=== PATIENT | male | born 1935 | race Caucasian/White ===

== ENCOUNTER 2016-08-16 19:32 | Inpatient (IN) ==
[2016-08-16] MEDS ORDERED: 0.9 % Sodium Chloride 1,000 ML IVC ONE ×2 (19:54→21:11)
[2016-08-16 20:40] LABS: Basophils % 0.4 %; Eosinophils % 0.2 %; Hematocrit 39.2 % (37.5-50.1); Hemoglobin 12.4 g/dL (12.9-16.9); Immature Granulocytes % 0.7 % (0-4); Lymphocytes # 0.2 K/mcL (0.6-4.6); Mean Corpuscular HGB Conc 31.6 g/dL (31.6-35.5); Mean Corpuscular Hemoglobin 30.7 pg (28.0-33.3); Mean Platelet Volume 11.8 fL (9.4-12.4); Monocytes # 0.8 K/mcL (0.0-1.3); Monocytes % 7.6 %; Neutrophils # 9.3 K/mcL (1.6-8.9); Platelet Count 123 K/mcL (140-400); Red Blood Count 4.04 M/mcL (4.19-5.50); Red Cell Distribution Width 14.8 % (11.5-14.5); Segmented Neutrophils % 89.1 %
[2016-08-16 20:47] LABS: INR 1.6; Prothrombin Time 17.2 Seconds (9.4-12.1)
[2016-08-16 20:50] LABS: Activated Partial Thrombo Time 30.3 Seconds (26.0-36.0)
[2016-08-16 20:56] LABS: Calcium 8.8 mg/dL (8.6-10.8)
[2016-08-16 20:57] LABS: Potassium 5.5 mEq/L (3.5-4.5)
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
[2016-08-16] MEDS ORDERED: Levofloxacin 750 MG/150 ML 750 MG/150 ML BAG IVPB ONE (22:05)
[2016-08-17] MEDS ORDERED: Calcium Gluconate 1,000 MG in D5% in Water 100 ML IVPB ONE (01:13)
[2016-08-17] MEDS ORDERED: *HR* Morphine 2 MG/ML SYRINGE IVP PRN (01:16)
[2016-08-17] MEDS ORDERED: Ondansetron ODT 4 MG TAB.RAPDIS SL PRN (01:16)
[2016-08-17] MEDS ORDERED: *HR* OxyCODONE Immed Rel 5 MG TABLET PO PRN (01:16)
[2016-08-17] MEDS ORDERED: Naloxone 0.4 MG/ML INJ IVP PRN (01:16)
[2016-08-17] MEDS ORDERED: Ipratropium/Albuterol Neb 3 ML IH ONE (01:27)
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
[2016-08-17 03:32] LABS: Basophils % 0.2 %; Eosinophils % 0.1 %; Hematocrit 34.9 % (37.5-50.1); Immature Granulocytes % 0.3 % (0-4); Lymphocytes # 0.5 K/mcL (0.6-4.6); Lymphocytes % 5.3 %; Mean Corpuscular HGB Conc 31.5 g/dL (31.6-35.5); Mean Corpuscular Hemoglobin 30.9 pg (28.0-33.3); Mean Platelet Volume 11.8 fL (9.4-12.4); Monocytes # 0.9 K/mcL (0.0-1.3); Monocytes % 9.3 %; Platelet Count 116 K/mcL (140-400); Red Blood Count 3.56 M/mcL (4.19-5.50); Red Cell Distribution Width 15.1 % (11.5-14.5); Segmented Neutrophils % 84.8 %
[2016-08-17 03:42] LABS: Calcium 8.6 mg/dL (8.6-10.8); Phosphorous 4.4 mg/dL (2.3-4.7); Potassium 5.1 mEq/L (3.5-4.5)
[2016-08-17] MEDS ORDERED: Sodium Bicarbonate 75 MEQ in 0.45 % Sodium Chloride 1,000 ML IVC SCH (07:45)
[2016-08-17] MEDS ORDERED: Furosemide 20 MG/2 ML VIAL IVP SCH (09:00)
[2016-08-17] MEDS ORDERED: GLUCOSAMINE PO SCH (09:00)
[2016-08-17] MEDS ORDERED: amLODIPine 5 MG TABLET PO SCH (09:00)
[2016-08-17] MEDS ORDERED: Valsartan 160 MG TABLET PO SCH (09:00)
[2016-08-17] MEDS ORDERED: Cholecalciferol (D-3) 1,000 UNIT TABLET PO SCH (09:00)
[2016-08-17] MEDS ORDERED: *HR* Rivaroxaban 15 MG TABLET PO SCH (09:00)
--- NOTE | 2016-08-17 09:02 | Cardiology Consult Note ---
Date of Encounter: 08/17/16 Time of Encounter: 08:59 Assessment and Plan Discussion w patient/family: The assessment and plan as outlined above was discussed with the patient and/or family members who expressed understanding and agreement. All questions were answered. Thank you for involving us in the care of your patient. Please call with any questions. near syncope: do not think this is cardiac in nature elevated trop: last cath as per record did not show any CAD, could be related to worsening renal function c/c afib; asymptomatic , rate controlled RBBB: old plan; a/w fluids will review echo no indications for cath at present Thanks History of Present Illness History of present illness: Mr. Mcqueen is a 80 year old male ith H of atrial fibrilation, CAD, HTN, HLD, and CKD who presents after a fall at home. Patient reports that he was at home in his kitchen this afternoon when he became lightheaded and fell. He reports that he was down for 1-1.5 hours before family found him. He was unable to get up on his own due to pain and weakness. He hit his face on a small table but denies any loss of consciousness. Patient reports that for the past 3-4 days he has had a nonproductive cough, congestion and nausea. He was seen by his PCP today, diagnosed with bronchitis and pleurisy, and started on Levaquin. Patient denies any fevers/chills, changes in vision, headaches, shortness of breath, chest pain or pressure, abdominal pain, or changes in bowel or bladder function. In the ED, temperature 100.6. Patient is in atrial fibrillation, rate controlled. Blood pressure 90s-100s/60s. On arrival was 86% on RA, improved with 2L supplemental oxygen. Labs revealed a potassium of 5.5, Creatinine 2.74 (previous 1.91), CK 462 and troponin of 0.52 (previous 0.02). CXR showed enlarged cardiac silhouette and pulmonary vascular congestion. CT c-spine and CT head negative for any acute injuries. CT face showed periorbital and right premolar subcutaneous soft tissue swelling, no fracture. He denies any cp , sob, His EKG reviewed by me shows afib with RBBB which is old echo is pending Past Med Surg Social Fam HX - Past Medical History Medical history: atrial fibrillation, coronary artery disease, hyperlipidemia, hypertension, renal disease, other Psychiatric history: no psych history - Past Surgical History Surgical History: other - Social History Smoking Status: Current every day smoker Smokeless Tobacco Status: No Alcohol use: occasionally Drug use: none - Family History Son Hx Family Cardiac Disorders: Yes Medications and Allergies Aspirin 81 mg PO DAILY 11/01/15 [History] Cholecalciferol (D-3) [Vitamin D] 2,000 unit PO DAILY 11/01/15 [History] Amlodipine [Norvasc] 5 mg PO DAILY #30 tablet 11/02/15 [Rx] Atorvastatin [Lipitor] 40 mg PO HS tablet 11/02/15 [Rx] Metoprolol [Lopressor] 50 mg PO BID #60 tablet 11/02/15 [Rx] Acetaminophen [Tylenol] 1,000 mg PO BID 08/16/16 [History] Gluc Alvarez/Chondro Alvarez A/Vit C/Mn [Glucosamine Chondroitin Tab] 1 each PO DAILY [History] Levofloxacin [Levofloxacin] 500 mg PO DAILY 08/16/16 [History] Rivaroxaban [Xarelto] 15 mg PO DAILY 08/16/16 [History] Valsartan [Valsartan] 160 mg PO DAILY 08/16/16 [History] Allergies No Known Allergies Allergy (Verified 11/01/15 00:22) All Systems Review: A 10-system review of systems was performed and is negative for pertinent findings except as documented above in the HPI. Physical Examination Vital Signs, Last 4 Hours Temp Pulse Resp BP Pulse Ox 08/17/16 06:31 97.9 F 77 16 114/68 100 08/17/16 05:30 98.5 F 82 18 144/78 93 L Skin: Other (moderate amount of bruises due to fall ) Results 08/17/16 03:08 08/17/16 03:08 Lab Results 08/17/16 08/17/16 08/17/16 03:08 03:08 03:08 WBC 9.5 Hgb 11.0 L Hct 34.9 L Plt Count 116 L Sodium 137 Potassium 5.1 H Chloride 111 H Carbon Dioxide 15 L BUN 55 H Creatinine 2.67 H Glucose 114 H Calcium 8.6 Magnesium Troponin I 2.82 H* 08/17/16 03:08 WBC Hgb Hct Plt Count Sodium Potassium Chloride Carbon Dioxide BUN Creatinine Glucose Calcium Magnesium 2.0 Troponin I Consult Discharge Plan - Plan Referrals: Benoit Cosme Jr, MD [Primary Care Provider] -
[2016-08-17] MEDS ORDERED: Albuterol 2.5 MG/3 ML NEBULIZER IH PRN (09:05)
--- NOTE | 2016-08-17 09:05 | Event Note ---
Date of Encounter: 08/17/16 Time of Encounter: 09:00 80 yo M with pmh CKD 3, atrial fibrillation and HTn who presents after falling at home. He did have upper respiratory symptoms for the past week. 1. fall. ct head negative. hold Xarelto. neuro-check q2 for [address] C- spine and CT head negative for any acute injuries. CT face showed periorbital and right premolar subcutaneous soft tissue swelling, no fracture. 2. dehydration. 3. Elevated troponins likely secondary to SAMANTHA and rhabdomyolysis. check LFTs. Prior [facility] in 2008 showed nonobstructive CAD. 4. Acute worsening of CKD 3 with hyperkalemia and metabolic acidosis. IV bicarbonate drip. close monitoring of kidney function. strict I/O. hold valsartan 5. Acute rhabdomyolysis. bicarb drip. IV lasix. close monitoring of cpk. 6. hypoxia. could be secondary to COPD exacerbation. CT chest r/o aspiration PNA. oxygen. nebs q4hr. mucinex 7. htn. low BP. hold amlodipine and valsartan.
[2016-08-17] MEDS: Aspirin 81 MG TAB.CHEW PO SCH (09:40)
[2016-08-17] MEDS: Ipratropium/Albuterol Neb 3 ML IH SCH ×6 (11:18→23:42)
[2016-08-17 12:55] LABS: Bilirubin,Urine Negative (Negative); Blood,Urine Large (Negative); Clarity,Urine Clear (Clear); Color,Urine Yellow (Yellow); Glucose,Urine (UA) Normal (Normal); Ketones,Urine Negative (Negative); Leukocyte Esterase,Urine Negative (Negative); Nitrite,Urine Negative (Negative); Protein,Urine 30 mg/dL (Neg-Trace); Specific Gravity,Urine 1.011 (1.010-1.025); Urobilinogen,Urine Normal (Normal)
[2016-08-17 12:57] LABS: Bacteria,Urine None Seen per hpf (None-Few); Hyaline Casts,Urine None Seen per lpf (None-Few); Squamous Epithelial Cell,Urine Moderate per lpf (None-Few); WBC,Urine 0-3 per hpf (0-3)
[2016-08-17 13:38] LABS: Albumin 3.8 g/dL (3.5-5.0); Bilirubin,Direct 0.4 mg/dL (0.0-0.5); Bilirubin,Indirect 0.3 mg/dL (0.0-1.2); Bilirubin,Total 0.7 mg/dL (0.2-1.2); Potassium 4.7 mEq/L (3.5-4.5); Total Protein 7.8 g/dL (6.0-8.3)
[2016-08-17] MEDS ORDERED: Furosemide 240 MG in D5% in Water 96 ML IVC SCH (15:26)
[2016-08-17] MEDS: Sodium Bicarbonate 75 MEQ in 0.45 % Sodium Chloride 1,000 ML IVC SCH (16:26)
[2016-08-17] MEDS: Doxycycline 100 MG CAPSULE PO SCH (18:27)
[2016-08-17] MEDS: Acetaminophen 325 MG TABLET PO PRN (18:27)
[2016-08-17] MEDS ORDERED: levoFLOXacin 750 MG TABLET PO SCH (21:00)
[2016-08-18] MEDS: Doxycycline 100 MG CAPSULE PO SCH ×3 (01:43→20:07)
[2016-08-18] MEDS: Sodium Bicarbonate 75 MEQ in 0.45 % Sodium Chloride 1,000 ML IVC SCH ×2 (05:18→16:30)
[2016-08-18] MEDS: Ipratropium/Albuterol Neb 3 ML IH SCH ×5 (06:15→21:03)
[2016-08-18 07:22] LABS: Basophils % 0.2 %; Eosinophils % 0.2 %; Hematocrit 37.1 % (37.5-50.1); Hemoglobin 12.1 g/dL (12.9-16.9); Immature Granulocytes % 0.4 % (0-4); Lymphocytes # 0.4 K/mcL (0.6-4.6); Mean Corpuscular HGB Conc 32.6 g/dL (31.6-35.5); Mean Corpuscular Volume 95.1 fL (83.0-100.0); Mean Platelet Volume 12.1 fL (9.4-12.4); Monocytes # 0.8 K/mcL (0.0-1.3); Monocytes % 8.5 %; Neutrophils # 8.2 K/mcL (1.6-8.9); Platelet Count 114 K/mcL (140-400); Red Cell Distribution Width 15.1 % (11.5-14.5); Segmented Neutrophils % 86.7 %
[2016-08-18 07:46] LABS: Calcium 8.7 mg/dL (8.6-10.8); Magnesium 1.5 mg/dL (1.6-2.6); Phosphorous 4.6 mg/dL (2.3-4.7); Potassium 4.1 mEq/L (3.5-4.5)
[2016-08-18] MEDS ORDERED: Magnesium Sulfate 1 GM in D5% in Water 100 ML IVPB ONE (07:58)
[2016-08-18] MEDS ORDERED: Furosemide 240 MG in D5% in Water 96 ML IVC SCH (08:19)
[2016-08-18] MEDS ORDERED: *HR* OxyCODONE Immed Rel 5 MG TABLET PO PRN (08:19)
--- NOTE | 2016-08-18 10:25 | Cardiology Progress Note ---
Date of Encounter: 08/18/16 Time of Encounter: 10:15 Assessment and Plan Discussion w patient/family: The assessment and plan as outlined above was discussed with the patient and/or family members who expressed understanding and agreement. All questions were answered. Thank you for involving us in the care of your patient. Please call with any questions. near syncope: do not think this is cardiac in nature elevated trop: last cath as per record did not show any CAD, could be related to worsening renal function c/c afib; asymptomatic , rate controlled RBBB: old plan; a/w fluids will review echo no indications for cath at present do not think the syncope is cardiac in nature Thanks Subjective Principal diagnosis: syncope, elevated Trop Interval history: Pt denies any cp sob, pnd echo at bedside: briefly : ef is normal will review in more detail Objective Vital Signs, Last 4 Hours Temp Pulse Resp BP Pulse Ox 08/18/16 08:03 97.8 F 93 18 107/56 93 L Results 08/18/16 06:36 08/18/16 06:36 Lab Results 08/17/16 08/17/16 08/18/16 13:15 13:15 06:36 WBC 9.5 Hgb 12.1 L Hct 37.1 L Plt Count 114 L Sodium 137 Potassium 4.7 H Chloride 109 Carbon Dioxide 18 L BUN 53 H Creatinine 2.67 H Glucose 107 H Calcium 9.0 Magnesium Total Bilirubin 0.7 AST 135 H ALT 45 Alkaline Phosphatase 85 Troponin I 3.97 H* 08/18/16 06:36 WBC Hgb Hct Plt Count Sodium 135 L Potassium 4.1 Chloride 102 Carbon Dioxide 19 BUN 57 H Creatinine 2.82 H Glucose 101 H Calcium 8.7 Magnesium 1.5 L Total Bilirubin AST ALT Alkaline Phosphatase Troponin I Consult Discharge Plan - Plan Referrals: Benoit Cosme Jr, MD [Primary Care Provider] - (office will call patient..)
[2016-08-18] MEDS: Acetaminophen 325 MG TABLET PO PRN (10:55)
[2016-08-18] MEDS: Aspirin 81 MG TAB.CHEW PO SCH (10:56)
[2016-08-18 14:11] LABS: Basophils % 0.2 %; Eosinophils % 0.4 %; Hematocrit 34.6 % (37.5-50.1); Hemoglobin 11.4 g/dL (12.9-16.9); Immature Granulocytes % 0.2 % (0-4); Lymphocytes # 0.6 K/mcL (0.6-4.6); Lymphocytes % 7.8 %; Mean Corpuscular HGB Conc 32.9 g/dL (31.6-35.5); Mean Corpuscular Hemoglobin 31.3 pg (28.0-33.3); Mean Corpuscular Volume 95.1 fL (83.0-100.0); Mean Platelet Volume 11.8 fL (9.4-12.4); Monocytes # 0.7 K/mcL (0.0-1.3); Monocytes % 8.3 %; Neutrophils # 6.8 K/mcL (1.6-8.9); Platelet Count 109 K/mcL (140-400); Red Blood Count 3.64 M/mcL (4.19-5.50); Segmented Neutrophils % 83.1 %
[2016-08-18 14:37] LABS: Calcium 8.6 mg/dL (8.6-10.8); Potassium 3.9 mEq/L (3.5-4.5); Uric Acid 10.7 mg/dL (3.5-7.2)
--- NOTE | 2016-08-18 15:23 | ECHO - Doppler Report ---
Echocardiogram Name: George Mcqueen Date of Study: 08/18/2016 Date: 1935 Ht: 73.0 in Medical Record#: [id number] Age: 80 Wt: 221.0 lb Gender: Male BSA: 2.25 Order #: [id number] Location: [facility] Room #: 2A48 Reading Physician: Seth Butler MD, [facility] Relay Tester Helper: Moraima Akins RVT Ordering Physician: Angeles Darling DO Primary Physician: Benoit Cosme MD Indications: Pulmonary edema on CXR Impressions: LVEF 55-60%. Indeterminate diastolic function. The aortic root is mildly dilated - 4.3cm at sinus of Valsalva (approximately 4.2cm 10/2015 echo) No pulmonary hypertension. The IVC is dilated. Moderately dilated left atrium. Left Ventricular Wall Motion: Rest Echo Findings All wall segments showed normal motion. Findings: Study Quality * Technically adequate exam. Right Ventricle * Normal right ventricular structure and function. Interatrial Septum * No evidence of PFO by color Doppler. Pericardium * The pericardium appears normal. ECG Findings * Normal sinus rhythm. Left Ventricle * LVEF 55-60%. * Indeterminate diastolic function. Aorta * The aortic root is mildly dilated. * The aortic root is 4.3cm at sinus of valsalva Mitral Valve * Normal mitral valve structure. * No mitral stenosis. * Trace mitral regurgitation. Aortic Valve * No aortic stenosis. * Aortic valve not well visualized. * Mild aortic regurgitation. * Aortic leaflets thickened Tricuspid Valve * Trace tricuspid regurgitation. * No tricuspid stenosis. * Estimated RVSP is 24 mmHg. * No pulmonary hypertension. * Estimated RA pressure is 5-8 mmHg. Pulmonic Valve * No pulmonic stenosis. * Trace pulmonic regurgitation. Right Atrium * Mildly dilated right atrium. Left Atrium * Moderately dilated left atrium. IVC * The IVC is dilated. * > 50% respiratory change History Hypertension Hypercholesteremia 11/01/15 a Previous Echo was performed. Measurements: BP: 144/ 80 2D Normal Values RVIDd: 3.12 cm <2.7 cm IVSd: 1.23 cm 0.6 - 1.0 cm LVIDd: 5.04 cm 3.7 - 5.6 cm LVPWd: 1.02 cm 0.6 - 1.1 cm LVIDs: 4.03 cm 1.5 - 3.6 cm AO: 3.00 cm < 4.0 cm LA: 4.70 cm 2.0 - 4.0cm %FS: 20.00 cm >25 % LVOT Diam: 2.10 cm LA volume: 79 Mitral Valve Peak E:.80 m/sec Peak E' Lat Marco Antonio:15 cm/s Peak E' Med Marco Antonio:13.4 cm/s E/E' Lat Ratio:5.3 E/E' Med Ratio:6 Aortic Valve AI pressure Half-time: 785.00 msec Tricuspid Valve TV Regurg Peak Grad: 24.00mmHg TV Regurg Peak Marco Antonio: 2.08m/sec Updated by Seth Butler MD, FACC on 08/18/2016 3:14:32 PM electronically signed on 08/18/2016 3:19:20 PM with status of Final Wall Motion Andres: 1=Normal, 2=Hypokinesis, 3=Akinesis, 4=Dyskinesis, 5=Aneurysmal, 6=Hyperkinetic, X=Not Visualized (Blank)=Missing
--- NOTE | 2016-08-18 16:22 | Internal Med Progress Note ---
Date of Encounter: 08/18/16 Time of Encounter: 12:30 - Assessment and plan (1) Fall Current Visit: Yes Status: Acute Assessment and plan: ct head negative. hold Xarelto. neuro-check q2 for [address] C-spine and CT head negative for any acute injuries. CT face showed periorbital and right premolar subcutaneous soft tissue swelling, no fracture. Qualifiers: Encounter type: initial encounter Qualified Code(s): W19.XXXA - Unspecified fall, initial encounter (2) Dehydration Current Visit: Yes Status: Acute Assessment and plan: secondary to infection. IV fluids (3) Rhabdomyolysis Current Visit: Yes Status: Acute Assessment and plan: secondary to muscle injury (ribs fracture). CPK peaked at 9422. IV bicarbonate drip. close monitoring of kidney function. Qualifiers: Rhabdomyolysis type: non-traumatic Qualified Code(s): M62.82 - Rhabdomyolysis (4) Acute renal failure superimposed on stage 3 chronic kidney disease Current Visit: Yes Status: Acute Assessment and plan: secondary to rhabdomyolysis and severe dehydration. IVF. close monitoring of kidney function. avoid nephrotoxins as possible. (5) Acute hypoxemic respiratory failure Current Visit: Yes Status: Acute Assessment and plan: Secondary to COPD exacerbation and low volume inspiration due to ribs fractures. CT of the chest showed acute nondisplaced fractures of t4, 6, 7 and 97th ribs, change nodules, mild cardiomegaly, allergy component leaflet calcification, moderately to markedly dilated pulmonary arteries, bronchitis. oxygen to keep SaO2 >92% Duonebs. Doxycycline. Mucinex Echocardiogram LVEF 55%, aortic root is mildly dilated 4.3 cm, no pulmonary hypertension, IVC dilated, moderate dilated left atrium. (6) Hypertension Current Visit: Yes Status: Acute Assessment and plan: Pressures avidly. Holding home dose of amlodipine and losartan. Qualifiers: Hypertension type: essential hypertension Qualified Code(s): I10 - Essential (primary) hypertension (7) Elevated troponin Current Visit: Yes Status: Acute Assessment and plan: Related troponin likely secondary to acute kidney injury and rhabdomyolysis. Troponin peaked at 2.97. EKG showed no acute ischemic changes. Cardiology consulted. (8) Hyperkalemia Current Visit: Yes Status: Acute Assessment and plan: Secondary to acute renal failure superimposed on CKD 3. Resolved. (9) Metabolic acidosis Current Visit: Yes Status: Acute Assessment and plan: Secondary to acute worsening of cKD 3. Resolved. (10) Atrial fibrillation Current Visit: No Status: Chronic Assessment and plan: Heart rate is adequate. Continue metoprolol. Patient on Xarelto for primary stroke prevention. holding Xarelto due to head trauma. may resume tomorrow. Qualifiers: Atrial fibrillation type: chronic Qualified Code(s): I48.2 - Chronic atrial fibrillation - Subjective Interval history: pt has pain in left ribs. mild shortness of breath on exertion. - Constitutional Vitals: Temp Pulse Resp BP Pulse Ox 97.9 F 80 18 126/82 96 08/18/16 15:47 08/18/16 15:47 08/18/16 15:47 08/18/16 15:47 08/18/16 15:47 General appearance: Present: A&O X 3, pleasant, no acute distress, answers questions appropriately - ENT ENT exam: Present: mucous membranes moist - Neck Neck exam general surgery: Present: supple, trachea midline. Absent: lymphadenopathy - Respiratory Respiratory exam: Present: CTAB. Absent: wheezes - Cardiovascular Cardiovascular exam: Present: RRR - GI/Abdominal GI/Abdominal exam: Present: normal bowel sounds, soft. Absent: distended, tenderness - Extremities Exam Extremities exam: Absent: pedal edema - Neurological Exam Neurological exam: Present: alert, no focal deficits. Absent: facial droop, speech deficit - Skin Additional comments: Left periorbital bruises. Mild shortness of breath on exertion. Internal Medicine: Result - Labs CBC & Chem 7: 08/18/16 13:54 08/18/16 13:54 Labs: Short CBC 08/18/16 08/18/16 Range/Units 06:36 13:54 WBC 9.5 8.2 (4.3-11.1) K/mcL Hgb 12.1 L 11.4 L (12.9-16.9) g/dL Hct 37.1 L 34.6 L (37.5-50.1) % Plt Count 114 L 109 L (140-400) K/mcL Neutrophils # 8.2 6.8 (1.6-8.9) K/mcL BMP 08/18/16 08/18/16 06:36 13:54 Sodium 135 L 135 L Potassium 4.1 3.9 Chloride 102 100 Carbon Dioxide 19 20 BUN 57 H 63 H Creatinine 2.82 H 3.45 H Glucose 101 H 123 H Calcium 8.7 8.6 - ABG Interpretation ABG results: PT/INR, D-dimer PT 17.2 Seconds (9.4-12.1) H 08/16/16 20:16 Consult Discharge Plan - Plan Referrals: Benoit Cosme Jr, MD [Primary Care Provider] - (office will call patient..)
[2016-08-19] MEDS: Sodium Bicarbonate 75 MEQ in 0.45 % Sodium Chloride 1,000 ML IVC SCH ×2 (00:14→15:16)
[2016-08-19] MEDS: Ipratropium/Albuterol Neb 3 ML IH SCH ×6 (04:17→21:04)
[2016-08-19 04:22] LABS: Creatinine,Urine 92 mg/dL
[2016-08-19 06:32] LABS: Basophils % 0.2 %; Eosinophils % 0.5 %; Hematocrit 34.3 % (37.5-50.1); Immature Granulocytes % 0.3 % (0-4); Lymphocytes # 0.6 K/mcL (0.6-4.6); Lymphocytes % 9.9 %; Mean Corpuscular HGB Conc 32.1 g/dL (31.6-35.5); Mean Corpuscular Volume 93.5 fL (83.0-100.0); Mean Platelet Volume 11.4 fL (9.4-12.4); Monocytes # 0.6 K/mcL (0.0-1.3); Monocytes % 11.1 %; Neutrophils # 4.5 K/mcL (1.6-8.9); Platelet Count 110 K/mcL (140-400); Red Blood Count 3.67 M/mcL (4.19-5.50); Red Cell Distribution Width 14.9 % (11.5-14.5)
[2016-08-19 06:53] LABS: BUN/Creatinine Ratio 22 (6-26); Blood Urea Nitrogen 69 mg/dL (8-26); Calcium 8.2 mg/dL (8.6-10.8); Carbon Dioxide 21 mEq/L (19-29); Chloride 100 mEq/L (98-109); Glucose 105 mg/dL (70-99); Magnesium 1.6 mg/dL (1.6-2.6); Osmolality,Calculated 300 (280-300); Phosphorous 5.4 mg/dL (2.3-4.7); Potassium 3.6 mEq/L (3.5-4.5); Sodium 135 mEq/L (136-145); Uric Acid 10.9 mg/dL (3.5-7.2); eGFR For African Americans 23 (> 60); eGFR For Non-African Americans 19 (> 60)
[2016-08-19 06:54] LABS: Creatine Kinase > 4267 Units/L (30-200); Lactate Dehydrogenase 334 Units/L (159-327)
--- NOTE | 2016-08-19 06:54 | Electrocardiograph Report ---
[address] [address] Test Date: 2016-08-16 Pat Name: George Mcqueen Department: 104 Room: 2A48 Gender: M Visual Lead: : 1935 Requested By: Juan Pastrana Order Number: [id number] Reading MD: Seth Butler MD Measurements Intervals [place] Rate: 89 P: [place]: 0 QRS: 56 QRSD: 150 T: 19 QT: 366 QTc: 413 Interpretive Statements ATRIAL FIBRILLATION RIGHT BUNDLE BRANCH BLOCK Electronically Signed On 08-19-2016 6:52:38 EST by Seth Butler MD
[2016-08-19] MEDS: Aspirin 81 MG TAB.CHEW PO SCH (08:22)
[2016-08-19] MEDS: Doxycycline 100 MG CAPSULE PO SCH ×2 (08:23→22:35)
--- NOTE | 2016-08-19 09:37 | Electrocardiograph Report ---
[address] [place], [place] [address] Test Date: 2016-08-17 Pat Name: George Mcqueen Department: 112 Room: 2A48 Gender: M Value Advisor: : 1935 Requested By: Anneliese Rivera Order Number: [id number] Reading MD: Seth Butler MD Measurements Intervals [place] Rate: 80 P: [place]: 0 QRS: 29 QRSD: 153 T: 9 QT: 394 QTc: 431 Interpretive Statements ATRIAL FIBRILLATION RIGHT BUNDLE BRANCH BLOCK Electronically Signed On 08-19-2016 9:36:22 EST by Seth Butler MD
[2016-08-19] MEDS: Acetaminophen 325 MG TABLET PO PRN (11:36)
[2016-08-19 14:30] LABS: Calcium 8.1 mg/dL (8.6-10.8); Potassium 3.7 mEq/L (3.5-4.5)
--- NOTE | 2016-08-19 15:31 | Internal Med Progress Note ---
Date of Encounter: 08/19/16 Time of Encounter: 11:30 - Assessment and plan (1) Fall Current Visit: Yes Status: Acute Assessment and plan: ct head negative. CT C-spine and CT head negative for any acute injuries. CT face showed periorbital and right premolar subcutaneous soft tissue swelling, no fracture. Qualifiers: Encounter type: initial encounter Qualified Code(s): W19.XXXA - Unspecified fall, initial encounter (2) Dehydration Current Visit: Yes Status: Acute Assessment and plan: resolved. secondary to infection. IV fluids (3) Rhabdomyolysis Current Visit: Yes Status: Acute Assessment and plan: secondary to muscle injury (ribs fracture). CPK peaked at 9422. 08/19: CPK and BUN/Cr levels are trending down. continue IV bicarbonate drip. close monitoring of kidney function. Qualifiers: Rhabdomyolysis type: non-traumatic Qualified Code(s): M62.82 - Rhabdomyolysis (4) Acute renal failure superimposed on stage 3 chronic kidney disease Current Visit: Yes Status: Acute Assessment and plan: secondary to rhabdomyolysis and severe dehydration. slowly improving. IVF. close monitoring of kidney function. avoid nephrotoxins as possible. (5) Acute hypoxemic respiratory failure Current Visit: Yes Status: Acute Assessment and plan: Secondary to COPD exacerbation and low volume inspiration due to ribs fractures. CT of the chest showed acute nondisplaced fractures of t4, 6, 7 and 97th ribs, change nodules, mild cardiomegaly, aortic component leaflet calcification, moderately to markedly dilated pulmonary arteries, bronchitis. oxygen to keep SaO2 >92% Duonebs. Doxycycline. Mucinex Echocardiogram LVEF 55%, aortic root is mildly dilated 4.3 cm, no pulmonary hypertension, IVC dilated, moderate dilated left atrium. (6) Hypertension Current Visit: Yes Status: Acute Assessment and plan: Pressures avidly. Holding home dose of amlodipine and losartan. Qualifiers: Hypertension type: essential hypertension Qualified Code(s): I10 - Essential (primary) hypertension (7) Elevated troponin Current Visit: Yes Status: Acute Assessment and plan: Related troponin likely secondary to acute kidney injury and rhabdomyolysis. Troponin peaked at 2.97. EKG showed no acute ischemic changes. Cardiology consulted. (8) Hyperkalemia Current Visit: Yes Status: Acute Assessment and plan: Secondary to acute renal failure superimposed on CKD 3. Resolved. (9) Metabolic acidosis Current Visit: Yes Status: Acute Assessment and plan: Secondary to acute worsening of cKD 3. Resolved. (10) Atrial fibrillation Current Visit: No Status: Chronic Assessment and plan: Heart rate is adequate. Continue metoprolol. Patient on Xarelto for primary stroke prevention. holding Xarelto due to head trauma. may resume tomorrow. Qualifiers: Atrial fibrillation type: chronic Qualified Code(s): I48.2 - Chronic atrial fibrillation - Subjective Interval history: pt complains of mild pain when taking a deep breath. - Constitutional Vitals: Temp Pulse Resp BP Pulse Ox 97.8 F 80 16 100/61 94 L 08/19/16 10:34 08/19/16 10:34 08/19/16 11:04 08/19/16 10:34 08/19/16 11:04 General appearance: Present: cooperative, A&O X 3, pleasant, no acute distress, answers questions appropriately - Eye Eye exam: Present: PERRL, sclera anicteric - Neck Neck exam general surgery: Present: supple, trachea midline. Absent: lymphadenopathy - Respiratory Respiratory exam: Present: wheezes (mild at lower lung wills) - Cardiovascular Cardiovascular exam: Present: RRR - GI/Abdominal GI/Abdominal exam: Present: normal bowel sounds, soft. Absent: distended, tenderness - Extremities Exam Extremities exam: Absent: pedal edema - Skin Skin exam: Absent: intact (left periorbital area with bruises and small hematoma.) Internal Medicine: Result - Labs CBC & Chem 7: 08/19/16 05:58 08/19/16 13:48 Labs: Short CBC 08/19/16 Range/Units 05:58 WBC 5.7 (4.3-11.1) K/mcL Hgb 11.0 L (12.9-16.9) g/dL Hct 34.3 L (37.5-50.1) % Plt Count 110 L (140-400) K/mcL Neutrophils # 4.5 (1.6-8.9) K/mcL BMP 08/19/16 08/19/16 05:58 13:48 Sodium 135 L 134 L Potassium 3.6 3.7 Chloride 100 98 Carbon Dioxide 21 23 BUN 69 H 75 H Creatinine 3.18 H 3.02 H Glucose 105 H 123 H Calcium 8.2 L 8.1 L - ABG Interpretation ABG results: PT/INR, D-dimer PT 17.2 Seconds (9.4-12.1) H 08/16/16 20:16 Consult Discharge Plan - Plan Referrals: Benoit Cosme Jr, MD [Primary Care Provider] - (office will call patient to schedule for an appointment..)
[2016-08-19] MEDS: *HR* Rivaroxaban 15 MG TABLET PO SCH (16:49)
[2016-08-20] MEDS: Ipratropium/Albuterol Neb 3 ML IH SCH ×7 (00:15→23:23)
[2016-08-20 07:11] LABS: Hemoglobin 10.4 g/dL (12.9-16.9)
[2016-08-20 07:13] LABS: Basophils % 0.2 %; Eosinophils # 0.1 K/mcL (0.0-0.6); Eosinophils % 2.7 %; Hematocrit 32.9 % (37.5-50.1); Immature Granulocytes % 0.5 % (0-4); Immature Platelets 6.5 % (1.1-6.1); Lymphocytes # 0.7 K/mcL (0.6-4.6); Lymphocytes % 14.7 %; Mean Corpuscular HGB Conc 31.6 g/dL (31.6-35.5); Mean Corpuscular Hemoglobin 29.9 pg (28.0-33.3); Mean Corpuscular Volume 94.5 fL (83.0-100.0); Mean Platelet Volume 11.5 fL (9.4-12.4); Monocytes # 0.6 K/mcL (0.0-1.3); Monocytes % 14.1 %; Platelet Count 104 K/mcL (140-400); Red Blood Count 3.48 M/mcL (4.19-5.50); Red Cell Distribution Width 14.9 % (11.5-14.5); Segmented Neutrophils % 67.8 %
[2016-08-20 07:18] LABS: Calcium 8.3 mg/dL (8.6-10.8); Magnesium 1.9 mg/dL (1.6-2.6); Phosphorous 4.8 mg/dL (2.3-4.7); Potassium 3.7 mEq/L (3.5-4.5)
[2016-08-20] MEDS: Aspirin Enteric Coated 81 MG Tablet PO SCH (08:54)
[2016-08-20] MEDS: Doxycycline 100 MG CAPSULE PO SCH ×2 (08:54→20:53)
--- NOTE | 2016-08-20 09:28 | Internal Med Progress Note ---
Date of Encounter: 08/20/16 Time of Encounter: 09:25 - Assessment and plan (1) Acute kidney failure Current Visit: Yes Status: Acute Assessment and plan: Acute and chronic renal failure, CKD4 secondary to rhabdomyolysis possibly from multiple injuries/fall and dehydration continue holding Lipitor Continue bicarbonate drip, cannot increase fluid rate more than 75 mL's per hours the patient is already congested Consider repeating chest x-ray was Start Lasix IV 20 mg daily Qualifiers: Acute renal failure type: unspecified Qualified Code(s): N17.9 - Acute kidney failure, unspecified (2) Cellulitis Current Visit: Yes Status: Acute Assessment and plan: Left lower extremity cellulitis Continue doxycycline day 4 Qualifiers: Site of cellulitis: extremity Site of cellulitis of extremity: lower extremity Laterality: left Qualified Code(s): L03.116 - Cellulitis of left lower limb (3) Acute hypoxemic respiratory failure Current Visit: Yes Status: Acute Assessment and plan: Secondary to COPD exacerbation and low volume inspiration due to ribs fractures. CT of the chest showed acute nondisplaced fractures of t4, 6, 7 and 97th ribs, change nodules, mild cardiomegaly, aortic component leaflet calcification, moderately to markedly dilated pulmonary arteries, bronchitis. oxygen to keep SaO2 >92% Duonebs. Doxycycline Start prednisone Mucinex Echocardiogram LVEF 55%, aortic root is mildly dilated 4.3 cm, no pulmonary hypertension, IVC dilated, moderate dilated left atrium. (4) COPD exacerbation Current Visit: Yes Status: Acute (5) Closed head injury Current Visit: Yes Status: Acute Assessment and plan: Secondary to fall CT scan of the head and C-spine did not show any fractures. CT face showed periorbital and right premolar subcutaneous soft tissue swelling , no fracture. Qualifiers: Encounter type: initial encounter Qualified Code(s): S09.90XA - Unspecified injury of head, initial encounter (6) NSTEMI (non-ST elevated myocardial infarction) Current Visit: Yes Status: Acute Assessment and plan: Likely secondary to demand ischemia Was evaluated by cardiology ( signed off) Medical management recommended, cecal episode not cardiac in nature elevated trop: last cath as per record did not show any CAD, could be related to worsening renal function Continue aspirin (7) Rhabdomyolysis Current Visit: Yes Status: Acute Assessment and plan: secondary to muscle injury (ribs fracture). CPK peaked at 9422. 2/27: CPK and BUN/Cr levels are trending down. continue IV bicarbonate drip. close monitoring of kidney function. Qualifiers: Rhabdomyolysis type: non-traumatic Qualified Code(s): M62.82 - Rhabdomyolysis (8) Atrial fibrillation Current Visit: No Status: Chronic Assessment and plan: Heart rate is adequate. Continue metoprolol. Continue Xarelto for primary stroke prevention. held Xarelto due to head trauma at the beginning of his hospitalization Qualifiers: Atrial fibrillation type: chronic Qualified Code(s): I48.2 - Chronic atrial fibrillation - Time Spent With Patient Greater than 35 minutes - Subjective Interval history: Patient is feeling short of breath, complains of left chest pain from fractures , denies any fevers, no dysuria, no diarrhea. - Constitutional Vitals: Temp Pulse Resp BP Pulse Ox 98.6 F 81 16 122/73 98 08/20/16 07:33 08/20/16 07:33 08/20/16 07:48 08/20/16 07:33 08/20/16 07:48 General appearance: Present: cooperative, A&O X 3, pleasant, no acute distress, answers questions appropriately - Head Head exam: Present: atraumatic, normocephalic - Eye Eye exam: Present: PERRL, conjuntiva pink, sclera anicteric Pupils: Present: PERRL - Neck Neck exam general surgery: Present: supple, trachea midline. Absent: lymphadenopathy - Respiratory Respiratory exam: Present: CTAB, rales (Diffuse crackles in both lung wills). Absent: accessory muscle use, rhonchi, wheezes - Cardiovascular Cardiovascular exam: Present: RRR, +S1, +S2. Absent: diastolic murmur, gallop, rubs, systolic murmur - GI/Abdominal GI/Abdominal exam: Present: normal bowel sounds, soft, no peritoneal signs. Absent: distended, tenderness - Extremities Exam Extremities exam: Present: warm, radial pulses palpable and symetrical. Absent : calf tenderness, cyanotic, pedal edema - Neurological Exam Neurological exam: Present: CN II-XII intact, oriented X3, no focal deficits. Absent: pronater drift, facial droop, speech deficit - Skin Skin exam: Present: dry. Absent: intact Additional comments: Multiple excoriations in the lower extremities mostly on the left, erythema has decreased Internal Medicine: Result - Labs CBC & Chem 7: 08/20/16 06:16 08/20/16 06:16 Labs: Short CBC 08/20/16 Range/Units 06:16 WBC 4.4 (4.3-11.1) K/mcL Hgb 10.4 L (12.9-16.9) g/dL Hct 32.9 L (37.5-50.1) % Plt Count 104 L (140-400) K/mcL Neutrophils # 3.0 (1.6-8.9) K/mcL BMP 08/19/16 08/20/16 13:48 06:16 Sodium 134 L 138 Potassium 3.7 3.7 Chloride 98 102 Carbon Dioxide 23 24 BUN 75 H 67 H Creatinine 3.02 H 2.37 H Glucose 123 H 97 Calcium 8.1 L 8.3 L - ABG Interpretation ABG results: PT/INR, D-dimer PT 17.2 Seconds (9.4-12.1) H 08/16/16 20:16 Consult Discharge Plan - Plan Referrals: Benoit Cosme Jr, MD [Primary Care Provider] - (office will call patient to schedule for an appointment..)
[2016-08-20] MEDS ORDERED: Furosemide 40 MG/4 ML VIAL IV SCH (09:30)
[2016-08-20] MEDS: predniSONE 20 MG TABLET PO SCH (10:13)
[2016-08-20] MEDS: *HR* Rivaroxaban 15 MG TABLET PO SCH (16:45)
[2016-08-20] MEDS: Sodium Bicarbonate 75 MEQ in 0.45 % Sodium Chloride 1,000 ML IVC SCH (20:55)
[2016-08-21] MEDS: Ipratropium/Albuterol Neb 3 ML IH SCH ×6 (04:54→23:26)
[2016-08-21 07:33] LABS: Calcium 8.7 mg/dL (8.6-10.8); Potassium 3.7 mEq/L (3.5-4.5)
--- NOTE | 2016-08-21 08:40 | Internal Med Progress Note ---
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 possibly from multiple injuries/fall and dehydration improving continue holding Lipitor Continue bicarbonate drip, increase fluid rate up to 100 mL's per hour, the patient is less congested Consider repeating chest x-ray if worse Increase Lasix IV up to 20 mg twice a day Qualifiers: Acute renal failure type: unspecified Qualified Code(s): N17.9 - Acute kidney failure, unspecified (2) Cellulitis Current Visit: Yes Status: Acute Assessment and plan: Left lower extremity cellulitis Continue doxycycline day 5 Qualifiers: Site of cellulitis: extremity Site of cellulitis of extremity: lower extremity Laterality: left Qualified Code(s): L03.116 - Cellulitis of left lower limb (3) Acute hypoxemic respiratory failure Current Visit: Yes Status: Acute Assessment and plan: Secondary to COPD exacerbation and low volume inspiration due to ribs fractures. CT of the chest showed acute nondisplaced fractures of t4, 6, 7 and 97th ribs, change nodules, mild cardiomegaly, aortic component leaflet calcification, moderately to markedly dilated pulmonary arteries, bronchitis. oxygen to keep SaO2 >92% Duonebs. Doxycycline COntinue prednisone (started on Aug 20 2016) Mucinex Echocardiogram LVEF 55%, aortic root is mildly dilated 4.3 cm, no pulmonary hypertension, IVC dilated, moderate dilated left atrium. (4) COPD exacerbation Current Visit: Yes Status: Acute (5) Closed head injury Current Visit: Yes Status: Acute Assessment and plan: Secondary to fall CT scan of the head and C-spine did not show any fractures. CT face showed periorbital and right premolar subcutaneous soft tissue swelling , no fracture. Qualifiers: Encounter type: initial encounter Qualified Code(s): S09.90XA - Unspecified injury of head, initial encounter (6) NSTEMI (non-ST elevated myocardial infarction) Current Visit: Yes Status: Acute Assessment and plan: Likely secondary to demand ischemia Was evaluated by cardiology ( signed off) Medical management recommended, cecal episode not cardiac in nature elevated trop: last cath as per record did not show any CAD, could be related to worsening renal function Continue aspirin (7) Rhabdomyolysis Current Visit: Yes Status: Acute Assessment and plan: secondary to muscle injury (ribs fracture). CPK peaked at 9422. 08/19: CPK and BUN/Cr levels are trending down. continue IV bicarbonate drip. close monitoring of kidney function. Qualifiers: Rhabdomyolysis type: non-traumatic Qualified Code(s): M62.82 - Rhabdomyolysis (8) Atrial fibrillation Current Visit: No Status: Chronic Assessment and plan: Heart rate is adequate. Continue metoprolol. Continue Xarelto for primary stroke prevention. held Xarelto due to head trauma at the beginning of his hospitalization Qualifiers: Atrial fibrillation type: chronic Qualified Code(s): I48.2 - Chronic atrial fibrillation - Time Spent With Patient Greater than 35 minutes - Subjective Interval history: Patient is feeling less short of breath, complains of left chest pain from fractures, denies any fevers, no dysuria, no diarrhea. No muscle pain - Constitutional Vitals: Temp Pulse Resp BP Pulse Ox 97.8 F 81 20 129/77 92 L 08/21/16 06:31 08/21/16 06:31 08/21/16 08:33 08/21/16 06:08/21/16 08:33 General appearance: Present: cooperative, A&O X 3, pleasant, no acute distress, answers questions appropriately - Head Head exam: Present: atraumatic, normocephalic - Eye Eye exam: Present: PERRL, conjuntiva pink, sclera anicteric Pupils: Present: PERRL - Neck Neck exam general surgery: Present: supple, trachea midline. Absent: lymphadenopathy - Respiratory Respiratory exam: Present: CTAB, rales (Diffuse crackles but less intense than yesterday). Absent: accessory muscle use, rhonchi, wheezes - Cardiovascular Cardiovascular exam: Present: RRR, +S1, +S2. Absent: diastolic murmur, gallop, rubs, systolic murmur - GI/Abdominal GI/Abdominal exam: Present: normal bowel sounds, soft, no peritoneal signs. Absent: distended, tenderness - Extremities Exam Extremities exam: Present: warm, radial pulses palpable and symetrical. Absent : calf tenderness, cyanotic, pedal edema Additional comments: Multiple excoriations in both lower extremities, no erythema - Neurological Exam Neurological exam: Present: CN II-XII intact, oriented X3, no focal deficits. Absent: pronater drift, facial droop, speech deficit - Skin Skin exam: Present: dry, intact Internal Medicine: Result - Labs CBC & Chem 7: 08/20/16 06:16 08/21/16 06:13 Labs: BMP 08/21/16 06:13 Sodium 140 Potassium 3.7 Chloride 100 Carbon Dioxide 27 BUN 64 H Creatinine 2.01 H Glucose 106 H Calcium 8.7 - ABG Interpretation ABG results: PT/INR, D-dimer PT 17.2 Seconds (9.4-12.1) H 08/16/16 20:16 Consult Discharge Plan - Plan Referrals: Benoit Cosme Jr, MD [Primary Care Provider] - (office will call patient to schedule for an appointment..)
[2016-08-21] MEDS: Doxycycline 100 MG CAPSULE PO SCH ×2 (08:43→21:57)
[2016-08-21] MEDS: Aspirin Enteric Coated 81 MG Tablet PO SCH (08:43)
[2016-08-21] MEDS: predniSONE 20 MG TABLET PO SCH (08:43)
[2016-08-21] MEDS ORDERED: Furosemide 40 MG/4 ML VIAL ONE (08:46)
[2016-08-21] MEDS: Sodium Bicarbonate 75 MEQ in 0.45 % Sodium Chloride 1,000 ML IVC SCH ×2 (10:10→21:56)
[2016-08-21] MEDS: Furosemide 40 MG/4 ML VIAL IV SCH ×2 (10:11→21:56)
[2016-08-21] MEDS: *HR* Rivaroxaban 15 MG TABLET PO SCH (16:03)
[2016-08-22] MEDS: Ipratropium/Albuterol Neb 3 ML IH SCH ×6 (04:02→23:13)
[2016-08-22 07:12] LABS: Potassium 4.1 mEq/L (3.5-4.5)
--- NOTE | 2016-08-22 08:21 | Internal Med Progress Note ---
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 possibly from multiple injuries/fall and dehydration improving continue holding Lipitor Continue bicarbonate drip, increased fluid rate up to 100 mL's per hour, the patient is less congested Consider repeating chest x-ray if worse continue Lasix IV up to 20 mg twice a day Qualifiers: Acute renal failure type: unspecified Qualified Code(s): N17.9 - Acute kidney failure, unspecified (2) Cellulitis Current Visit: Yes Status: Acute Assessment and plan: Left lower extremity cellulitis Continue doxycycline day 6 Qualifiers: Site of cellulitis: extremity Site of cellulitis of extremity: lower extremity Laterality: left Qualified Code(s): L03.116 - Cellulitis of left lower limb (3) Acute hypoxemic respiratory failure Current Visit: Yes Status: Acute Assessment and plan: Secondary to COPD exacerbation and low volume inspiration due to ribs fractures. CT of the chest showed acute nondisplaced fractures of t4, 6, 7 and 97th ribs, change nodules, mild cardiomegaly, aortic component leaflet calcification, moderately to markedly dilated pulmonary arteries, bronchitis. oxygen to keep SaO2 >92% Duonebs. Doxycycline COntinue prednisone (started on Aug 20 2016) Mucinex Echocardiogram LVEF 55%, aortic root is mildly dilated 4.3 cm, no pulmonary hypertension, IVC dilated, moderate dilated left atrium. (4) COPD exacerbation Current Visit: Yes Status: Acute (5) Closed head injury Current Visit: Yes Status: Acute Assessment and plan: Secondary to fall CT scan of the head and C-spine did not show any fractures. CT face showed periorbital and right premolar subcutaneous soft tissue swelling , no fracture. Qualifiers: Encounter type: initial encounter Qualified Code(s): S09.90XA - Unspecified injury of head, initial encounter (6) NSTEMI (non-ST elevated myocardial infarction) Current Visit: Yes Status: Acute Assessment and plan: Likely secondary to demand ischemia Was evaluated by cardiology ( signed off) Medical management recommended, cecal episode not cardiac in nature elevated trop: last cath as per record did not show any CAD, could be related to worsening renal function Continue aspirin (7) Rhabdomyolysis Current Visit: Yes Status: Acute Assessment and plan: secondary to muscle injury (ribs fracture). CPK peaked at 9422. 08/19: CPK and BUN/Cr levels are trending down. continue IV bicarbonate drip. close monitoring of kidney function. Qualifiers: Rhabdomyolysis type: non-traumatic Qualified Code(s): M62.82 - Rhabdomyolysis (8) Atrial fibrillation Current Visit: No Status: Chronic Assessment and plan: Heart rate is adequate. Continue metoprolol. Continue Xarelto for primary stroke prevention. 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 Patient is feeling less short of breath, complains of left chest pain from fractures, denies any fevers, no dysuria, no diarrhea. No muscle pain - Constitutional Vitals: Temp Pulse Resp BP Pulse Ox 97.6 F 80 16 130/84 90 L 08/22/16 06:57 08/22/16 06:57 08/22/16 06:57 08/22/16 06:57 08/22/16 06:57 General appearance: Present: cooperative, A&O X 3, pleasant, no acute distress, answers questions appropriately - Head Head exam: Present: atraumatic, normocephalic - Eye Eye exam: Present: PERRL, conjuntiva pink, sclera anicteric Pupils: Present: PERRL - Neck Neck exam general surgery: Present: supple, trachea midline. Absent: lymphadenopathy - Respiratory Respiratory exam: Present: CTAB, rales (bilateral crackles). Absent: accessory muscle use, rhonchi, wheezes - Cardiovascular Cardiovascular exam: Present: RRR, +S1, +S2. Absent: diastolic murmur, gallop, rubs, systolic murmur - GI/Abdominal GI/Abdominal exam: Present: normal bowel sounds, soft, no peritoneal signs. Absent: distended, tenderness - Extremities Exam Extremities exam: Present: warm, radial pulses palpable and symetrical. Absent : calf tenderness, cyanotic, pedal edema - Neurological Exam Neurological exam: Present: CN II-XII intact, oriented X3, no focal deficits. Absent: pronater drift, facial droop, speech deficit - Skin Skin exam: Present: dry. Absent: intact (Multiple facial excoriations, and multiple lower extremity excoriations most signs of infection, erythema has subsided) Internal Medicine: Result - Labs CBC & Chem 7: 08/20/16 06:16 08/22/16 05:25 Labs: BMP 08/22/16 05:25 Sodium 141 Potassium 4.1 Chloride 98 Carbon Dioxide 29 BUN 62 H Creatinine 2.08 H Glucose 85 Calcium 9.0 - ABG Interpretation ABG results: PT/INR, D-dimer PT 17.2 Seconds (9.4-12.1) H 08/16/16 20:16 Consult Discharge Plan - Plan Referrals: Benoit Cosme Jr, MD [Primary Care Provider] - (office will call patient to schedule for an appointment..)
[2016-08-22] MEDS: Furosemide 40 MG/4 ML VIAL IV SCH ×2 (09:20→21:37)
[2016-08-22] MEDS: Aspirin Enteric Coated 81 MG Tablet PO SCH (09:20)
[2016-08-22] MEDS: predniSONE 20 MG TABLET PO SCH (09:20)
[2016-08-22] MEDS: Doxycycline 100 MG CAPSULE PO SCH (09:20)
[2016-08-22] MEDS: Acetaminophen 325 MG TABLET PO PRN ×2 (09:22→21:41)
[2016-08-22] MEDS: Sodium Bicarbonate 75 MEQ in 0.45 % Sodium Chloride 1,000 ML IVC SCH (13:10)
[2016-08-22] MEDS: *HR* Rivaroxaban 15 MG TABLET PO SCH (17:06)
[2016-08-23] MEDS: Sodium Bicarbonate 75 MEQ in 0.45 % Sodium Chloride 1,000 ML IVC SCH (02:02)
[2016-08-23] MEDS: Ipratropium/Albuterol Neb 3 ML IH SCH ×3 (03:21→11:40)
[2016-08-23 06:27] LABS: Calcium 8.9 mg/dL (8.6-10.8); Potassium 4.1 mEq/L (3.5-4.5)
[2016-08-23] MEDS ORDERED: predniSONE 20 MG TABLET PO SCH (07:56)
--- NOTE | 2016-08-23 07:59 | Discharge Summary ---
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 possibly from multiple injuries/fall and dehydration Qualifiers: Acute renal failure type: unspecified Qualified Code(s): N17.9 - Acute kidney failure, unspecified (2) Cellulitis Priority: Secondary Status: Acute Comments: Left lower extremity cellulitis received 7 days of doxycycline Qualifiers: Site of cellulitis: extremity Site of cellulitis of extremity: lower extremity Laterality: left Qualified Code(s): L03.116 - Cellulitis of left lower limb (3) Acute hypoxemic respiratory failure Priority: Secondary Status: Acute Comments: Secondary to COPD exacerbation and low volume inspiration due to ribs fractures. CT of the chest showed acute nondisplaced fractures of t4, 6, 7 and 97th ribs, change nodules, mild cardiomegaly, aortic component leaflet calcification, moderately to markedly dilated pulmonary arteries, bronchitis. (4) COPD exacerbation Priority: Secondary Status: Acute (5) Closed head injury Priority: Secondary Status: Acute Comments: Secondary to fall CT scan of the head and C-spine did not show any fractures. CT face showed periorbital and right premolar subcutaneous soft tissue swelling , no fracture. Qualifiers: Encounter type: initial encounter Qualified Code(s): S09.90XA - Unspecified injury of head, initial encounter (6) NSTEMI (non-ST elevated myocardial infarction) Priority: Secondary Status: Acute Comments: Likely secondary to demand ischemia Was evaluated by cardiology ( signed off) Medical management recommended, syncopal episode not cardiac in nature elevated trop: last cath as per record did not show any CAD, could be related to worsening renal function (7) Rhabdomyolysis Priority: Primary Status: Acute Qualifiers: Rhabdomyolysis type: non-traumatic Qualified Code(s): M62.82 - Rhabdomyolysis (8) Atrial fibrillation Priority: Secondary Status: Chronic Comments: Continue metoprolol. Continue Xarelto for primary stroke prevention. held Xarelto due to head trauma at the beginning of his hospitalization Qualifiers: Atrial fibrillation type: chronic Qualified Code(s): I48.2 - Chronic atrial fibrillation - Discharge Medications Prescriptions: Furosemide [Lasix] 20 mg PO DAILY #30 tablet PredniSONE 20 mg PO DAILY 6 Days Home Medications: Aspirin 81 mg PO DAILY 11/01/15 [History] Cholecalciferol (D-3) [Vitamin D] 2,000 unit PO DAILY 11/01/15 [History] Amlodipine [Norvasc] 5 mg PO DAILY #30 tablet 11/02/15 [Rx] Metoprolol [Lopressor] 50 mg PO BID #60 tablet 11/02/15 [Rx] Acetaminophen [Tylenol] 1,000 mg PO BID 08/16/16 [History] Gluc Alvarez/Chondro Alvarez A/Vit C/Mn [Glucosamine Chondroitin Tab] 1 each PO DAILY [History] Levofloxacin 500 mg PO DAILY 08/16/16 [History] Rivaroxaban [Xarelto] 15 mg PO DAILY 08/16/16 [History] Valsartan 160 mg PO DAILY 08/16/16 [History] Furosemide [Lasix] 20 mg PO DAILY #30 tablet 08/23/16 [Rx] PredniSONE 20 mg PO DAILY 6 Days 08/23/16 [Rx] Allergies/Adverse Reactions: Allergies No Known Allergies Allergy (Verified 11/01/15 00:22) Date of admission: 08/17/16 08:08 Primary care physician: Benoit Cosme Jr, MD - Patient Status Disposition: Home, Self-Care Condition: Good Overall status at discharge: patient is progressing back to baseline - Discharge Instructions Follow Up With: Benoit Cosme Jr, MD [Primary Care Provider] - (office will call patient to schedule for an appointment..) Additional Instructions: Follow with primary care physician within the next 7 days. Taper down prednisone. Continue Lasix 20 mg oral daily. Stop Lipitor until following with primary care physician. - Diet and Activity Activity: increase activity as tolerated Diet: low fat, low cholesterol Hospital course: Mr. Mcqueen is a 80 year old male with PMH of atrial fibrillation, CAD, HTN, HLD , and CKD4 who presented after a fall at home. Patient reported that he was at home in his kitchen when he became lightheaded and fell. He reported that he was down for 1-1.5 hours before his family found him. He was unable to get up on his own due to pain and weakness. He hit his face on a small table but denied any loss of consciousness. Reported that for the past 3-4 days he had a nonproductive cough, congestion and nausea. He was seen by his PCP , was diagnosed with bronchitis and pleurisy, and was started on Levaquin. The patient tested negative for influenza A and B. In the ED, his temperature was 100.6, was in atrial fibrillation, rate controlled. Labs revealed a potassium of 5.5, Creatinine 2.74 (previous 1.91), CK 462 ( peaked at >9000) and troponin of 0.52 (previous 0.02). CXR showed enlarged cardiac silhouette and pulmonary vascular congestion. CT c-spine and CT head negative for any acute injuries. CT face showed periorbital and right premolar subcutaneous soft tissue swelling, no fracture. Upon admission, the patient was continued on doxycycline for lower extremity cellulitis could have caused all his dehydration and fall. He has received 7 days of doxycycline and his cellulitis has completely subsided. Unfortunately, his CPK peaked at more than 9,000 for which he was started on IV fluids, he got congested and Lasix had to be started. Due to his acute bronchitis, the patient also developed a mild COPD exacerbation and had to be started on prednisone. The patient was continued on a bicarbonate drip, 2 days prior to his discharge he refused during the night to continue the drip and was off for many hours. His creatinine came down to 2.01 and increased slightly at 2.73, his baseline is closer to 2. The patient was evaluated by the cardiology service, no cardiac catheterization was recommended, last cath as per record did not show any CAD His creatinine kinase has decreased down to 1940. The patient was given the option to stay an additional day but his insisting on being discharged. He was given Lasix 20 mg twice a day, his dose of Lasix will be decreased only to oral 20 mg daily and his prednisone will be reduced to 20 mg daily for 3 days and 10 mg for 3 days and stop. He was told to come back to the emergency room if his condition would worsen. Lipitor was held during his hospitalization The patient will stay until later today to receive some fluids, she was given again the option to stay an additional day but he refused. Risks were explained , including renal failure worsening and Time spent discussing smoking cessation with patient: 3 to 10 minutes - Time Spent with Patient Total time spent providing and/or coordinating discharge services: Greater than 30 minutes (40 min) - Constitutional Vitals: Temp Pulse Resp BP Pulse Ox 97.7 F 89 16 157/95 92 L 03/03/17 07:04 08/23/16 07:04 08/23/16 07:04 08/23/16 07:04 08/23/16 07:04 General appearance: Present: cooperative, A&O X 3, pleasant, no acute distress, answers questions appropriately - Head Head exam: Present: atraumatic, normocephalic - Eye Eye exam: Present: PERRL, conjuntiva pink, sclera anicteric Pupils: Present: PERRL - Neck Neck exam general surgery: Present: supple, trachea midline. Absent: lymphadenopathy - Respiratory Respiratory exam: Present: decreased breath sounds, CTAB, rales (Fine bibasilar crackles have improved considerably). Absent: accessory muscle use, rhonchi, wheezes - Cardiovascular Cardiovascular exam: Present: RRR, +S1, +S2. Absent: diastolic murmur, gallop, rubs, systolic murmur - GI/Abdominal GI/Abdominal exam: Present: normal bowel sounds, soft, no peritoneal signs. Absent: distended, tenderness - Extremities Exam Extremities exam: Present: warm, radial pulses palpable and symetrical. Absent : calf tenderness, cyanotic, pedal edema - Neurological Exam Neurological exam: Present: CN II-XII intact, oriented X3, no focal deficits. Absent: pronater drift, facial droop, speech deficit - Skin Skin exam: Present: dry. Absent: intact (Multiple facial excoriations, and multiple lower extremity excoriations, erythema has subsided)
[2016-08-23] MEDS ORDERED: Furosemide 20 MG TABLET PO SCH (09:00)
[2016-08-23] MEDS: Aspirin Enteric Coated 81 MG Tablet PO SCH (10:17)
[2016-08-23] MEDS: Acetaminophen 325 MG TABLET PO PRN (10:17)
[2016-08-23 11:02] VITALS: BP 154/91
== END 2016-08-23 13:30 | disposition home or self-care (01) | DRG 280 ==
LOC: EMEROO 19:32 → 2ANU 19:32 → SUATTDRO 08-17 08:08 → 2ANU 08-18 07:49
PROVIDERS: ADMIT Pediatrics; ATTEND Internal Medicine

== ENCOUNTER 2017-03-17 14:42 | Inpatient (IN) ==
[2017-03-17 15:49] LABS: Basophils # 0.1 K/mcL (0.0-0.2); Basophils % 0.5 %; Eosinophils # 0.8 K/mcL (0.0-0.6); Eosinophils % 7.7 %; Hematocrit 28.3 % (37.5-50.1); Hemoglobin 8.4 g/dL (12.9-16.9); Immature Granulocytes % 0.3 % (0-4); Lymphocytes # 1.2 K/mcL (0.6-4.6); Lymphocytes % 11.6 %; Mean Corpuscular HGB Conc 29.7 g/dL (31.6-35.5); Mean Corpuscular Hemoglobin 28.4 pg (28.0-33.3); Mean Corpuscular Volume 95.6 fL (83.0-100.0); Mean Platelet Volume 11.5 fL (9.4-12.4); Monocytes # 0.6 K/mcL (0.0-1.3); Monocytes % 5.6 %; Neutrophils # 7.4 K/mcL (1.6-8.9); Platelet Count 162 K/mcL (140-400); Red Blood Count 2.96 M/mcL (4.19-5.50); Red Cell Distribution Width 15.7 % (11.5-14.5); Segmented Neutrophils % 74.3 %
[2017-03-17 15:59] LABS: Calcium 9.2 mg/dL (8.6-10.8); Potassium 4.7 mEq/L (3.5-4.5)
[2017-03-17 16:43] LABS: Thyroid Stimulating Hormone 1.999 mcIU/mL (0.350-4.840)
[2017-03-17] MEDS ORDERED: Nitroglycerin 1 INCH/GM PACKET TP ONE (16:49)
[2017-03-17] MEDS ORDERED: Ipratropium/Albuterol Neb 3 ML IH ONE (16:49)
--- NOTE | 2017-03-17 17:02 | Emergency Department Note ---
Disposition Clinical Impression: Acute exacerbation of CHF (congestive heart failure) Qualifiers: Congestive heart failure type: systolic Qualified Code(s): I50.23 - Acute on chronic systolic (congestive) heart failure [id number] kidney injury Qualifiers: Acute renal failure type: unspecified Chronic kidney disease stage: stage 3 ( moderate) Qualified Code(s): N17.9 - Acute kidney failure, unspecified Traumatic open wound of lower leg Qualifiers: Encounter type: sequela Laterality: right Qualified Code(s): S81.801S - Unspecified open wound, right lower leg, sequela Disposition: Admitted As Inpatient Condition: Undetermined Time of Disposition: 17:32 SOB HPI - General Chief Complaint: ED Shortness of Breath/Dyspnea Stated Complaint: CHF Time Seen by Provider: 03/17/17 16:32 Source: patient Mode of arrival: wheelchair Limitations: no limitations Nursing Notes Reviewed: Yes Vital Signs Reviewed: Yes - History of Present Illness 81-year-old male with history of chronic ulcer and right lower extremity as well as CHF arrives [facility] emergency department complaining of increased shortness of breath that is exertional, and I lateral lower extremity swelling. The patient denies any chest pain associated with this. The patient states he went into wound clinic earlier today for evaluation and rewrapping of his wound and they noted that the patient was very short of breath after ambulating as well as experiencing bilateral lower extremity swelling is starting to become painful. The patient was sent into the emergency department for workup and evaluation. The patient states this is been ongoing for quite some time but has acutely worsened over the past week. The patient continues to deny any active chest pain at this time. He is resting comfortably without any difficulty breathing but states that as soon as he relates he becomes very short of breath. 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 Context: occurred during exertion Severity: mild, moderate Consistency/Duration: now resolved Improves with: rest Worsens with: exertion Known history of: congestive heart failure Treatment prior to arrival: none Cough present: No Sputum production: No - Related Data Home oxygen amount: none Home Medications Medication Instructions Recorded Confirmed Aspirin 81 mg PO DAILY 11/01/15 03/17/17 Cholecalciferol (D-3) [Vitamin D] 2,000 unit PO DAILY 11/01/15 03/17/17 Acetaminophen [Tylenol] 1,000 mg PO BID 08/16/16 03/17/17 Gluc Alvarez/Chondro Alvarez A/Vit C/Mn 1 each PO DAILY 08/16/16 03/17/17 [Glucosamine Chondroitin Tab] Rivaroxaban [Xarelto] 15 mg PO DAILY 08/16/16 03/17/17 Albuterol Sulfate [Proair Hfa] 2 puff IH Q4H PRN 03/17/17 03/17/17 Atorvastatin [Lipitor] 40 mg PO HS 03/17/17 03/17/17 Furosemide [Lasix] 40 mg PO DAILY 03/17/17 03/17/17 amLODIPine [Norvasc] 5 mg PO BID 03/17/17 03/17/17 Previous Rx's Medication Instructions Recorded Metoprolol [Lopressor] 50 mg PO BID #60 tablet 11/02/15 Allergies Allergy/AdvReac Type Severity Reaction Status Date / Time No Known Allergies Allergy Verified 11/01/15 00:22 All systems ED: reviewed and negative except as stated. Constitutional: Denies: fever, chills, weakness, weight change ENT ED: Denies: ear pain, throat pain, dental pain, hearing loss, epistaxis, congestion, dysphagia Cardiovascular: Reports: dyspnea on exertion, edema. Denies: chest pain, palpitations, syncope Respiratory: Denies: cough, dyspnea, wheezes, hemoptysis, stridor Gastrointestinal: Denies: abdominal pain, nausea, vomiting, diarrhea, constipation, hematemesis, melena, hematochezia Musculoskeletal: Denies: back pain, neck pain, arthralgia, myalgia Integumentary: Denies: rash, abrasion, lesions Past Medical History - Past Medical History Attestation: Yes The following information was validated with the patient. Source: patient Medical history: Reports: atrial fibrillation, coronary artery disease, hyperlipidemia, hypertension, renal disease, other Surgical history: Reports: orthopedic, other, other Psychiatric history: Reports: no psych history - Social History Smoking Status: Current every day smoker Smokeless Tobacco Status: No Alcohol use: Reports: occasionally Drug use: Reports: none Physical Exam - General Limitations: no limitations General appearance: alert, in no apparent distress - Head Head exam: atraumatic, normocephalic, normal inspection - ENT ENT exam: normal exam, normal oropharynx, mucous membranes moist - Neck Neck exam: Present: normal inspection, full ROM, trachea midline - Chest Chest inspection: Present: normal inspection, symmetric chest wall rise - Expanded Respiratory Exam Location: wheezes: Left, Right, Upper, Lower, rales: Left, Right, Lower - Cardiovascular Cardiovascular exam: Present: regular rate, normal rhythm, normal heart sounds - Abdominal Exam Abdominal exam: Present: soft, Non-Tender - Extremities Exam Extremities exam: Present: full ROM, tenderness (Bilateral thighs and lower extremities associated with edema), pedal edema (2+ pitting edema bilateral lower extremities) Course Vital Signs Temperature 97.8 F 03/17/17 14:49 Pulse Rate 60 03/17/17 14:49 Respiratory Rate 18 03/17/17 14:49 Blood Pressure 134/73 03/17/17 14:49 O2 Sat by Pulse Oximetry 95 03/17/17 14:49 Temperature 97.4 F L 03/18/17 16:00 Pulse Rate 61 03/18/17 16:00 Respiratory Rate 18 03/18/17 16:33 Blood Pressure 127/65 03/18/17 16:00 O2 Sat by Pulse Oximetry 95 03/18/17 16:33 Oxygen Delivery Oxygen Delivery Room Air Shortness of Breath/Dyspnea - MDM Narrative Medical decision making narrative: Patient has findings consistent with CHF exacerbation. The patient has rails on bilateral lower lobe auscultation and stable CHF findings on chest x-ray. The patient currently takes Lasix at home but appears to have an AK I that appears on chronic kidney disease. The patient's kidney injury appears worse than his baseline. We do not feel comfortable sending the patient home at this time with just an increase in his Lasix given the patient's acute on chronic kidney injury. The patient was given transdermal nitroglycerin which helped relieved some of his dyspnea. The patient is resting comfortably at this time. We had an extensive discussion with the patient about further care and concern about the patient's CHF. We will admit the patient at this time. Accepted by Dr. Martinez. - Lab Data Lab results reviewed: Yes I reviewed the patient's lab results. Result diagrams: 03/18/17 04:48 03/18/17 04:48 Lab Results 03/17/17 03/17/17 03/17/17 Range/Units 15:41 15:41 15:41 WBC 10.0 (4.3-11.1) K/mcL RBC 2.96 L (4.19-5.50) M/mcL Hgb 8.4 L (12.9-16.9) g/dL Hct 28.3 L (37.5-50.1) % MCV 95.6 (83.0-100.0) fL MCH 28.4 (28.0-33.3) pg MCHC 29.7 L (31.6-35.5) g/dL RDW 15.7 H (11.5-14.5) % Plt Count 162 (140-400) K/mcL MPV 11.5 (9.4-12.4) fL Immature Gran % 0.3 (0-4) % Seg Neutrophils % 74.3 % Lymphocytes % 11.6 % Monocytes % 5.6 % Eosinophils % 7.7 % Basophils % 0.5 % Neutrophils # 7.4 (1.6-8.9) K/mcL Lymphocytes # 1.2 (0.6-4.6) K/mcL Monocytes # 0.6 (0.0-1.3) K/mcL Eosinophils # 0.8 H (0.0-0.6) K/mcL Basophils # 0.1 (0.0-0.2) K/mcL Sodium 138 (136-145) mEq/L Potassium 4.7 H (3.5-4.5) mEq/L Chloride 109 (98-109) mEq/L Carbon Dioxide 16 L (19-29) mEq/L BUN 85 H (8-26) mg/dL Creatinine 3.89 H (0.72-1.25) mg/dL Est GFR ( Amer) 18 L (> 60) Est GFR (Non-Af Amer) 15 L (> 60) BUN/Creatinine Ratio 22 (6-26) Glucose 118 H (70-99) mg/dL Calculated Osmolality 313 H (280-300) Lactic Acid 1.2 (0.5-2.2) mmol/L Calcium 9.2 (8.6-10.8) mg/dL Troponin I (0-0.03) ng/mL B-Natriuretic Peptide (0-100) pg/mL TSH 1.999 (0.350-4.840) mcIU/mL 03/17/17 03/17/17 Range/Units 15:41 15:41 WBC (4.3-11.1) K/mcL RBC (4.19-5.50) M/mcL Hgb (12.9-16.9) g/dL Hct (37.5-50.1) % MCV (83.0-100.0) fL MCH (28.0-33.3) pg MCHC (31.6-35.5) g/dL RDW (11.5-14.5) % Plt Count (140-400) K/mcL MPV (9.4-12.4) fL Immature Gran % (0-4) % Seg Neutrophils % % Lymphocytes % % Monocytes % % Eosinophils % % Basophils % % Neutrophils # (1.6-8.9) K/mcL Lymphocytes # (0.6-4.6) K/mcL Monocytes # (0.0-1.3) K/mcL Eosinophils # (0.0-0.6) K/mcL Basophils # (0.0-0.2) K/mcL Sodium (136-145) mEq/L Potassium (3.5-4.5) mEq/L Chloride (98-109) mEq/L Carbon Dioxide (19-29) mEq/L BUN (8-26) mg/dL Creatinine (0.72-1.25) mg/dL Est GFR ( Amer) (> 60) Est GFR (Non-Af Amer) (> 60) BUN/Creatinine Ratio (6-26) Glucose (70-99) mg/dL Calculated Osmolality (280-300) Lactic Acid (0.5-2.2) mmol/L Calcium (8.6-10.8) mg/dL Troponin I 0.01 (0-0.03) ng/mL B-Natriuretic Peptide 375 H (0-100) pg/mL TSH (0.350-4.840) mcIU/mL - Radiology Data Radiology results reviewed: Yes I reviewed the patient's radiology results. - EKG Data EKG attestation: Yes I reviewed and interpreted this EKG. EKG results narrative: Heart rate 63 bpm. QTc 4:30 milliseconds. Normal axis. Atrial fibrillation area and right bundle-branch block. No ST elevation but mild ST depression noted in leads V4 and V5. Similar appearance overall with mild nonspecific changes noted from EKG from 08/17/2016. Attestation Statement - Attestation Attestation: I, Jeremiah Menendez, examined this patient and my medical decision-making was reviewed with the [employer]/PA/Advanced Practice Nurse/Resident Physician. I agree with the documented findings, disposition and treatment plan as described except to the extent set forth below. 81-year-old male presents with concerns of increased shortness of breath and bilateral lower show any swelling. Patient has a history of congestive heart failure and is dyspneic with minimal exertion. On physical exam bilateral lower extremities are edematous. Laboratory evaluation the patient has acute renal insufficiency and he is anemic.. Patient will be admitted to the hospital for further care and evaluation.
[2017-03-17] MEDS ORDERED: Naloxone 0.4 MG/ML INJ IVP PRN (20:16)
--- NOTE | 2017-03-17 20:25 | Internal Med History&Physical ---
<Yasmani Oconnor J - Last Filed: 03/17/17 21:15> Date of Encounter: 03/17/17 Time of Encounter: 20:22 Assessment and Plan (1) Acute exacerbation of CHF (congestive heart failure) Current visit: Yes Status: Acute H/O diastolic dysfunction, echo in 2017 shows EF 55-60%. Interstitial pulmonary edema, dyspnea on exertion, increased BLE swelling, continue diuresis. Complete cardiac w/u to r/o coronary event. Will not consult cardio at this time. Patient remains hemodynamically stable and is resting comfortably on RA. trend troponins echocardiogram Lasix 40mg IVP daily Qualifiers: Congestive heart failure type: systolic Qualified Code(s): I50.23 - Acute on chronic systolic (congestive) heart failure (2) Pulmonary edema Current visit: Yes Status: Acute see above Qualifiers: Chronicity: acute Qualified Code(s): J81.0 - Acute pulmonary edema (3) [id number] kidney injury Current visit: Yes Status: Acute SAMANTHA in the setting of chronic kidney disease stage III. Follows LILIAN Toure for renal failure. Consulting Nephrology for management of worsening renal function (Dr. Dozier consulted, days team to call), especially in the setting of CHF and the need for further diuresis with lasix. Continue to monitor renal function, CMP in am. Qualifiers: Acute renal failure type: unspecified Chronic kidney disease stage: stage 3 (moderate) Qualified Code(s): N17.9 - Acute kidney failure, unspecified; N18.3 - Chronic kidney disease, stage 3 (moderate) (4) Anemia Current visit: Yes Status: Acute likely d/t CKD III, I suspect that this is contributing to his dyspnea. Will continue xarelto for now d/t history of a-fib, no gross bleeding noted upon exam , denies any hematemesis or hematochezia. CBC in am, Iron profile. 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 (7) DVT prophylaxis Current visit: Yes Status: Acute on xarelto d/t a-fib. Continue Internal Medicine - H&P: HPI Chief complaint: dyspnea on exertion, r/o acute on chronic exac of CHF, SAMANTHA, Admitted From: Home Plans for Post Hospital Care: Home History of present illness: Mr. Mcqueen is a 81 year old male with a PMH of A-fib, CAD, HLD, HTN, and CKD III presents today with a 3 day h/o increasing dyspnea on exertion and BLE swelling. Was at wound clinic today for a check up of chronic Rt leg wound and the physician was concerned for his symptoms and sent him to the ED for admission. Denies any weight gain, or chest pain. Workup in ED reveals negative EKG without st changes, BNP 375,and negative trop. CXR show chronic interstitial pulmonary edema. Echo 07/2016 show EF 55-65%. He is additionally noted to have chronic anemia, however his H&H is decreased from baseline. He is being admitted for further workup and monitoring of worsening renal function, anemia and an acute on chronic exacerbation of CHF. Past Med Surg Social Fam HX - Past Medical History Medical history: atrial fibrillation, coronary artery disease, hyperlipidemia, hypertension, renal disease, other Psychiatric history: no psych history - Past Surgical History Surgical History: orthopedic, other, other - Social History Smoking Status: Current every day smoker Packs per day: <1 Smokeless Tobacco Status: No Alcohol use: occasionally Drug use: none - Family History Father Family Member Ethnicity: Non- Living Status: Hx Family Cardiac Disorders: Yes Hx Family Respiratory Disorders: No Hx Family Cancer: No Hx Family GI Disorders: No Hx Family Endocrine Disorder: No Hx Family Neuromuscular Disorders: No Hx Family Neurologic Disorders: No Hx Family HEENT Disorders: No Hx Family Autoimmune Disorders: No Son Hx Family Cardiac Disorders: Yes Internal Medicine - H&P: Meds Aspirin 81 mg PO DAILY 11/01/15 [History] Cholecalciferol (D-3) [Vitamin D] 2,000 unit PO DAILY 11/01/15 [History] Metoprolol [Lopressor] 50 mg PO BID #60 tablet 11/02/15 [Rx] Acetaminophen [Tylenol] 1,000 mg PO BID 08/16/16 [History] Gluc Alvarez/Chondro Alvarez A/Vit C/Mn [Glucosamine Chondroitin Tab] 1 each PO DAILY [History] Rivaroxaban [Xarelto] 15 mg PO DAILY 08/16/16 [History] Albuterol Sulfate [Proair Hfa] 2 puff IH Q4H PRN 03/17/17 [History] Atorvastatin [Lipitor] 40 mg PO HS 03/17/17 [History] Furosemide [Lasix] 40 mg PO DAILY 03/17/17 [History] amLODIPine [Norvasc] 5 mg PO BID 03/17/17 [History] 3 Allergy/AdvReac Type Severity Reaction Status Date / Time No Known Allergies Allergy Verified 11/01/15 00:22 All Systems PM: A 10-system review of systems was performed and is negative for pertinent findings except as documented above in the HPI. - Constitutional Constitutional: fatigue, weakness, no chills, no fever(s), no night sweats, no weight gain - EENT Eyes: no change in vision, no discharge, no pain, no photophobia Ears: no ear discharge, no ear pain, no tinnitus Nose, mouth and throat: no dysphagia, no nasal discharge, no neck pain, no sore throat - Cardiovascular Cardiovascular ROS IM: dyspnea on exertion, edema, no chest pain, no claudication, no diaphoresis, no dyspnea, no irregular heart rhythm, no lightheadedness, no palpitations, no syncope - Respiratory Respiratory: as per HPI, dyspnea on exertion, no cough, no dyspnea, no wheezing , no chest congestion, no excessive phlegm production - Gastrointestinal Gastrointestinal: no abdominal pain, no diarrhea, no hematemesis, no hematochezia, no melena, no nausea, no vomiting - Musculoskeletal Musculoskeletal ROS IM: no numbness, no tingling - Integumentary Integumentary IM: no rash, no unusual bruising - Neurological Neurological ROS: no confusion, no convulsions, no focal weakness, no numbness, no tingling, no tremor(s) - Hematologic/Lymphatic Hematologic/Lymphatic: no easy bruising - Constitutional Vitals: Temp Pulse Resp BP Pulse Ox 98.3 F 82 18 138/68 97 03/17/17 18:45 03/17/17 18:45 03/17/17 18:45 03/17/17 18:45 03/17/17 18:45 General appearance: Present: cooperative, A&O X 3, no acute distress, answers questions appropriately - Head Head exam: Present: atraumatic, normocephalic - Eye Eye exam: Present: EOMI, PERRL, conjuntiva pink, sclera anicteric Pupils: Present: PERRL - Neck Neck exam general surgery: Present: supple, trachea midline. Absent: lymphadenopathy - Respiratory Respiratory exam: Present: CTAB. Absent: accessory muscle use, rales, rhonchi, wheezes - Cardiovascular Cardiovascular exam: Present: RRR, +S1, +S2. Absent: diastolic murmur, gallop, rubs, systolic murmur - GI/Abdominal GI/Abdominal exam: Present: normal bowel sounds, soft, no peritoneal signs. Absent: distended, tenderness - Extremities Exam Extremities exam: Present: warm, radial pulses palpable and symmetrical. Absent : calf tenderness, cyanotic, pedal edema - Expanded Lower Extremities Exam Lower Leg exam: Present: swelling (RLE ) Ankle exam: Present: swelling - Neurological Exam Neurological exam: Present: CN II-XII intact, oriented X3, no focal deficits. Absent: pronater drift, facial droop, speech deficit - Skin Skin exam: Present: dry, intact Internal Med - H&P Results - Labs CBC & Chem 7: 03/17/17 15:41 03/17/17 15:41 - EKG Data When compared to previous EKG: there is no significant change - Diagnostic Studies Chest x-ray Additional comments: Interstitial pulmonary edema <Marry Ordoñez - Last Filed: 03/18/17 00:57> Date of Encounter: 03/18/17 Time of Encounter: 00:50 Internal Medicine - H&P: HPI History of present illness: Mr. Mcqueen is a 81 year old male All Systems PM: A 10-system review of systems was performed and is negative for pertinent findings except as documented above in the HPI. - Constitutional Vitals: Temp Pulse Resp BP Pulse Ox 97.6 F 67 18 127/63 92 03/18/17 00:05 03/18/17 00:05 03/18/17 00:05 03/18/17 00:05 03/18/17 00:05 Internal Med - H&P Results - Labs CBC & Chem 7: 03/17/17 15:41 03/17/17 15:41 Labs: Cardiac Enzymes 03/17/17 Range/Units 21:43 Troponin I 0.01 (0-0.03) ng/mL - Attending Attestation Patient independently seen and examined at bedside. Admitted for acute respiratory distress secondary to CHF decompensation Started on IV diuresis. O2 supplementation as needed. Fluid restriction diet. Monitor I/Os, daily weights consider cardiology evaluation if symptoms persist despite diuresis therapy O2 supplementation as needed SAMANTHA on CKD, nephro consultation requested. Will continue IV diuresis given acute CHF decompensation Continue home medications Case discussed with LILIAN Oconnor, I agree with his documented findings, assessment, and plan except as listed above.
[2017-03-17] MEDS: Acetaminophen 325 MG TABLET PO PRN (21:50)
[2017-03-18] MEDS ORDERED: Furosemide 40 MG/4 ML VIAL IVP ONE (00:43)
[2017-03-18] MEDS: Menthol 9.1 MG LOZENGE PO PRN ×3 (02:01→23:43)
[2017-03-18 05:40] LABS: Basophils % 0.4 %; Eosinophils # 0.8 K/mcL (0.0-0.6); Hemoglobin 7.8 g/dL (12.9-16.9); Immature Granulocytes % 0.4 % (0-4); Lymphocytes # 1.2 K/mcL (0.6-4.6); Lymphocytes % 12.1 %; Mean Corpuscular Hemoglobin 27.9 pg (28.0-33.3); Mean Corpuscular Volume 92.9 fL (83.0-100.0); Mean Platelet Volume 11.6 fL (9.4-12.4); Monocytes # 0.8 K/mcL (0.0-1.3); Monocytes % 8.4 %; Neutrophils # 6.9 K/mcL (1.6-8.9); Platelet Count 160 K/mcL (140-400); Red Cell Distribution Width 15.7 % (11.5-14.5); Segmented Neutrophils % 70.7 %
[2017-03-18 05:54] LABS: % Iron Saturation 5 % (20-55); Iron 19 mcg/dL (65-175); Transferrin 280 mg/dL (174-364)
[2017-03-18 05:57] LABS: Albumin 3.5 g/dL (3.5-5.0); Albumin/Globulin Ratio 0.9 (1.1-2.2); Bilirubin,Total 0.7 mg/dL (0.2-1.2); Calcium 9.3 mg/dL (8.6-10.8); Globulin 4.1 g/dL (2.4-3.5); Potassium 4.4 mEq/L (3.5-4.5); Total Protein 7.6 g/dL (6.0-8.3)
--- NOTE | 2017-03-18 08:35 | Nephrology Consult Note ---
Date of Encounter: 03/18/17 Time of Encounter: 08:20 Assessment and Plan (1) SAMANTHA (acute kidney injury) Current Visit: No Status: Ruled-out SAMANTHA superimposed on CKD 4 in setting acute on chronic CHF, with interstitial pulmonary edema and diuresis. Baseline creat 2.0-2.7. I&O, avoid nephrotoxins. Will continue to monitor. History of Present Illness - Reason for Consult Acute Kidney Injury - History of Present Illness Mr. Mcqueen is a 81 year old male, known to practice with CKD 4 in setting of hypertension, baseline creat 2.0-2.7. Last seen in office January 13, creat 2.57 at that time. Other PMH- CHF, atrial fibrillation, coronary artery disease, hyperlipidemia, hypertension. Mr. Mcqueen states he was at wound clinic yesterday and was noted to be more short of breath with ambulation and has had increased LE swelling. He was sent to ER from wound clinic. CXR shows chronic interstitial pulmonary edema. Given Lasix 40mg IV. At time of consult, sitting up in chair eating breakfast. Denies SOB, states breathing greatly improved. Past Med Surg Social Fam HX - Past Medical History Medical history: atrial fibrillation, coronary artery disease, hyperlipidemia, hypertension, renal disease, other Psychiatric history: no psych history - Past Surgical History Surgical History: orthopedic, other, other - Social History Smoking Status: Current every day smoker Packs per day: <1 Smokeless Tobacco Status: No Alcohol use: occasionally Drug use: none - Family History Father Family Member Ethnicity: Non- Living Status: Hx Family Cardiac Disorders: Yes Hx Family Respiratory Disorders: No Hx Family Cancer: No Hx Family GI Disorders: No Hx Family Endocrine Disorder: No Hx Family Neuromuscular Disorders: No Hx Family Neurologic Disorders: No Hx Family HEENT Disorders: No Hx Family Autoimmune Disorders: No Son Hx Family Cardiac Disorders: Yes Medications and Allergies Aspirin 81 mg PO DAILY 11/01/15 [History] Cholecalciferol (D-3) [Vitamin D] 2,000 unit PO DAILY 11/01/15 [History] Metoprolol [Lopressor] 50 mg PO BID #60 tablet 11/02/15 [Rx] Acetaminophen [Tylenol] 1,000 mg PO BID 08/16/16 [History] Gluc Alvarez/Chondro Alvarez A/Vit C/Mn [Glucosamine Chondroitin Tab] 1 each PO DAILY [History] Rivaroxaban [Xarelto] 15 mg PO DAILY 08/16/16 [History] Albuterol Sulfate [Proair Hfa] 2 puff IH Q4H PRN 03/17/17 [History] Atorvastatin [Lipitor] 40 mg PO HS 03/17/17 [History] Furosemide [Lasix] 40 mg PO DAILY 03/17/17 [History] amLODIPine [Norvasc] 5 mg PO BID 03/17/17 [History] 3 Allergy/AdvReac Type Severity Reaction Status Date / Time No Known Allergies Allergy Verified 11/01/15 00:22 Review of Systems All Systems: reviewed and no additional remarkable complaints except as stated Exam - Vital Signs Vital signs: Initial Vital Signs Temp Pulse Resp BP Pulse Ox 97.8 F 60 18 134/73 95 03/17/17 14:49 03/17/17 14:49 03/17/17 14:49 03/17/17 14:49 03/17/17 14:49 Vital Signs - Last 8 Hours Temp Pulse Resp BP Pulse Ox 03/18/17 08:22 98.4 F 68 20 135/67 98 03/18/17 03:11 98.5 F 72 17 132/77 94 Intake and Output 03/17/17 03/18/17 03/18/17 23:59 07:59 15:59 Intake Total 0 / 0 Output Total 400 / 400 1175 / 1175 Balance -400 / -400 -1175 / -1175 Intake: Oral 0 / 0 Output: Urine 400 / 400 1175 / 1175 Other: # Voids 1 Weight 231.2 kg - General Appearance General appearance: well-developed, well-nourished, appears started age EENT: mucous membranes moist Neck: no JVD Respiratory: rales, rhonchi Cardiology: edema, regular rate, regular rhythm Additional Comments: Mild-1+ pitting, dressing to right LE-moderate amount serous drainage. Gastrointestinal: normoactive bowel sounds, no tenderness Integumentary: warm and dry Psychiatric: mood/affect appropriate, cooperative Results - Lab Results 03/18/17 04:48 03/18/17 04:48 Most recent lab results Calcium 9.3 mg/dL (8.6-10.8) 03/18/17 04:48 Consult Discharge Plan - Plan Referrals: Benoit Cosme Jr, MD [Primary Care Provider] -
[2017-03-18] MEDS: Aspirin 81 MG TAB.CHEW PO SCH (09:00)
[2017-03-18] MEDS: amLODIPine 5 MG TABLET PO SCH (09:00)
[2017-03-18] MEDS ORDERED: amLODIPine 5 MG TABLET PO SCH (09:00)
[2017-03-18] MEDS ORDERED: GLUCOSAMINE PO SCH (09:00)
[2017-03-18] MEDS: Furosemide 40 MG/4 ML VIAL IVP SCH (09:00)
[2017-03-18] MEDS: Cholecalciferol (D-3) 1,000 UNIT TABLET PO SCH (09:00)
[2017-03-18] MEDS: *HR* Rivaroxaban 15 MG TABLET PO SCH (09:00)
[2017-03-18] MEDS: Acetaminophen 325 MG TABLET PO PRN ×2 (09:06→22:24)
--- NOTE | 2017-03-18 11:44 | Internal Med Progress Note ---
Date of Encounter: 03/18/17 Time of Encounter: 11:42 - Assessment and plan (1) COPD with acute exacerbation Current Visit: Yes Status: Acute (2) Acute exacerbation of CHF (congestive heart failure) Current Visit: Yes Status: Acute Qualifiers: Congestive heart failure type: systolic Qualified Code(s): I50.23 - Acute on chronic systolic (congestive) heart failure (3) Atrial fibrillation Current Visit: Yes Status: Chronic Qualifiers: Atrial fibrillation type: chronic Qualified Code(s): I48.2 - Chronic atrial fibrillation (4) Acute renal failure superimposed on stage 3 chronic kidney disease Current Visit: Yes Status: Acute Qualifiers: Acute renal failure type: unspecified Qualified Code(s): N17.9 - Acute kidney failure, unspecified; N18.3 - Chronic kidney disease, stage 3 (moderate) (5) Hypertension Current Visit: Yes Status: Acute Qualifiers: Hypertension type: essential hypertension Qualified Code(s): I10 - Essential (primary) hypertension - Subjective Interval history: HX: Mr. Mcqueen is a 81 year old male with a PMH of A-fib, CAD, HLD, HTN, and CKD III presents today with a 3 day h/o increasing dyspnea on exertion and BLE swelling. Was at wound clinic today for a check up of chronic Rt leg wound and the physician was concerned for his symptoms and sent him to the ED for admission. Denies any weight gain, or chest pain. Workup in ED reveals negative EKG without st changes, BNP 375,and negative trop. CXR show chronic interstitial pulmonary edema. Echo 07/2016 show EF 55-65%. He is additionally noted to have chronic anemia, however his H&H is decreased from baseline. He is being admitted for further workup and monitoring of worsening renal function, anemia and an acute on chronic exacerbation of CHF. Patient seen today and discuss her PCR. Labs reviewed. CBC magnesium phosphate potassium ordered. Continue diuresing while watching renal function. Nephrology on the case. Patient chest examination showed diffuse rhonchi with rales and wheezing. At due her meds and IV Solu-Medrol - Constitutional Vitals: Temp Pulse Resp BP Pulse Ox 97.3 F L 60 18 119/68 96 03/18/17 11:37 03/18/17 11:37 03/18/17 11:37 03/18/17 11:37 03/18/17 11:37 General appearance: Present: cooperative, A&O X 3, no acute distress, answers questions appropriately - Head Head exam: Present: atraumatic, normocephalic - Eye Eye exam: Present: PERRL, conjuntiva pink, sclera anicteric Pupils: Present: PERRL - Neck Neck exam general surgery: Present: supple, trachea midline. Absent: lymphadenopathy - Respiratory Respiratory exam: Present: rhonchi, wheezes. Absent: accessory muscle use, rales - Cardiovascular Cardiovascular exam: Present: RRR, +S1, +S2. Absent: diastolic murmur, gallop, rubs, systolic murmur - GI/Abdominal GI/Abdominal exam: Present: normal bowel sounds, soft, no peritoneal signs. Absent: distended, tenderness - Extremities Exam Extremities exam: Present: warm, radial pulses palpable and symmetrical. Absent : calf tenderness, cyanotic, pedal edema - Neurological Exam Neurological exam: Present: CN II-XII intact, oriented X3, no focal deficits. Absent: pronater drift, facial droop, speech deficit - Skin Skin exam: Present: dry, intact Internal Medicine: Result - Labs CBC & Chem 7: 03/18/17 04:48 03/18/17 04:48 Labs: Short CBC 03/18/17 Range/Units 04:48 WBC 9.7 (4.3-11.1) K/mcL Hgb 7.8 L (12.9-16.9) g/dL Hct 26.0 L (37.5-50.1) % Plt Count 160 (140-400) K/mcL Neutrophils # 6.9 (1.6-8.9) K/mcL BMP 03/18/17 04:48 Sodium 140 Potassium 4.4 Chloride 109 Carbon Dioxide 18 L BUN 86 H Creatinine 3.76 H Glucose 102 H Calcium 9.3 Cardiac Enzymes 03/17/17 03/18/17 Range/Units 21:43 04:48 Troponin I 0.01 0.04 H* (0-0.03) ng/mL Liver Function 03/18/17 Range/Units 04:48 Total Bilirubin 0.7 (0.2-1.2) mg/dL AST 11 (5-34) Units/L ALT 10 (0-55) Units/L Alkaline Phosphatase 92 (38-126) Units/L Albumin 3.5 (3.5-5.0) g/dL Consult Discharge Plan - Plan Referrals: Benoit Cosme Jr, MD [Primary Care Provider] -
[2017-03-18] MEDS: Ipratropium/Albuterol Neb 3 ML IH SCH ×2 (16:33→23:23)
[2017-03-18] MEDS: methylPREDNISolone 125 MG/2 ML VIAL IVP SCH ×2 (16:40→23:40)
--- NOTE | 2017-03-18 19:11 | Electrocardiograph Report ---
[address] [address] Test Date: 2017-03-17 Pat Name: George Mcqueen Department: 104 Room: 2A Gender: M Deicer Tester: : 1935 Requested By: Jeremiah Menendez Order Number: [id number] Reading MD: Emily Chavez Measurements Intervals [place] Rate: 63 P: MT: 0 QRS: 16 QRSD: 142 T: -6 QT: 431 QTc: 438 Interpretive Statements ATRIAL FIBRILLATION RIGHT BUNDLE BRANCH BLOCK Electronically Signed On 03-18-2017 19:09:52 EDT by Emily Chavez
[2017-03-19] MEDS: Ipratropium/Albuterol Neb 3 ML IH SCH ×3 (03:58→15:49)
[2017-03-19 06:18] LABS: Basophils % 0.1 %; Hematocrit 27.3 % (37.5-50.1); Hemoglobin 8.2 g/dL (12.9-16.9); Immature Granulocytes % 0.4 % (0-4); Lymphocytes # 0.5 K/mcL (0.6-4.6); Lymphocytes % 6.2 %; Mean Corpuscular Volume 93.2 fL (83.0-100.0); Mean Platelet Volume 11.4 fL (9.4-12.4); Monocytes % 0.4 %; Neutrophils # 6.9 K/mcL (1.6-8.9); Platelet Count 169 K/mcL (140-400); Red Blood Count 2.93 M/mcL (4.19-5.50); Red Cell Distribution Width 15.8 % (11.5-14.5); Segmented Neutrophils % 92.9 %
[2017-03-19 06:29] LABS: Albumin 3.7 g/dL (3.5-5.0); Albumin/Globulin Ratio 0.9 (1.1-2.2); Bilirubin,Total 0.6 mg/dL (0.2-1.2); Calcium 9.5 mg/dL (8.6-10.8); Globulin 4.3 g/dL (2.4-3.5); Magnesium 2.2 mg/dL (1.6-2.6); Potassium 4.2 mEq/L (3.5-4.5)
[2017-03-19] MEDS: Cholecalciferol (D-3) 1,000 UNIT TABLET PO SCH (09:30)
[2017-03-19] MEDS: Aspirin 81 MG TAB.CHEW PO SCH (09:30)
[2017-03-19] MEDS: methylPREDNISolone 125 MG/2 ML VIAL IVP SCH (09:31)
[2017-03-19] MEDS: *HR* Rivaroxaban 15 MG TABLET PO SCH (09:31)
[2017-03-19] MEDS: amLODIPine 5 MG TABLET PO SCH (09:31)
[2017-03-19] MEDS: Acetaminophen 325 MG TABLET PO PRN ×2 (09:34→17:30)
[2017-03-19] MEDS: Furosemide 40 MG/4 ML VIAL IVP SCH (09:36)
[2017-03-19] MEDS ORDERED: Ferumoxytol 510 MG in 0.9 % Sodium Chloride 100 ML IVPB ONE (13:11)
--- NOTE | 2017-03-19 13:11 | Nephrology Progress Note ---
Date of Encounter: 03/19/17 Time of Encounter: 12:50 - Assessment and Plan (1) SAMANTHA (acute kidney injury) Current Visit: No Status: Ruled-out SAMANTHA superimposed on CKD 4 in setting acute on chronic CHF, with interstitial pulmonary edema and diuresis. Baseline creat 2.0-2.7. I&O, avoid nephrotoxins. Will continue to monitor. Creatinine improving 3.28. Urine output 3875. Tsat 5, Hgb 8.2. Will order Fereheme x 2 doses. If discharged home these can be done outpatient and we will follow him in office. Subjective Interval history: Sitting up in chair, states feeling and breathing much better. States he may be discharged home today. Objective - Vital Signs Vital signs: Vital Signs Temp Pulse Resp BP Pulse Ox 03/19/17 11:15 97.7 F 85 18 141/60 99 03/19/17 10:19 20 99 Intake and Output 03/18/17 03/19/17 03/19/17 23:59 07:59 15:59 Intake Total 480 / 480 Output Total 800 / 800 Balance -320 / -320 Intake: Oral 480 / 480 Output: Urine 800 / 800 Other: Meal Lunch Percent of Meal Consumed 100% - General Appearance General appearance: Present: well-developed, well-nourished, appears started age EENT: Present: mucous membranes moist Neck: Present: no JVD Respiratory: Present: wheezing, course breath sounds Cardiology: Present: edema, regular rate, regular rhythm Gastrointestinal: Present: normoactive bowel sounds, no tenderness Integumentary: Present: warm and dry Neurologic: Present: alert and oriented x3 - Lab 03/19/17 05:58 03/19/17 05:58 Most recent lab results Calcium 9.5 mg/dL (8.6-10.8) 03/19/17 05:58 Magnesium 2.2 mg/dL (1.6-2.6) 03/19/17 05:58 Consult Discharge Plan - Plan Referrals: Benoit Cosme Jr, MD [Primary Care Provider] -
--- NOTE | 2017-03-19 14:34 | Discharge Summary ---
Date of Encounter: 03/19/17 Time of Encounter: 14:32 - Discharge Diagnosis (1) COPD with acute exacerbation Priority: Primary Status: Acute (2) Acute exacerbation of CHF (congestive heart failure) Priority: Primary Status: Acute Qualifiers: Congestive heart failure type: systolic Qualified Code(s): I50.23 - Acute on chronic systolic (congestive) heart failure (3) Atrial fibrillation Priority: Secondary Status: Chronic Qualifiers: Atrial fibrillation type: chronic Qualified Code(s): I48.2 - Chronic atrial fibrillation (4) Acute renal failure superimposed on stage 3 chronic kidney disease Priority: Secondary Status: Acute Qualifiers: Acute renal failure type: unspecified Qualified Code(s): N17.9 - Acute kidney failure, unspecified; N18.3 - Chronic kidney disease, stage 3 (moderate) (5) Hypertension Priority: Secondary Status: Acute Qualifiers: Hypertension type: essential hypertension Qualified Code(s): I10 - Essential (primary) hypertension - Discharge Medications Prescriptions: Ipratropium/Albuterol Neb [Duoneb] 3 ml IH Q6HR #120 inhsol Doxycycline Hyclate 100 mg PO BID #20 capsule predniSONE [PredniSONE] 10 mg PO DAILY #70 tablet Home Medications: Aspirin 81 mg PO DAILY 11/01/15 [History] Cholecalciferol (D-3) [Vitamin D] 2,000 unit PO DAILY 11/01/15 [History] Metoprolol [Lopressor] 50 mg PO BID #60 tablet 11/02/15 [Rx] Acetaminophen [Tylenol] 1,000 mg PO BID 08/16/16 [History] Gluc Alvarez/Chondro Alvarez A/Vit C/Mn [Glucosamine Chondroitin Tab] 1 each PO DAILY [History] Rivaroxaban [Xarelto] 15 mg PO DAILY 08/16/16 [History] Albuterol Sulfate [Proair Hfa] 2 puff IH Q4H PRN 03/17/17 [History] Atorvastatin [Lipitor] 40 mg PO HS 03/17/17 [History] Furosemide [Lasix] 40 mg PO DAILY 03/17/17 [History] amLODIPine [Norvasc] 5 mg PO BID 03/17/17 [History] Doxycycline Hyclate 100 mg PO BID #20 capsule 03/19/17 [Rx] Ipratropium/Albuterol Neb [Duoneb] 3 ml IH Q6HR #120 inhsol 03/19/17 [Rx] predniSONE [PredniSONE] 10 mg PO DAILY #70 tablet 03/19/17 [Rx] Allergies/Adverse Reactions: 3 Allergy/AdvReac Type Severity Reaction Status Date / Time No Known Allergies Allergy Verified 11/01/15 00:22 Date of admission: 03/19/17 07:59 Primary care physician: Benoit Cosme Jr, MD Discharging clinician: Christina Tenorio Anticipated date of discharge: 03/19/17 - Patient Status Disposition: Home, Self-Care Condition: Fair Overall status at discharge: patient is progressing back to baseline - Discharge Instructions Follow Up With: Benoit Cosme Jr, MD [Primary Care Provider] - 03/31/17 11:00 am - Diet and Activity Activity: resume usual activities as tolerated Diet: advance to your usual diet, low fat, low cholesterol, low salt diet Hospital course: Mr. Mcqueen is a 81 year old male with a PMH of A-fib, CAD, HLD, HTN, and CKD III presents today with a 3 day h/o increasing dyspnea on exertion and BLE swelling. Was at wound clinic today for a check up of chronic Rt leg wound and the physician was concerned for his symptoms and sent him to the ED for admission. Denies any weight gain, or chest pain. Workup in ED reveals negative EKG without st changes, BNP 375,and negative trop. CXR show chronic interstitial pulmonary edema. Echo 07/2016 show EF 55-65%. He is additionally noted to have chronic anemia. He is being admitted for further workup and monitoring of worsening renal function, anemia and an acute on chronic exacerbation of CHF. It was noted that patient was still in CHF and therefore IV Lasix was given that has diuresed him well and I think today's in euvolemic state. He might have acute diastolic congestive heart failure as his EF is within normal range with no wall motion abnormality or valvular abnormality. We added nebulizers IV steroids and his breathing has improved significantly. Will continue same as outpatient. Patient will see his family doctor as outpatient. Today's chest examination showed it is clear. Patient has recommended outpatient physical therapy as he had PT and OT eval during this hospitalization. - Time Spent with Patient Total time spent providing and/or coordinating discharge services: Greater than 30 minutes - Constitutional Vitals: Temp Pulse Resp BP Pulse Ox 97.7 F 85 18 141/60 99 03/19/17 11:15 03/19/17 11:15 03/19/17 11:15 03/19/17 11:15 03/19/17 11:15 General appearance: Present: cooperative, A&O X 3, no acute distress, answers questions appropriately - Head Head exam: Present: atraumatic, normocephalic - Eye Eye exam: Present: PERRL, conjuntiva pink, sclera anicteric Pupils: Present: PERRL - Neck Neck exam general surgery: Present: supple, trachea midline. Absent: lymphadenopathy - Respiratory Respiratory exam: Present: CTAB. Absent: accessory muscle use, rales, rhonchi, wheezes - Cardiovascular Cardiovascular exam: Present: RRR, +S1, +S2. Absent: diastolic murmur, gallop, rubs, systolic murmur - GI/Abdominal GI/Abdominal exam: Present: normal bowel sounds, soft, no peritoneal signs. Absent: distended, tenderness - Extremities Exam Extremities exam: Present: pedal edema, warm, radial pulses palpable and symmetrical. Absent: calf tenderness, cyanotic - Neurological Exam Neurological exam: Present: CN II-XII intact, oriented X3, no focal deficits. Absent: pronater drift, facial droop, speech deficit - Skin Skin exam: Present: dry, intact
[2017-03-19] MEDS ORDERED: [UNRECOGNIZED DRUG - OTHER] IM ONE (15:17)
[2017-03-19 15:26] VITALS: BP 118/66
[2017-03-19] MEDS ORDERED: predniSONE 20 MG TABLET PO SCH (17:00)
== END 2017-03-19 19:25 | disposition home or self-care (01) | DRG 682 ==
LOC: EMEROO 14:42 → 2ANU 14:42
PROVIDERS: ADMIT Family Medicine; ATTEND Internal Medicine

== ENCOUNTER 2017-04-04 12:33 | Inpatient (IN) ==
[2017-04-04] MEDS ORDERED: Vancomycin 1,500 MG in D5% in Water 250 ML IVPB ONE (14:12)
[2017-04-04] MEDS ORDERED: Piperacillin/Tazobactam 3.375 GM in D5% in Water (Mini-Bag+) 100 ML IVPB ONE (14:12)
[2017-04-04] MEDS ORDERED: Ipratropium/Albuterol Neb 3 ML IH ONE (14:18)
--- NOTE | 2017-04-04 14:19 | Emergency Department Note ---
Disposition Clinical Impression: Cellulitis of both lower extremities, Bilateral lower extremity edema, Bilateral lower extremity pain Leukocytosis Qualifiers: Leukocytosis type: unspecified Qualified Code(s): D72.829 - Elevated white blood cell count, unspecified Chronic renal insufficiency Qualifiers: Chronic kidney disease stage: unspecified stage Qualified Code(s): N18.9 - Chronic kidney disease, unspecified Disposition: Admitted As Inpatient Condition: Fair Time of Disposition: 15:54 Extremity Problem HPI - General Chief complaint: ED Extremity Problem,Nontraumatic Stated complaint: Rt leg pain, swelling, possible infection Time Seen by Provider: 04/04/17 13:36 Source: patient Limitations: no limitations Nursing Notes Reviewed: Yes Vital Signs Reviewed: Yes - History of Present Illness HPI Narrative: Patient is a 81-year-old male bilateral lower extremity pain and swelling and a history of venous reflux in both lower extremities x 1 day. Patient also has a history of A. 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 Patient states she is currently on antibiotics for possible infection of his legs and sees wound care. Patient noticed a worsening swelling and increase pain and was directed to come to the ED today. Pain Scale: 2 - Related Data Home Medications Medication Instructions Recorded Confirmed Aspirin 81 mg PO DAILY 11/01/15 04/04/17 Cholecalciferol (D-3) [Vitamin D] 2,000 unit PO DAILY 11/01/15 04/04/17 Acetaminophen [Tylenol] 1,000 mg PO BID 08/16/16 04/04/17 Gluc Alvarez/Chondro Alvarez A/Vit C/Mn 1 each PO DAILY 08/16/16 04/04/17 [Glucosamine Chondroitin Tab] Rivaroxaban [Xarelto] 15 mg PO DAILY 08/16/16 04/04/17 Albuterol Sulfate [Proair Hfa] 2 puff IH Q4H PRN 03/17/17 04/04/17 Atorvastatin [Lipitor] 40 mg PO HS 03/17/17 04/04/17 amLODIPine [Norvasc] 5 mg PO BID 03/17/17 04/04/17 Furosemide [Lasix] 20 mg PO DAILY 04/04/17 04/04/17 Previous Rx's Medication Instructions Recorded Metoprolol [Lopressor] 50 mg PO BID #60 tablet 11/02/15 Ipratropium/Albuterol Neb [Duoneb] 3 ml IH Q6HR #120 inhsol 03/19/17 Allergies Allergy/AdvReac Type Severity Reaction Status Date / Time No Known Allergies Allergy Verified 11/01/15 00:22 All systems ED: reviewed and negative except as stated. Review of Systems: As Per HPI Constitutional: Reports: fever Eyes: Denies: vision change ENT ED: Denies: congestion Cardiovascular: Denies: chest pain, palpitations Respiratory: Reports: cough, dyspnea, wheezes Gastrointestinal: Denies: abdominal pain, nausea, vomiting, diarrhea Genitourinary: Denies: urgency, dysuria, frequency Musculoskeletal: Reports: joint swelling. Denies: back pain, neck pain Integumentary: Denies: rash Neurological: Denies: headache, weakness Psychiatric: Denies: anxiety, depression Endocrine: Denies: fatigue Past Medical History - Past Medical History Attestation: Yes The following information was validated with the patient. Source: patient Medical history: Reports: atrial fibrillation, coronary artery disease, hyperlipidemia, hypertension, renal disease Surgical history: Reports: orthopedic, other, other Psychiatric history: Reports: no psych history - Social History Smoking Status: Current every day smoker Smokeless Tobacco Status: No Alcohol use: Reports: occasionally Drug use: Reports: none Physical Exam Patient's a 81-year-old male who is alert and oriented 3 and in no acute distress. Patient has his lower extremities exposed which are swollen and erythematous with the right worse than the left. Feet are tender to palpation. Patient has good bilateral distal pulses and dorsal pedal and posterior tibial regions. - General Limitations: no limitations General appearance: alert, in no apparent distress - Head Head exam: atraumatic, normocephalic, normal inspection - Eye Eye exam: Present: normal appearance, PERRL, EOMI - ENT ENT exam: normal exam, normal oropharynx, mucous membranes moist - Neck Neck exam: Present: normal inspection, full ROM, trachea midline - Chest Chest inspection: Present: normal inspection, symmetric chest wall rise - Respiratory Respiratory exam: Present: wheezes (Bilateral) - Cardiovascular Cardiovascular exam: Present: regular rate - Abdominal Exam Abdominal exam: Present: soft, Non-Tender. Absent: tenderness, distention, guarding, rebound, rigidity - Extremities Exam Extremities exam: Present: tenderness, pedal edema (2+ pitting), joint swelling (Bilateral ankle). Absent: calf tenderness Course - Reevaluation(s) Reevaluation #2: Venous Doppler bilateral lower extremities ordered Time: 15:55 Vital Signs Temperature 97.8 F 04/04/17 12:50 Pulse Rate 85 04/04/17 12:50 Respiratory Rate 18 04/04/17 12:50 Blood Pressure 117/61 04/04/17 12:50 O2 Sat by Pulse Oximetry 100 04/04/17 12:50 Temperature 98.3 F 04/06/17 10:47 Pulse Rate 75 04/06/17 10:47 Respiratory Rate 16 04/06/17 10:47 Blood Pressure 115/62 04/06/17 10:47 O2 Sat by Pulse Oximetry 95 04/06/17 10:47 Oxygen Delivery Oxygen Delivery Room Air Extremity Problem, Nontraumati - MDM Narrative Medical decision making narrative: Patient is a 81-year-old male with history of leg infections secondary to venous reflux bilateral lower extremities. Patient's worsening pain and redness to both lower extremities concerning for infection, osteomyelitis, cellulitis. Lab workups to include CBC, BMP, chest x-ray because of A. fib, EKG, cultures, x -rays of lower extremities, lactic acid ordered. X-rays show no subcutaneous gas production, no osseous expansion consistent with osteomyelitis. Bilateral lower extremity Dopplers were negative for DVTs. Patient's BUN and creatinine levels are chronically elevated but are lower than previously recorded. Patient be started on vancomycin patient had a milligrams IV piggyback and Zosyn 3.375 mg IV. Plans to admit patient for bilateral lower extremity cellulitis with associated elevated WBC of 17.3. Patient understands and agrees to treatment plan for admission. Hospitalist George Madsen [facility] has accepted patient for admission. - Medical Records Short CBC 04/04/17 04/04/17 Range/Units 23:35 14:51 WBC 17.3 H (4.3-11.1) K/mcL Hgb 7.2 L 7.9 L (12.9-16.9) g/dL Hct 23.5 L 26.0 L (37.5-50.1) % Plt Count 112 L (140-400) K/mcL Neutrophils # 15.2 H (1.6-8.9) K/mcL BMP 04/04/17 Range/Units 14:51 Sodium 139 (136-145) mEq/L Potassium 4.0 (3.5-4.5) mEq/L Chloride 107 (98-109) mEq/L Carbon Dioxide 23 (19-29) mEq/L BUN 65 H (8-26) mg/dL Creatinine 2.32 H (0.72-1.25) mg/dL Glucose 104 H (70-99) mg/dL Calcium 8.6 (8.6-10.8) mg/dL Cardiac Enzymes 04/04/17 Range/Units 14:51 Troponin I 0.02 (0-0.03) ng/mL Liver Function 04/04/17 Range/Units 14:51 Total Bilirubin 0.9 (0.2-1.2) mg/dL Direct Bilirubin 0.6 H (0.0-0.5) mg/dL AST 11 (5-34) Units/L ALT 39 (0-55) Units/L Alkaline Phosphatase 70 (38-126) Units/L Albumin 3.0 L (3.5-5.0) g/dL Urine 04/04/17 Range/Units 18:30 Urine Color Yellow (Yellow) Urine Clarity Clear (Clear) Urine pH 6.0 (5.0-8.0) pH Units Ur Specific [place] 1.015 (1.010-1.025) Urine Protein Trace (Neg-Trace) mg/dL Urine Glucose (UA) Normal (Normal) mg/dL - Lab Data Lab results reviewed: Yes I reviewed the patient's lab results. Lab results narrative: Short CBC 04/04/17 04/04/17 Range/Units 23:35 14:51 WBC 17.3 H (4.3-11.1) K/mcL Hgb 7.2 L 7.9 L (12.9-16.9) g/dL Hct 23.5 L 26.0 L (37.5-50.1) % Plt Count 112 L (140-400) K/mcL Neutrophils # 15.2 H (1.6-8.9) K/mcL BMP 04/04/17 Range/Units 14:51 Sodium 139 (136-145) mEq/L Potassium 4.0 (3.5-4.5) mEq/L Chloride 107 (98-109) mEq/L Carbon Dioxide 23 (19-29) mEq/L BUN 65 H (8-26) mg/dL Creatinine 2.32 H (0.72-1.25) mg/dL Glucose 104 H (70-99) mg/dL Calcium 8.6 (8.6-10.8) mg/dL Cardiac Enzymes 04/04/17 Range/Units 14:51 Troponin I 0.02 (0-0.03) ng/mL Liver Function 04/04/17 Range/Units 14:51 Total Bilirubin 0.9 (0.2-1.2) mg/dL Direct Bilirubin 0.6 H (0.0-0.5) mg/dL AST 11 (5-34) Units/L ALT 39 (0-55) Units/L Alkaline Phosphatase 70 (38-126) Units/L Albumin 3.0 L (3.5-5.0) g/dL Urine 04/04/17 Range/Units 18:30 Urine Color Yellow (Yellow) Urine Clarity Clear (Clear) Urine pH 6.0 (5.0-8.0) pH Units Ur Specific [place] 1.015 (1.010-1.025) Urine Protein Trace (Neg-Trace) mg/dL Urine Glucose (UA) Normal (Normal) mg/dL Result diagrams: 04/06/17 06:40 04/06/17 06:40 Lab Results 04/04/17 04/04/17 04/04/17 Range/Units 14:51 14:51 14:51 WBC 17.3 H (4.3-11.1) K/mcL RBC 2.72 L (4.19-5.50) M/mcL Hgb 7.9 L (12.9-16.9) g/dL Hct 26.0 L (37.5-50.1) % MCV 95.6 (83.0-100.0) fL MCH 29.0 (28.0-33.3) pg MCHC 30.4 L (31.6-35.5) g/dL RDW 18.6 H (11.5-14.5) % Plt Count 112 L (140-400) K/mcL MPV 11.2 (9.4-12.4) fL Immature Gran % 0.8 (0-4) % Seg Neutrophils % 87.5 % Lymphocytes % 3.4 % Monocytes % 7.9 % Eosinophils % 0.3 % Basophils % 0.1 % Neutrophils # 15.2 H (1.6-8.9) K/mcL Lymphocytes # 0.6 (0.6-4.6) K/mcL Monocytes # 1.4 H (0.0-1.3) K/mcL Eosinophils # 0.1 (0.0-0.6) K/mcL Basophils # 0.0 (0.0-0.2) K/mcL APTT 31.4 (26.0-36.0) Seconds Sodium 139 (136-145) mEq/L Potassium 4.0 (3.5-4.5) mEq/L Chloride 107 (98-109) mEq/L Carbon Dioxide 23 (19-29) mEq/L BUN 65 H (8-26) mg/dL Creatinine 2.32 H (0.72-1.25) mg/dL Est GFR ( Amer) 33 L (> 60) Est GFR (Non-Af Amer) 27 L (> 60) BUN/Creatinine Ratio 28 H (6-26) Glucose 104 H (70-99) mg/dL Calculated Osmolality 307 H (280-300) Lactic Acid (0.5-2.2) mmol/L Calcium 8.6 (8.6-10.8) mg/dL Phosphorus 3.7 (2.3-4.7) mg/dL Magnesium 2.2 (1.6-2.6) mg/dL Total Bilirubin 0.9 (0.2-1.2) mg/dL Direct Bilirubin 0.6 H (0.0-0.5) mg/dL Indirect Bilirubin 0.3 (0.0-1.2) mg/dL AST 11 (5-34) Units/L ALT 39 (0-55) Units/L Alkaline Phosphatase 70 (38-126) Units/L Troponin I (0-0.03) ng/mL Serum Total Protein 6.2 (6.0-8.3) g/dL Albumin 3.0 L (3.5-5.0) g/dL Globulin 3.2 (2.4-3.5) g/dL Albumin/Globulin Ratio 0.9 L (1.1-2.2) Urine Color (Yellow) Urine Clarity (Clear) Urine pH (5.0-8.0) pH Units Ur Specific [place] (1.010-1.025) Urine Protein (Neg-Trace) mg/dL Urine Glucose (UA) (Normal) mg/dL Urine Ketones (Negative) mg/dL Urine Blood (Negative) Urine Nitrite (Negative) Urine Bilirubin (Negative) Urine Urobilinogen (Normal) mg/dL Ur Leukocyte Esterase (Negative) Urine Microscopic RBC (0-3) per hpf Urine Microscopic WBC (0-3) per hpf Ur Squamous Epith Cells (None-Few) per lpf Urine Bacteria (None-Few) per hpf Hyaline Casts (None-Few) per lpf Ur Culture Indicated? (NO) Blood Type Antibody Screen Crossmatch 04/04/17 04/04/17 04/04/17 Range/Units 14:51 14:51 18:30 WBC (4.3-11.1) K/mcL RBC (4.19-5.50) M/mcL Hgb (12.9-16.9) g/dL Hct (37.5-50.1) % MCV (83.0-100.0) fL MCH (28.0-33.3) pg MCHC (31.6-35.5) g/dL RDW (11.5-14.5) % Plt Count (140-400) K/mcL MPV (9.4-12.4) fL Immature Gran % (0-4) % Seg Neutrophils % % Lymphocytes % % Monocytes % % Eosinophils % % Basophils % % Neutrophils # (1.6-8.9) K/mcL Lymphocytes # (0.6-4.6) K/mcL Monocytes # (0.0-1.3) K/mcL Eosinophils # (0.0-0.6) K/mcL Basophils # (0.0-0.2) K/mcL APTT (26.0-36.0) Seconds Sodium (136-145) mEq/L Potassium (3.5-4.5) mEq/L Chloride (98-109) mEq/L Carbon Dioxide (19-29) mEq/L BUN (8-26) mg/dL Creatinine (0.72-1.25) mg/dL Est GFR ( Amer) (> 60) Est GFR (Non-Af Amer) (> 60) BUN/Creatinine Ratio (6-26) Glucose (70-99) mg/dL Calculated Osmolality (280-300) Lactic Acid 0.8 (0.5-2.2) mmol/L Calcium (8.6-10.8) mg/dL Phosphorus (2.3-4.7) mg/dL Magnesium (1.6-2.6) mg/dL Total Bilirubin (0.2-1.2) mg/dL Direct Bilirubin (0.0-0.5) mg/dL Indirect Bilirubin (0.0-1.2) mg/dL AST (5-34) Units/L ALT (0-55) Units/L Alkaline Phosphatase (38-126) Units/L Troponin I 0.02 (0-0.03) ng/mL Serum Total Protein (6.0-8.3) g/dL Albumin (3.5-5.0) g/dL Globulin (2.4-3.5) g/dL Albumin/Globulin Ratio (1.1-2.2) Urine Color Yellow (Yellow) Urine Clarity Clear (Clear) Urine pH 6.0 (5.0-8.0) pH Units Ur Specific [place] 1.015 (1.010-1.025) Urine Protein Trace (Neg-Trace) mg/dL Urine Glucose (UA) Normal (Normal) mg/dL Urine Ketones Negative (Negative) mg/dL Urine Blood Negative (Negative) Urine Nitrite Negative (Negative) Urine Bilirubin Negative (Negative) Urine Urobilinogen Normal (Normal) mg/dL Ur Leukocyte Esterase Negative (Negative) Urine Microscopic RBC 3-5 H (0-3) per hpf Urine Microscopic WBC 0-3 (0-3) per hpf Ur Squamous Epith Cells Few (None-Few) per lpf Urine Bacteria None Seen (None-Few) per hpf Hyaline Casts None Seen (None-Few) per lpf Ur Culture Indicated? NO (NO) Blood Type Antibody Screen Crossmatch 04/04/17 Range/Units 19:24 WBC (4.3-11.1) K/mcL RBC (4.19-5.50) M/mcL Hgb (12.9-16.9) g/dL Hct (37.5-50.1) % MCV (83.0-100.0) fL MCH (28.0-33.3) pg MCHC (31.6-35.5) g/dL RDW (11.5-14.5) % Plt Count (140-400) K/mcL MPV (9.4-12.4) fL Immature Gran % (0-4) % Seg Neutrophils % % Lymphocytes % % Monocytes % % Eosinophils % % Basophils % % Neutrophils # (1.6-8.9) K/mcL Lymphocytes # (0.6-4.6) K/mcL Monocytes # (0.0-1.3) K/mcL Eosinophils # (0.0-0.6) K/mcL Basophils # (0.0-0.2) K/mcL APTT (26.0-36.0) Seconds Sodium (136-145) mEq/L Potassium (3.5-4.5) mEq/L Chloride (98-109) mEq/L Carbon Dioxide (19-29) mEq/L BUN (8-26) mg/dL Creatinine (0.72-1.25) mg/dL Est GFR ( Amer) (> 60) Est GFR (Non-Af Amer) (> 60) BUN/Creatinine Ratio (6-26) Glucose (70-99) mg/dL Calculated Osmolality (280-300) Lactic Acid (0.5-2.2) mmol/L Calcium (8.6-10.8) mg/dL Phosphorus (2.3-4.7) mg/dL Magnesium (1.6-2.6) mg/dL Total Bilirubin (0.2-1.2) mg/dL Direct Bilirubin (0.0-0.5) mg/dL Indirect Bilirubin (0.0-1.2) mg/dL AST (5-34) Units/L ALT (0-55) Units/L Alkaline Phosphatase (38-126) Units/L Troponin I (0-0.03) ng/mL Serum Total Protein (6.0-8.3) g/dL Albumin (3.5-5.0) g/dL Globulin (2.4-3.5) g/dL Albumin/Globulin Ratio (1.1-2.2) Urine Color (Yellow) Urine Clarity (Clear) Urine pH (5.0-8.0) pH Units Ur Specific [place] (1.010-1.025) Urine Protein (Neg-Trace) mg/dL Urine Glucose (UA) (Normal) mg/dL Urine Ketones (Negative) mg/dL Urine Blood (Negative) Urine Nitrite (Negative) Urine Bilirubin (Negative) Urine Urobilinogen (Normal) mg/dL Ur Leukocyte Esterase (Negative) Urine Microscopic RBC (0-3) per hpf Urine Microscopic WBC (0-3) per hpf Ur Squamous Epith Cells (None-Few) per lpf Urine Bacteria (None-Few) per hpf Hyaline Casts (None-Few) per lpf Ur Culture Indicated? (NO) Blood Type O POSITIVE Antibody Screen NEGATIVE Crossmatch See Detail - Radiology Data Radiology results reviewed: Yes I reviewed the patient's radiology results. Tibia/Fibula X-Ray 04/04/17 14:07 IMPRESSION: Nonspecific soft tissue swelling in the left leg and left foot. No acute osseous abnormality in the left leg or left foot. D/ / 04/04/2017 15:36:18 Clayton Roblero MD / ad Interpreting Provider: Clayton Roblero MD Foot X-Ray 04/04/17 14:14 IMPRESSION: Nonspecific soft tissue swelling in the left leg and left foot. No acute osseous abnormality in the left leg or left foot. D/ / 04/04/2017 15:36:18 Clayton Roblero MD / ad Interpreting Provider: Clayton Roblero MD - EKG Data EKG attestation: Yes I reviewed and interpreted this EKG. EKG results narrative: EKG taken 04/04/2017 at 1420 hrs. shows A. fib at a rate of 72 bpm with no acute ST elevations in any leads, patient says right bundle-branch block with ST depression in V2 and V3 V4 V5 and V6 which is seen on previous EKG taken . Both EKGs look fairly equal in comparison. Attestation Statement - Attestation Attestation: I examined this patient and my medical decision-making was reviewed with the Resident Physician. I agree with the documented findings, disposition and treatment plan as described except to the extent set forth below. Patient presents to the ED with a chief complaint of leg swelling and redness. Onset several days ago and worsening. Patient has a history of arterial insufficiency in his legs. This is not a surgical candidate secondary to his medical problems. He has had increased swelling. Increasingly red and warm. Family brings in for evaluation. On exam he has pitting edema to bilateral lower extremities. Erythema of the lower shins and feet. Warm to touch. Plan. His white blood cell count elevated at 17,000. IV antibiotics and admit. Patient's blood pressure heart rate are good. He does have a creatinine greater than 2, however this is chronic for him. 35 minutes of critical care exclusive of separately billed procedures.
[2017-04-04 15:01] LABS: Basophils % 0.1 %; Eosinophils # 0.1 K/mcL (0.0-0.6); Eosinophils % 0.3 %; Immature Granulocytes % 0.8 % (0-4); Lymphocytes # 0.6 K/mcL (0.6-4.6); Lymphocytes % 3.4 %; Mean Corpuscular HGB Conc 30.4 g/dL (31.6-35.5); Mean Corpuscular Volume 95.6 fL (83.0-100.0); Mean Platelet Volume 11.2 fL (9.4-12.4); Monocytes # 1.4 K/mcL (0.0-1.3); Monocytes % 7.9 %; Neutrophils # 15.2 K/mcL (1.6-8.9); Platelet Count 112 K/mcL (140-400); Red Blood Count 2.72 M/mcL (4.19-5.50); Red Cell Distribution Width 18.6 % (11.5-14.5); Segmented Neutrophils % 87.5 %
[2017-04-04 15:22] LABS: Albumin/Globulin Ratio 0.9 (1.1-2.2); Bilirubin,Direct 0.6 mg/dL (0.0-0.5); Bilirubin,Indirect 0.3 mg/dL (0.0-1.2); Bilirubin,Total 0.9 mg/dL (0.2-1.2); Calcium 8.6 mg/dL (8.6-10.8); Globulin 3.2 g/dL (2.4-3.5); Magnesium 2.2 mg/dL (1.6-2.6); Phosphorous 3.7 mg/dL (2.3-4.7); Total Protein 6.2 g/dL (6.0-8.3)
[2017-04-04 15:24] LABS: Hemoglobin 7.9 g/dL (12.9-16.9)
[2017-04-04] MEDS ORDERED: 0.9 % Sodium Chloride 1,000 ML IVC ONE (15:40)
[2017-04-04 18:39] LABS: Bilirubin,Urine Negative (Negative); Blood,Urine Negative (Negative); Clarity,Urine Clear (Clear); Color,Urine Yellow (Yellow); Glucose,Urine (UA) Normal (Normal); Ketones,Urine Negative (Negative); Leukocyte Esterase,Urine Negative (Negative); Nitrite,Urine Negative (Negative); Protein,Urine Trace mg/dL (Neg-Trace); Specific Gravity,Urine 1.015 (1.010-1.025); Urobilinogen,Urine Normal (Normal)
[2017-04-04 18:41] LABS: Bacteria,Urine None Seen per hpf (None-Few); Hyaline Casts,Urine None Seen per lpf (None-Few); Squamous Epithelial Cell,Urine Few per lpf (None-Few); WBC,Urine 0-3 per hpf (0-3)
[2017-04-04] MEDS ORDERED: *HR* HYDROcodone/Acet 5/325 mg TABLET PO PRN (22:17)
[2017-04-04] MEDS ORDERED: *HR* Morphine 2 MG/ML SYRINGE IVP PRN (22:17)
[2017-04-04] MEDS ORDERED: Ondansetron 4 MG/2 ML VIAL IVP PRN (22:17)
[2017-04-04] MEDS ORDERED: Naloxone 0.4 MG/ML INJ IVP PRN (22:22)
[2017-04-04] MEDS ORDERED: Vancomycin 1,500 MG in D5% in Water 250 ML IVPB SCH (23:00)
--- NOTE | 2017-04-04 23:45 | Internal Med History&Physical ---
<George Madsen - Last Filed: 04/05/17 00:22> Date of Encounter: 04/04/17 Time of Encounter: 20:00 Assessment and Plan (1) Cellulitis Current visit: Yes Status: Acute Patient presents with bilateral pedal edema with erythema of lower extremities. Patient reports he has history of venous reflux and lower extremities and is currently followed by the wound care center. Patient states edema and erythema have worsened over the past 2 days bringing him to the ED. On examination, bilateral cellulitis apparent in lower extremities. Patient currently has WBC of 17.3. IVPB vancomycin with pharmacy dosing ordered for infection coverage. Wound care consult and daily wound care ordered. Blood cultures 2 ordered. Patient does not currently meet SIRS criteria but will be monitored closely for signs of increasing infection, cardiac, and/or respiratory distress. Mr. Mcqueen is at high risk for morbidity based on current infection and cellulitis, history, and risk factors and will be placed as inpatient status. Qualifiers: Site of cellulitis: extremity Site of cellulitis of extremity: lower extremity Laterality: left Qualified Code(s): L03.116 - Cellulitis of left lower limb (2) Acute on chronic kidney failure Current visit: Yes Status: Acute Patient presents with GFR of 27 and creatinine of 2.32, with GFR down from 32 on 08/21/16 and creatinine up from 2.01 on 08/21/16. Will use IV fluids judiciously if warranted. Renal diet with daily fluid restriction of 1.0L. Monitor renal function in f/u labs. Monitor I&O and daily weight. Qualifiers: Acute renal failure type: unspecified Chronic kidney disease stage: stage 4 (severe) Qualified Code(s): N17.9 - Acute kidney failure, unspecified; N18.4 - Chronic kidney disease, stage 4 (severe); N18.4 - Chronic kidney disease , stage 4 (severe); N18.4 - Chronic kidney disease, stage 4 (severe); N18.4 - Chronic kidney disease, stage 4 (severe) (3) CAD (coronary artery disease) Current visit: Yes Status: Chronic Hx of chronic CAD. Lipid panel and A1c ordered in a.m. labs. Will continue patient's Lipitor, Norvasc, metoprolol, aspirin therapy. Xarelto to be continued as well for DVT prophylaxis. Patient placed on continuous cardiac telemetry. Qualifiers: Coronary Disease-Associated Artery/Lesion type: [place] artery [place] vs. transplanted heart: [place] heart Associated angina: angina presence unspecified Qualified Code(s): I25.10 - Atherosclerotic heart disease of [place] coronary artery without angina pectoris (4) HLD (hyperlipidemia) Current visit: Yes Status: Chronic Hx of chronic HLD. Lipid panel ordered in a.m. labs. Continue Lipitor. Qualifiers: Hyperlipidemia type: pure hypercholesterolemia Qualified Code(s): E78.00 - Pure hypercholesterolemia, unspecified; E78.0 - Pure hypercholesterolemia (5) HTN (hypertension) Current visit: Yes Status: Chronic Hx of chronic HTN. Monitor patient and VS and continue Norvasc and Lopressor. Qualifiers: Hypertension type: essential hypertension Qualified Code(s): I10 - Essential (primary) hypertension (6) Anemia Current visit: Yes Status: Chronic Hx of chronic anemia. Hgb 7.2 and Hct 23.5 today, down from 10.6 and 34.4 on . Patient denies unusual bleeding. Type and screen ordered. Will transfuse if necessary. Will trend H/H Q6. Fecal hemoccult ordered. Will order GI consult based on fecal heme and f/u H/H labs. Qualifiers: Anemia type: due to chronic kidney disease Chronic kidney disease stage: stage 4 (severe) Qualified Code(s): N18.4 - Chronic kidney disease, stage 4 ( severe); D63.1 - Anemia in chronic kidney disease; D63.1 - Anemia in chronic kidney disease (7) GERD (gastroesophageal reflux disease) Current visit: Yes Status: Chronic Hx of chronic GERD. IVP Protonix 40 mg BID. IVP Zofran Q6 PRN for nausea. Qualifiers: Esophagitis presence: esophagitis presence not specified Qualified Code(s) : K21.9 - Gastro-esophageal reflux disease without esophagitis (8) Atrial fibrillation Current visit: Yes Status: Chronic Hx of chronic Afib. Patient placed on continuous cardiac telemetry. Qualifiers: Atrial fibrillation type: chronic Qualified Code(s): I48.2 - Chronic atrial fibrillation (9) DVT prophylaxis Current visit: Yes Status: Acute Continue patient's Xarelto for DVT prophylaxis. Internal Medicine - H&P: HPI Chief complaint: Bilateral LE Edema and Pain Admitted From: Emergency Dept Plans for Post Hospital Care: Home History of present illness: Mr. Mcqueen is a 81 year old male with medical history of atrial fibrillation, CAD, HLD, HTN, and stage IV renal disease presents from the ED with chief complaint of increasing edema and erythema of the bilateral lower extremities for the past 2 days. Patient reports he has venous reflux bilaterally in lower extremities and is followed by wound care center. Patient reports pain in the feet and lower legs, worse in the right leg than the left. Feet are painful to palpation and are warm with bilateral pulses. Patient denies any other recent illness, chest pain, palpitations, fever, chills, nausea, vomiting, headache, changes in vision, abdominal pain, unusual bleeding, numbness and tingling, neurological deficits, weakness, lightheadedness, dizziness, presyncope, or syncope. Past Med Surg Social Fam HX - Past Medical History Source: patient, old records reviewed Medical history: atrial fibrillation, coronary artery disease, hyperlipidemia, hypertension, renal disease Psychiatric history: no psych history - Past Surgical History Surgical History: carotid endarterectomy (Right), orthopedic, other (Left knee) , other - Social History Smoking Status: Current every day smoker Packs per day: 1/2 PPD Smokeless Tobacco Status: No Alcohol use: occasionally Drug use: none Current living situation: Home Activity Level: Independent ambulation, Uses cane/walker Recent Out of Country Travel Within the Last 8 Weeks: No Exposure or Possible Exposure to Illness During Travel: No - Family History Father Race: Family Member Ethnicity: Non- Living Status: Age at : 91 Cause of : Old age Hx Family Musculoskeletal Disorders: Yes (RA) Mother Race: Family Member Ethnicity: Non- Living Status: Age at : 70 Cause of : Heart failure Hx Family Cardiac Disorders: Yes (Heart Murmur) Hx Family Musculoskeletal Disorders: Yes (RA) Son Race: Family Member Ethnicity: Non- Living Status: Still Living Hx Family Cardiac Disorders: Yes Brother History Unknown: Yes Race: Family Member Ethnicity: Non- Living Status: Still Living Sister Race: Family Member Ethnicity: Non- Living Status: Age at : 82 Cause of : Heart failure Hx Family Cardiac Disorders: Yes (HF) Hx Family Musculoskeletal Disorders: Yes (Arthritis) Internal Medicine - H&P: Meds Aspirin 81 mg PO DAILY 11/01/15 [History] Cholecalciferol (D-3) [Vitamin D] 2,000 unit PO DAILY 11/01/15 [History] Metoprolol [Lopressor] 50 mg PO BID #60 tablet 11/02/15 [Rx] Acetaminophen [Tylenol] 1,000 mg PO BID 08/16/16 [History] Gluc Alvarez/Chondro Alvarez A/Vit C/Mn [Glucosamine Chondroitin Tab] 1 each PO DAILY [History] Rivaroxaban [Xarelto] 15 mg PO DAILY 08/16/16 [History] Albuterol Sulfate [Proair Hfa] 2 puff IH Q4H PRN 03/17/17 [History] Atorvastatin [Lipitor] 40 mg PO HS 03/17/17 [History] amLODIPine [Norvasc] 5 mg PO BID 03/17/17 [History] Ipratropium/Albuterol Neb [Duoneb] 3 ml IH Q6HR #120 inhsol 03/19/17 [Rx] Furosemide [Lasix] 20 mg PO DAILY 04/04/17 [History] 3 Allergy/AdvReac Type Severity Reaction Status Date / Time No Known Allergies Allergy Verified 11/01/15 00:22 All Systems PM: A 10-system review of systems was performed and is negative for pertinent findings except as documented above in the HPI. - Constitutional Constitutional: no chills, no fever(s), no night sweats - EENT Eyes: no change in vision, no discharge, no pain, no photophobia Ears: no ear discharge, no ear pain, no tinnitus Nose, mouth and throat: no dysphagia, no nasal discharge, no neck pain, no sore throat - Breasts Breasts: as per HPI - Cardiovascular Cardiovascular ROS IM: as per HPI, irregular heart rhythm (Atrial fibrillation) , no chest pain, no diaphoresis, no dyspnea, no lightheadedness, no palpitations , no syncope - Respiratory Respiratory: no cough, no dyspnea, no wheezing, no excessive phlegm production - Gastrointestinal Gastrointestinal: no abdominal pain, no diarrhea, no hematemesis, no hematochezia, no melena, no nausea, no vomiting - Genitourinary Genitourinary ROS male: as per HPI - Musculoskeletal Musculoskeletal ROS IM: no numbness, no tingling - Integumentary Integumentary IM: as per HPI, other (Bilateral erythema and edema d/t venous reflux and cellulitis), no rash, no unusual bruising - Neurological Neurological ROS: no confusion, no convulsions, no focal weakness, no numbness, no tingling, no tremor(s) - Psychiatric Psychiatric: as per HPI - Endocrine Endocrine IM: as per HPI - Hematologic/Lymphatic Hematologic/Lymphatic: no easy bruising - Allergic/Immunologic Allergic/Immunologic: as per HPI - Constitutional Vitals: Temp Pulse Resp BP Pulse Ox 98.8 F 97 16 138/63 99 04/04/17 23:06 04/04/17 23:06 04/04/17 23:06 04/04/17 23:06 04/04/17 23:06 General appearance: Present: cooperative, A&O X 3, pleasant, no acute distress, obese, answers questions appropriately - Head Head exam: Present: atraumatic, normocephalic - Eye Eye exam: Present: PERRL, conjuntiva pink, sclera anicteric Pupils: Present: PERRL - ENT ENT exam: Present: normal exam, normal external ear exam - Neck Neck exam general surgery: Present: normal inspection, supple, trachea midline. Absent: lymphadenopathy - Respiratory Respiratory exam: Present: CTAB, wheezes. Absent: accessory muscle use, rales, rhonchi - Cardiovascular Cardiovascular exam: Present: irregular rhythm (Atrial fibrillation) - GI/Abdominal GI/Abdominal exam: Present: normal bowel sounds, soft, no peritoneal signs. Absent: distended, tenderness - Rectal Rectal exam: Present: deferred - Additional comments: exam deferred. - Extremities Exam Extremities exam: Present: pedal edema (Bilateral erythema and edema of LEs), warm - Back Exam Back exam: Present: normal inspection - Neurological Exam Neurological exam: Present: CN II-XII intact, oriented X3, no focal deficits. Absent: pronater drift, facial droop, speech deficit - Psychiatric Psychiatric exam: Present: normal affect, normal mood - Skin Skin exam: Present: erythema (Erythema and edema of the bilateral LEs) Internal Med - H&P Results - Labs CBC & Chem 7: 04/04/17 23:35 04/04/17 14:51 Labs: Urine 04/04/17 Range/Units 18:30 Urine Color Yellow (Yellow) Urine Clarity Clear (Clear) Urine pH 6.0 (5.0-8.0) pH Units Ur Specific [address] 1.015 (1.010-1.025) Urine Protein Trace (Neg-Trace) mg/dL Urine Glucose (UA) Normal (Normal) mg/dL - EKG Data Prior EKG available for review: yes When compared to previous EKG: there is no significant change EKG comments: 04/04/17 23:54 EKG dated 03/17/17 shows atrial fibrillation with right bundle branch block. EKG dated 04/04/17 shows atrial fibrillation with right bundle branch block. - Diagnostic Studies Other Images Additional comments: Impressions Foot X-Ray 04/04/17 14:07 IMPRESSION: No radiographic evidence for acute osseous abnormality of the right foot or right tibia and fibula with degenerative and other findings, as above. D/ / Aroldo Donald / Aroldo Donald Interpreting Provider: Aroldo Donald Tibia/Fibula X-Ray 04/04/17 14:07 IMPRESSION: Nonspecific soft tissue swelling in the left leg and left foot. No acute osseous abnormality in the left leg or left foot. D/ / 04/04/2017 15:36:18 Clayton Roblero MD / ad Interpreting Provider: Clayton Roblero MD Tibia/Fibula X-Ray 04/04/17 14:07 IMPRESSION: No radiographic evidence for acute osseous abnormality of the right foot or right tibia and fibula with degenerative and other findings, as above. D/ / Aroldo Donald / Aroldo Donald Interpreting Provider: Aroldo Donald Foot X-Ray 04/04/17 14:14 IMPRESSION: Nonspecific soft tissue swelling in the left leg and left foot. No acute osseous abnormality in the left leg or left foot. D/ / 04/04/2017 15:36:18 Clayton Roblero MD / ad Interpreting Provider: Clayton Roblero MD <Christina Tenorio - Last Filed: 04/05/17 02:24> Date of Encounter: 04/04/17 Internal Medicine - H&P: HPI History of present illness: Mr. Mcqueen is a 81 year old male All Systems PM: A 10-system review of systems was performed and is negative for pertinent findings except as documented above in the HPI. - Constitutional Vitals: Temp Pulse Resp BP Pulse Ox 98.8 F 97 16 138/63 99 04/04/17 23:06 04/04/17 23:06 04/04/17 23:06 04/04/17 23:06 04/04/17 23:06 Internal Med - H&P Results - Labs CBC & Chem 7: 04/04/17 23:35 04/04/17 14:51 Labs: Short CBC 04/04/17 Range/Units 23:35 Hgb 7.2 L (12.9-16.9) g/dL Hct 23.5 L (37.5-50.1) % Cardiac Enzymes 04/04/17 Range/Units 23:35 Troponin I 0.02 (0-0.03) ng/mL Urine 04/04/17 Range/Units 18:30 Urine Color Yellow (Yellow) Urine Clarity Clear (Clear) Urine pH 6.0 (5.0-8.0) pH Units Ur Specific [address] 1.015 (1.010-1.025) Urine Protein Trace (Neg-Trace) mg/dL Urine Glucose (UA) Normal (Normal) mg/dL - Attending Attestation I have independently and personally seen and examined the patient and have discussed the plan with advanced nurse practitioner. Patient has come in with bilateral lower extremity cellulitis which has failed outpatient treatment. On examination both legs are swollen and edematous shiny red and warm. He does not remember which antibiotic he was on but as he failed outpatient treatment likelihood of MRSA as high therefore will continue IV vancomycin. I will order MRI of both lower extremity to rule out osteomyelitis considering he has history of diabetes . According to patient in ER ultrasound of the leg was done but I have not seen any report. He was apparently told that there was no DVT. I do not see much sinus symptoms for that as his Homans sign is negative but in case if condition changes a leg ultrasound need to be done. We will keep him on Lovenox for DVT prophylaxis. He has a wheezing in both lungs and there do her labs will be started. Strongly recommended to quit his smoking.
[2017-04-04 23:47] LABS: Hematocrit 23.5 % (37.5-50.1); Hemoglobin 7.2 g/dL (12.9-16.9)
[2017-04-05] MEDS: Pantoprazole 40 MG VIAL IVP SCH ×3 (01:19→20:21)
[2017-04-05] MEDS: Ipratropium/Albuterol Neb 3 ML IH SCH ×4 (04:00→22:46)
[2017-04-05] MEDS: Vancomycin 1,500 MG in D5% in Water 250 ML IVPB SCH ×2 (05:23→17:48)
[2017-04-05 05:39] LABS: Red Cell Distribution Width 18.6 % (11.5-14.5)
[2017-04-05 05:41] LABS: Basophils % 0.1 %; Eosinophils % 0.3 %; Immature Granulocytes % 1.3 % (0-4); Immature Platelets 5.9 % (1.1-6.1); Lymphocytes # 0.3 K/mcL (0.6-4.6); Lymphocytes % 2.3 %; Mean Corpuscular HGB Conc 30.4 g/dL (31.6-35.5); Mean Corpuscular Hemoglobin 28.7 pg (28.0-33.3); Mean Corpuscular Volume 94.3 fL (83.0-100.0); Monocytes # 1.1 K/mcL (0.0-1.3); Monocytes % 7.5 %; Neutrophils # 12.5 K/mcL (1.6-8.9); Red Blood Count 2.44 M/mcL (4.19-5.50); Segmented Neutrophils % 88.5 %
[2017-04-05 05:44] LABS: Hemoglobin A1C 5.3 %
[2017-04-05 05:52] LABS: Albumin 2.7 g/dL (3.5-5.0); Albumin/Globulin Ratio 0.9 (1.1-2.2); Bilirubin,Total 0.9 mg/dL (0.2-1.2); Calcium 8.2 mg/dL (8.6-10.8); Chol/HDL Ratio 2.1 (0-4.9); Potassium 3.7 mEq/L (3.5-4.5); Total Protein 5.7 g/dL (6.0-8.3)
[2017-04-05 05:57] LABS: INR 1.4; Prothrombin Time 15.1 Seconds (9.4-12.1)
[2017-04-05 05:59] LABS: Activated Partial Thrombo Time 30.7 Seconds (26.0-36.0)
[2017-04-05 06:31] LABS: Platelet Count 87 K/mcL (140-400)
[2017-04-05] MEDS: Renal Vitamin 1 MG CAPSULE PO SCH (08:34)
[2017-04-05] MEDS: Furosemide 40 MG/4 ML VIAL IVP SCH ×2 (08:34→17:48)
[2017-04-05] MEDS: Cholecalciferol (D-3) 1,000 UNIT TABLET PO SCH (08:34)
[2017-04-05] MEDS: amLODIPine 5 MG TABLET PO SCH ×2 (08:34→20:21)
[2017-04-05] MEDS: Acetaminophen 325 MG TABLET PO PRN ×2 (08:48→20:20)
[2017-04-05] MEDS ORDERED: Aspirin 81 MG TAB.CHEW PO SCH (09:00)
[2017-04-05] MEDS ORDERED: *HR* Rivaroxaban 15 MG TABLET PO SCH (09:00)
[2017-04-05 09:31] LABS: Hematocrit 24.8 % (37.5-50.1); Hemoglobin 7.6 g/dL (12.9-16.9)
--- NOTE | 2017-04-05 10:16 | Internal Med Progress Note ---
Date of Encounter: 04/05/17 Time of Encounter: 09:35 - Assessment and plan (1) Cellulitis Current Visit: Yes Status: Acute Assessment and plan: Patient presents with bilateral pedal and lower extremity edema and erythema. Patient states that he has not been able to bear weight on either of his legs for last 2-3 days due to the pain. He reports he has a history of venous reflux in his lower extremities and has been seeing the wound care clinic. He states that they thought that they had solved the problem, however it has returned now. Patient was admitted with white count of 17.3, has decreased to 14.1 today. Patient is being treated with vancomycin IV with pharmacy dosing due to chronic renal disease, and Zosyn. Patient has no fever, no tachycardia, no tachypnea, he is normotensive. Lactic acid was negative. Wound care consult is in Blood cultures 2 ordered and pending Continue to monitor patient condition, labs, and vital signs. Qualifiers: Site of cellulitis: extremity Site of cellulitis of extremity: lower extremity Laterality: left Qualified Code(s): L03.116 - Cellulitis of left lower limb (2) Peripheral vascular disease Current Visit: Yes Status: Chronic Assessment and plan: Per patient history. Plan as above. (3) Ejmdk-cj-joskzal kidney injury Current Visit: Yes Status: Acute Assessment and plan: Renal function improve mildly overnight. Creatinine is 2.26 today, GFR is 28. This actually appears to be significantly lower the patient's baseline of 3.22 and higher. GFR baseline appears to be in mid teens to mid 20s. Patient states that he does not see nephrology and only follows with primary care. Gentle IV hydration with 0.9 at 50 mL's per hour Avoid nephrotoxins Continue to monitor labs Qualifiers: Acute renal failure type: unspecified Chronic kidney disease stage: stage 3 (moderate) Qualified Code(s): N17.9 - Acute kidney failure, unspecified; N18.3 - Chronic kidney disease, stage 3 (moderate) (4) Anemia Current Visit: Yes Status: Chronic Assessment and plan: Uncertain etiology for anemia at this time. Patient does report dark tarry stools recently, stool occult blood is pending. Patient was admitted recently and found to have iron deficiency anemia with an iron of 19% saturation of 5%, patient is unsure of his home medications at this time and is unsure if he is taking iron supplements at home. Anemia also could be due to chronic disease, stage 3-4 renal failure. Hemoglobin 7.0 this morning, it was drawn again later increased to 7.6. Hematocrit is low at 24.8, as well. Ordered to transfuse as put in by the ER physician yesterday, however it was not completed. Blood bank orders are already completed and repeat order for transfusion has been entered. We will redraw labs after transfusion is complete. Xarelto and aspirin have been stopped. Stool occult blood is ordered and pending, bedside guaiac positive. Consult to Dr. Reyes for scope Transfuse 1 unit PRBCs Monitor labs Iron studies, folate, B12 ordered and pending Qualifiers: Anemia type: due to chronic kidney disease Chronic kidney disease stage: stage 4 (severe) Qualified Code(s): N18.4 - Chronic kidney disease, stage 4 ( severe); D63.1 - Anemia in chronic kidney disease; D63.1 - Anemia in chronic kidney disease (5) CAD (coronary artery disease) Current Visit: Yes Status: Chronic Assessment and plan: Patient denies chest pain. Continue telemetry. Xarelto and aspirin have been stopped due to anemia requiring transfusion of PRBCs. Continue Lipitor and beta samanta. Qualifiers: Coronary Disease-Associated Artery/Lesion type: [place] artery [place] vs. transplanted heart: [place] heart Associated angina: angina presence unspecified Qualified Code(s): I25.10 - Atherosclerotic heart disease of [place] coronary artery without angina pectoris (6) HLD (hyperlipidemia) Current Visit: Yes Status: Chronic Assessment and plan: Chronic. Continue Lipitor. Lipid panel is within normal limits. Qualifiers: Hyperlipidemia type: pure hypercholesterolemia Qualified Code(s): E78.00 - Pure hypercholesterolemia, unspecified; E78.0 - Pure hypercholesterolemia (7) HTN (hypertension) Current Visit: Yes Status: Chronic Assessment and plan: Blood pressure has been well controlled in the hospital. Continue home medications. Continue telemetry and to monitor vital signs. Qualifiers: Hypertension type: essential hypertension Qualified Code(s): I10 - Essential (primary) hypertension (8) DVT prophylaxis Current Visit: Yes Status: Acute Assessment and plan: Due to anemia, Xarelto and aspirin have been stopped. Due to pain, edema, erythema, cellulitis to bilateral lower extremities calf pumps, foot pumps, and or OLGA LIDIA hose are not appropriate at this time. We will continue to monitor patient's condition and apply either pharmacologic or mechanical DVT prophylaxis as soon as feasible and appropriate. (9) COPD (chronic obstructive pulmonary disease) Current Visit: Yes Status: Chronic Assessment and plan: No acute exacerbation at this time. Continue telemetry, pulse ox with vital signs. Continue albuterol inhaler, DuoNeb nebs scheduled. Qualifiers: COPD type: unspecified COPD Qualified Code(s): J44.9 - Chronic obstructive pulmonary disease, unspecified (10) Thrombocytopenia Current Visit: Yes Status: Acute Assessment and plan: Patient has a significant decrease in platelets over the last month. During her last admission in February, platelets were 169 and within normal limits, today they are 87. Xarelto has been stopped. Will continue to monitor. - Time Spent With Patient less than 15 minutes - Subjective Interval history: Patient was seen and assessed at bedside at 9:35 AM. Patient is alert and oriented. He reports a productive cough sometimes with yellow sputum. He is a smoker, he states he smokes less than 1 pack per day and is not interested in smoking cessation. Patient does have rails throughout posterior lung wills. Patient also has had a significant drop in hemoglobin and platelets, he is aware that we are going to stop his Xarelto and ASA. Patient denies ever having thrombocytopenia or anemia in the past. He also states that he does not see a occupational health rn. He also denies any past medical history of cardiac disease or congestive heart failure. - Constitutional Vitals: Temp Pulse Resp BP Pulse Ox 98.6 F 87 15 145/70 95 04/05/17 07:00 04/05/17 07:00 04/05/17 07:00 04/05/17 07:00 04/05/17 07:00 General appearance: Present: cooperative, disheveled, A&O X 3, pleasant, no acute distress, answers questions appropriately - Head Head exam: Present: atraumatic, normal inspection, normocephalic - Eye Eye exam: Present: normal appearance, conjuntiva pink, sclera anicteric - Neck Neck exam general surgery: Present: supple, trachea midline. Absent: lymphadenopathy, tenderness - Respiratory Respiratory exam: Present: CTAB. Absent: accessory muscle use, chest wall tenderness, rales, respiratory distress, rhonchi, wheezes - Cardiovascular Cardiovascular exam: Present: RRR, +S1, +S2. Absent: diastolic murmur, gallop, rubs, systolic murmur - GI/Abdominal GI/Abdominal exam: Present: normal bowel sounds, soft, no peritoneal signs. Absent: distended, hepatomegaly, tenderness - Extremities Exam Extremities exam: Present: pedal edema, warm, radial pulses palpable and symmetrical. Absent: calf tenderness, cyanotic, normal capillary refill, normal inspection - Expanded Lower Extremities Exam Lower Leg exam: Present: erythema, swelling, tenderness. Absent: normal inspection - Neurological Exam Neurological exam: Present: alert, oriented X3, no focal deficits. Absent: facial droop, speech deficit - Skin Skin exam: Present: dry, intact, normal color, warm. Absent: rash Internal Medicine: Result - Labs CBC & Chem 7: 04/05/17 09:20 04/05/17 05:20 Labs: Short CBC 04/04/17 04/05/17 04/05/17 Range/Units 23:35 05:20 09:20 WBC 14.1 H (4.3-11.1) K/mcL Hgb 7.2 L 7.0 L 7.6 L (12.9-16.9) g/dL Hct 23.5 L 23.0 L 24.8 L (37.5-50.1) % Plt Count 87 L (140-400) K/mcL Neutrophils # 12.5 H (1.6-8.9) K/mcL BMP 04/05/17 05:20 Sodium 139 Potassium 3.7 Chloride 109 Carbon Dioxide 22 BUN 56 H Creatinine 2.26 H Glucose 98 Calcium 8.2 L Cardiac Enzymes 04/04/17 Range/Units 23:35 Troponin I 0.02 (0-0.03) ng/mL Liver Function 04/05/17 Range/Units 05:20 Total Bilirubin 0.9 (0.2-1.2) mg/dL AST 10 (5-34) Units/L ALT 31 (0-55) Units/L Alkaline Phosphatase 65 (38-126) Units/L Albumin 2.7 L (3.5-5.0) g/dL - ABG Interpretation ABG results: PT/INR, D-dimer PT 15.1 Seconds (9.4-12.1) H 04/05/17 05:20 Consult Discharge Plan - Plan Referrals: Benoit Cosme Jr, MD [Primary Care Provider] -
[2017-04-05 10:42] LABS: % Iron Saturation 4 % (20-55); Iron 8 mcg/dL (65-175); Transferrin 156 mg/dL (174-364)
[2017-04-05 11:18] LABS: Folate 7.6 ng/mL (7.0-31.4)
[2017-04-05] MEDS ORDERED: 0.9 % Sodium Chloride 250 ML ONE (13:16)
--- NOTE | 2017-04-05 15:02 | General Surgery Consult Note ---
Date of Encounter: 04/05/17 Time of Encounter: 14:58 Assessment and Plan (1) Anemia Current Visit: Yes Status: Chronic I explained to the patient that given the fact that he has anemia and has heme positive stool I think it would be reasonable to consider an EGD and colonoscopy , particularly given his mobility issues and the fact he has not had a colonoscopy in 10 years. It is likely that his source of anemia may be multifactorial in nature. Since he has taken Xarelto this morning we will have to wait at least 2 days before proceeding with the procedure. I will go ahead and start a clear liquid diet and start bowel prep for today to see if we can start clear his bowels to prepare him for colonoscopy and EGD for Friday. Qualifiers: Anemia type: due to chronic kidney disease Chronic kidney disease stage: stage 4 (severe) Qualified Code(s): N18.4 - Chronic kidney disease, stage 4 ( severe); D63.1 - Anemia in chronic kidney disease; D63.1 - Anemia in chronic kidney disease History of Present Illness Consult date: 04/05/17 Requesting physician: Monique Orosco History of present illness: The patient is a 81-year-old male with a past medical history significant for atrophic fibrillation, hypertension, coronary artery disease, history carotid stenosis status post carotid endarterectomy who presents to [facility] secondary to lower extremity edema and cellulitis. During his evaluation he was discovered to have a anemia and a rectal examination demonstrated heme positive stool. The patient denies any diarrhea but admits to constipation with bowel movements 2-3 times per week. He has not visualized any rectal bleeding. He states he has been having some nausea that seems to occur in the morning at the same time that he develops a "knot" in the lower abdomen with some abdominal pain. This pain resolves and he does have episodes of dry heaving without hematemesis. This is been going on for the past month and he denies any heartburn or reflux symptoms. As colonoscopy was in [address] Cosme. Past Med Surg Social Fam HX - Past Medical History Medical history: atrial fibrillation, coronary artery disease, hyperlipidemia, hypertension, renal disease Psychiatric history: no psych history - Past Surgical History Surgical History: carotid endarterectomy (Right), orthopedic, other (Left knee) , other - Social History Smoking Status: Current every day smoker Packs per day: 1/2 PPD Smokeless Tobacco Status: No Alcohol use: occasionally Drug use: none - Family History Father Race: Family Member Ethnicity: Non- Living Status: Age at : 91 Cause of : Old age Hx Family Cardiac Disorders: No Hx Family Respiratory Disorders: No Hx Family Cancer: No Hx Family GI Disorders: No Hx Family Genitourinary Disorders: No Hx Family Endocrine Disorder: No Hx Family Musculoskeletal Disorders: Yes (RA) Hx Family Neuromuscular Disorders: No Hx Family Neurologic Disorders: No Hx Family HEENT Disorders: No Hx Family Autoimmune Disorders: No Hx Family Reproductive Disorders: No Hx Family Psychosocial Disorders: No Hx Family Medical Disorders: No Mother Race: Family Member Ethnicity: Non- Living Status: Age at : 70 Cause of : Heart failure Hx Family Cardiac Disorders: Yes (Heart Murmur) Hx Family Respiratory Disorders: No Hx Family Cancer: No Hx Family GI Disorders: No Hx Family Genitourinary Disorders: No Hx Family Endocrine Disorder: No Hx Family Musculoskeletal Disorders: Yes (RA) Hx Family Neuromuscular Disorders: No Hx Family Neurologic Disorders: No Hx Family HEENT Disorders: No Hx Family Autoimmune Disorders: No Hx Family Reproductive Disorders: No Hx Family Psychosocial Disorders: No Hx Family Medical Disorders: No Brother History Unknown: Yes Race: Family Member Ethnicity: Non- Living Status: Still Living Sister Race: Family Member Ethnicity: Non- Living Status: Age at : 82 Cause of : Heart failure Hx Family Cardiac Disorders: Yes (HF) Hx Family Musculoskeletal Disorders: Yes (Arthritis) Son Race: Family Member Ethnicity: Non- Living Status: Still Living Hx Family Cardiac Disorders: Yes Medications and Allergies Aspirin 81 mg PO DAILY 11/01/15 [History] Cholecalciferol (D-3) [Vitamin D] 2,000 unit PO DAILY 11/01/15 [History] Metoprolol [Lopressor] 50 mg PO BID #60 tablet 11/02/15 [Rx] Acetaminophen [Tylenol] 1,000 mg PO BID 08/16/16 [History] Gluc Alvarez/Chondro Alvarez A/Vit C/Mn [Glucosamine Chondroitin Tab] 1 each PO DAILY [History] Rivaroxaban [Xarelto] 15 mg PO DAILY 08/16/16 [History] Albuterol Sulfate [Proair Hfa] 2 puff IH Q4H PRN 03/17/17 [History] Atorvastatin [Lipitor] 40 mg PO HS 03/17/17 [History] amLODIPine [Norvasc] 5 mg PO BID 03/17/17 [History] Ipratropium/Albuterol Neb [Duoneb] 3 ml IH Q6HR #120 inhsol 03/19/17 [Rx] Furosemide [Lasix] 20 mg PO DAILY 04/04/17 [History] 3 Allergy/AdvReac Type Severity Reaction Status Date / Time No Known Allergies Allergy Verified 11/01/15 00:22 Review of Systems All systems PM: reviewed and no additional remarkable complaints except as stated All systems PM: A 10-system review of systems was performed and is negative for pertinent findings except as documented above in the HPI. General Surgery Exam Initial Vital Signs Temp Pulse Resp BP Pulse Ox 97.8 F 85 18 117/61 100 04/04/17 12:50 04/04/17 12:50 04/04/17 12:50 04/04/17 12:50 04/04/17 12:50 - Eyes PERRL, normal ocular movement - Respiratory normal expansion, normal respiratory effort wheezing: bilateral - Abdomen Abdomen general surgery: Present: bowel sounds present (obese), soft, non tender - Musculoskeletal Present: other (Normal 2+ pitting edema in the lower extremity. Muscularis noted in lower extremity.) - Psychiatric Psychiatric general surgery: Present: A&Ox3 Exam Initial Vital Signs Temp Pulse Resp BP Pulse Ox 97.8 F 85 18 117/61 100 04/04/17 12:50 04/04/17 12:50 04/04/17 12:50 04/04/17 12:50 04/04/17 12:50 Results - Labs 04/06/17 06:40 04/06/17 06:40 Abnormal lab results WBC 14.1 K/mcL (4.3-11.1) H 04/05/17 05:20 RBC 2.44 M/mcL (4.19-5.50) L 04/05/17 05:20 Hgb 7.6 g/dL (12.9-16.9) L 04/05/17 09:20 Hct 24.8 % (37.5-50.1) L 04/05/17 09:20 MCHC 30.4 g/dL (31.6-35.5) L 04/05/17 05:20 RDW 18.6 % (11.5-14.5) H 04/05/17 05:20 Plt Count 87 K/mcL (140-400) L 04/05/17 05:20 Neutrophils # 12.5 K/mcL (1.6-8.9) H 04/05/17 05:20 Lymphocytes # 0.3 K/mcL (0.6-4.6) L 04/05/17 05:20 PT 15.1 Seconds (9.4-12.1) H 04/05/17 05:20 BUN 56 mg/dL (8-26) H 04/05/17 05:20 Creatinine 2.26 mg/dL (0.72-1.25) H 04/05/17 05:20 Est GFR ( Amer) 34 (> 60) L 04/05/17 05:20 Est GFR (Non-Af Amer) 28 (> 60) L 04/05/17 05:20 Calculated Osmolality 303 (280-300) H 04/05/17 05:20 Calcium 8.2 mg/dL (8.6-10.8) L 04/05/17 05:20 Iron 8 mcg/dL (65-175) L 04/05/17 09:20 % Saturation 4 % (20-55) L 04/05/17 09:20 Transferrin 156 mg/dL (174-364) L 04/05/17 09:20 Direct Bilirubin 0.6 mg/dL (0.0-0.5) H 04/04/17 14:51 B-Natriuretic Peptide 132 pg/mL (0-100) H 04/05/17 09:20 Serum Total Protein 5.7 g/dL (6.0-8.3) L 04/05/17 05:20 Albumin 2.7 g/dL (3.5-5.0) L 04/05/17 05:20 Albumin/Globulin Ratio 0.9 (1.1-2.2) L 04/05/17 05:20 Urine Microscopic RBC 3-5 per hpf (0-3) H 04/04/17 18:30 Diabetes panel 04/05/17 04/05/17 Range/Units 05:20 05:20 Sodium 139 (136-145) mEq/L Potassium 3.7 (3.5-4.5) mEq/L Chloride 109 (98-109) mEq/L Carbon Dioxide 22 (19-29) mEq/L BUN 56 H (8-26) mg/dL Creatinine 2.26 H (0.72-1.25) mg/dL Glucose 98 (70-99) mg/dL Hemoglobin A1c 5.3 ( - 5.6) % Calcium 8.2 L (8.6-10.8) mg/dL AST 10 (5-34) Units/L ALT 31 (0-55) Units/L Alkaline Phosphatase 65 (38-126) Units/L Albumin 2.7 L (3.5-5.0) g/dL Triglycerides 52 (< 150) mg/dL HDL Cholesterol 40 (40-59) mg/dL Calcium panel 04/05/17 Range/Units 05:20 Calcium 8.2 L (8.6-10.8) mg/dL Albumin 2.7 L (3.5-5.0) g/dL Pituitary panel 04/05/17 Range/Units 05:20 Sodium 139 (136-145) mEq/L Potassium 3.7 (3.5-4.5) mEq/L Chloride 109 (98-109) mEq/L Carbon Dioxide 22 (19-29) mEq/L BUN 56 H (8-26) mg/dL Creatinine 2.26 H (0.72-1.25) mg/dL Glucose 98 (70-99) mg/dL Calcium 8.2 L (8.6-10.8) mg/dL Adrenal panel 04/05/17 Range/Units 05:20 Sodium 139 (136-145) mEq/L Potassium 3.7 (3.5-4.5) mEq/L Chloride 109 (98-109) mEq/L Carbon Dioxide 22 (19-29) mEq/L BUN 56 H (8-26) mg/dL Creatinine 2.26 H (0.72-1.25) mg/dL Glucose 98 (70-99) mg/dL Calcium 8.2 L (8.6-10.8) mg/dL Total Bilirubin 0.9 (0.2-1.2) mg/dL AST 10 (5-34) Units/L ALT 31 (0-55) Units/L Alkaline Phosphatase 65 (38-126) Units/L Albumin 2.7 L (3.5-5.0) g/dL All other labs normal. Consult Discharge Plan - Plan Referrals: Benoit Cosme Jr, MD [Primary Care Provider] -
[2017-04-05] MEDS ORDERED: Polyethylene Glycol 3350 255 GM POWDER PO ONE (15:04)
[2017-04-06] MEDS: Ipratropium/Albuterol Neb 3 ML IH SCH ×4 (04:17→21:38)
[2017-04-06] MEDS: Acetaminophen 325 MG TABLET PO PRN (04:28)
[2017-04-06 06:58] LABS: Basophils % 0.1 %; Lymphocytes % 4.6 %
[2017-04-06 07:00] LABS: Eosinophils # 0.1 K/mcL (0.0-0.6); Eosinophils % 0.7 %; Hematocrit 22.9 % (37.5-50.1); Hemoglobin 7.3 g/dL (12.9-16.9); Immature Granulocytes % 0.5 % (0-4); Immature Platelets 5.4 % (1.1-6.1); Lymphocytes # 0.5 K/mcL (0.6-4.6); Mean Corpuscular HGB Conc 31.9 g/dL (31.6-35.5); Mean Corpuscular Hemoglobin 29.4 pg (28.0-33.3); Mean Corpuscular Volume 92.3 fL (83.0-100.0); Mean Platelet Volume 12.3 fL (9.4-12.4); Monocytes # 0.8 K/mcL (0.0-1.3); Neutrophils # 10.2 K/mcL (1.6-8.9); Red Blood Count 2.48 M/mcL (4.19-5.50); Red Cell Distribution Width 17.8 % (11.5-14.5); Segmented Neutrophils % 87.1 %
[2017-04-06 07:13] LABS: Albumin 2.4 g/dL (3.5-5.0); Albumin/Globulin Ratio 0.8 (1.1-2.2); Calcium 8.1 mg/dL (8.6-10.8); Globulin 3.1 g/dL (2.4-3.5); Potassium 3.5 mEq/L (3.5-4.5); Total Protein 5.5 g/dL (6.0-8.3)
[2017-04-06 07:24] LABS: Platelet Count 80 K/mcL (140-400)
[2017-04-06] MEDS: Vancomycin 1,500 MG in D5% in Water 250 ML IVPB SCH (07:43)
[2017-04-06] MEDS: Pantoprazole 40 MG VIAL IVP SCH ×2 (08:12→20:46)
[2017-04-06] MEDS: amLODIPine 5 MG TABLET PO SCH ×2 (08:12→20:46)
[2017-04-06] MEDS: Furosemide 40 MG/4 ML VIAL IVP SCH ×2 (08:12→17:43)
[2017-04-06] MEDS: Renal Vitamin 1 MG CAPSULE PO SCH (08:13)
[2017-04-06] MEDS: Cholecalciferol (D-3) 1,000 UNIT TABLET PO SCH (08:13)
--- NOTE | 2017-04-06 11:09 | Electrocardiograph Report ---
[address] [place], [place] [address] Test Date: 2017-04-04 Pat Name: George Mcqueen Department: 103 Room: 3B Gender: M [employer] Work[employer]: TMR : 1935 Requested By: Adolfo Nava Order Number: [id number] Reading MD: Jeremiah Chavez Measurements Intervals [place] Rate: 72 P: AR: 0 QRS: 24 QRSD: 161 T: 4 QT: 416 QTc: 440 Interpretive Statements ATRIAL FIBRILLATION RIGHT BUNDLE BRANCH BLOCK Electronically Signed On 04-06-2017 11:07:22 EDT by Jeremiah Chavez
[2017-04-06] MEDS ORDERED: Polyethylene Glycol 3350 255 GM POWDER PO ONE (12:23)
--- NOTE | 2017-04-06 12:26 | General Surgery Progress Note ---
Date of Encounter: 04/06/17 Time of Encounter: 12:24 - Assessment and Plan (1) Anemia Current Visit: Yes Status: Chronic Given the stability of the patient's hemoglobin and the fact that he is not having any abdominal pain or discomfort or symptoms I think we can continue to plan for likely EGD and colonoscopy tomorrow. He has not had any bowel movements and he has almost completed his bowel prep from yesterday. Will reorder a bowel prep today. Qualifiers: Anemia type: due to chronic kidney disease Chronic kidney disease stage: stage 4 (severe) Qualified Code(s): N18.4 - Chronic kidney disease, stage 4 ( severe); D63.1 - Anemia in chronic kidney disease; D63.1 - Anemia in chronic kidney disease Subjective Patient reports: no new complaints, other (Denies any abdominal pain. No bowel movements at this time. No nausea or vomiting.) Objective Vital Signs - Last 8 Hours Temp Pulse Resp BP Pulse Ox 04/06/17 10:47 98.3 F 75 16 115/62 95 04/06/17 10:17 16 91 04/06/17 07:57 98.6 F 79 16 117/65 91 Intake and Output 04/05/17 04/06/17 04/06/17 23:59 07:59 15:59 Intake Total 350 / 350 840 / 840 Output Total 900 / 900 Balance -550 / -550 840 / 840 Intake: Oral 840 / 840 Blood Product 350 / 350 Rbcs Leuko Poor As-1 Unit 350 / 350 [id number] Output: Urine 900 / 900 Other: Meal Breakfast - General physical appearance well developed, well nourished, no distress - Abdomen Abdomen: Present: bowel sounds present, soft, non tender - Labs 04/06/17 06:40 04/06/17 06:40 Diabetes panel 04/06/17 Range/Units 06:40 Sodium 138 (136-145) mEq/L Potassium 3.5 (3.5-4.5) mEq/L Chloride 107 (98-109) mEq/L Carbon Dioxide 23 (19-29) mEq/L BUN 50 H (8-26) mg/dL Creatinine 2.37 H (0.72-1.25) mg/dL Glucose 109 H (70-99) mg/dL Calcium 8.1 L (8.6-10.8) mg/dL AST 9 (5-34) Units/L ALT 23 (0-55) Units/L Alkaline Phosphatase 59 (38-126) Units/L Albumin 2.4 L (3.5-5.0) g/dL Calcium panel 04/06/17 Range/Units 06:40 Calcium 8.1 L (8.6-10.8) mg/dL Albumin 2.4 L (3.5-5.0) g/dL Pituitary panel 04/06/17 Range/Units 06:40 Sodium 138 (136-145) mEq/L Potassium 3.5 (3.5-4.5) mEq/L Chloride 107 (98-109) mEq/L Carbon Dioxide 23 (19-29) mEq/L BUN 50 H (8-26) mg/dL Creatinine 2.37 H (0.72-1.25) mg/dL Glucose 109 H (70-99) mg/dL Calcium 8.1 L (8.6-10.8) mg/dL Adrenal panel 04/06/17 Range/Units 06:40 Sodium 138 (136-145) mEq/L Potassium 3.5 (3.5-4.5) mEq/L Chloride 107 (98-109) mEq/L Carbon Dioxide 23 (19-29) mEq/L BUN 50 H (8-26) mg/dL Creatinine 2.37 H (0.72-1.25) mg/dL Glucose 109 H (70-99) mg/dL Calcium 8.1 L (8.6-10.8) mg/dL Total Bilirubin 1.0 (0.2-1.2) mg/dL AST 9 (5-34) Units/L ALT 23 (0-55) Units/L Alkaline Phosphatase 59 (38-126) Units/L Albumin 2.4 L (3.5-5.0) g/dL Consult Discharge Plan - Plan Referrals: Benoit Cosme Jr, MD [Primary Care Provider] -
[2017-04-06] MEDS: 0.9 % Sodium Chloride 1,000 ML IVC SCH (14:14)
--- NOTE | 2017-04-06 17:24 | Internal Med Progress Note ---
Date of Encounter: 04/06/17 Time of Encounter: 13:45 - Assessment and plan (1) Cellulitis Current Visit: Yes Status: Acute Assessment and plan: Patient presents with bilateral pedal and lower extremity edema and erythema. Patient states that he has not been able to bear weight on either of his legs for last 2-3 days due to the pain. He reports he has a history of venous reflux in his lower extremities and has been seeing the wound care clinic. He states that they thought that they had solved the problem, however it has returned now. Patient was admitted with white count of 17.3, has decreased to 11.7 today. Patient is being treated with vancomycin IV with pharmacy dosing due to chronic renal disease, and Zosyn. Patient has no fever, no tachycardia, no tachypnea, he is normotensive. Lactic acid was negative. Wound care consult is in Blood cultures were negative 2. Continue to monitor patient condition, labs, and vital signs. Qualifiers: Site of cellulitis: extremity Site of cellulitis of extremity: lower extremity Laterality: left Qualified Code(s): L03.116 - Cellulitis of left lower limb (2) Peripheral vascular disease Current Visit: Yes Status: Chronic Assessment and plan: Per patient history. Plan as above. Patient to see wound care tomorrow. (3) Qqelh-[id number] kidney injury Current Visit: Yes Status: Acute Assessment and plan: Creatinine is 2.37 today, GFR is 27. This actually appears to be significantly lower the patient's baseline of 3.22 and higher. GFR baseline appears to be in mid teens to mid 20s. Patient states that he does not see nephrology and only follows with primary care. Gentle IV hydration with 0.9 at 50 mL's per hour Avoid nephrotoxins, decrease Lasix dose Continue to monitor labs Consider nephrology consultation tomorrow. Qualifiers: Acute renal failure type: unspecified Chronic kidney disease stage: stage 3 (moderate) Qualified Code(s): N17.9 - Acute kidney failure, unspecified; N18.3 - Chronic kidney disease, stage 3 (moderate) (4) Anemia Current Visit: Yes Status: Chronic Assessment and plan: Patient does report dark tarry stools recently, stool occult blood is pending. Patient was admitted recently and found to have iron deficiency anemia with an iron of 19 saturation of 5%, patient is unsure of his home medications at this time and is unsure if he is taking iron supplements at home. During this visit , iron level is 8, percent saturation is 4. Anemia also could be due to chronic disease, stage 3-4 renal failure. Hemoglobin 7.0 this morning, it was drawn again later increased to 7.6. Hematocrit is low at 24.8, as well. Ordered to transfuse as put in by the ER physician yesterday, however it was not completed. Blood bank orders are already completed and repeat order for transfusion has been entered. Hemoglobin 7.3 today after transfusion. Xarelto and aspirin have been stopped. Stool occult blood is ordered and pending, bedside guaiac positive. Consult to Dr. Reyes for scope Prepare to transfuse if hemoglobin less than 8 and symptomatic. Monitor labs Ferrous sulfate by mouth twice a day. Qualifiers: Anemia type: due to chronic kidney disease Chronic kidney disease stage: stage 4 (severe) Qualified Code(s): N18.4 - Chronic kidney disease, stage 4 ( severe); D63.1 - Anemia in chronic kidney disease; D63.1 - Anemia in chronic kidney disease (5) CAD (coronary artery disease) Current Visit: Yes Status: Chronic Assessment and plan: Patient denies chest pain. Continue telemetry. Xarelto and aspirin have been stopped due to anemia requiring transfusion of PRBCs. Continue Lipitor and beta samanta. Transfuse PRBCs if hemoglobin less than 8 patient symptomatic. Qualifiers: Coronary Disease-Associated Artery/Lesion type: [place] artery [place] vs. transplanted heart: [place] heart Associated angina: angina presence unspecified Qualified Code(s): I25.10 - Atherosclerotic heart disease of [place] coronary artery without angina pectoris (6) HLD (hyperlipidemia) Current Visit: Yes Status: Chronic Assessment and plan: Chronic. Continue Lipitor. Lipid panel is within normal limits. Qualifiers: Hyperlipidemia type: pure hypercholesterolemia Qualified Code(s): E78.00 - Pure hypercholesterolemia, unspecified; E78.0 - Pure hypercholesterolemia (7) HTN (hypertension) Current Visit: Yes Status: Chronic Assessment and plan: Blood pressure has been well controlled in the hospital. Continue home medications. Continue telemetry and to monitor vital signs. Qualifiers: Hypertension type: essential hypertension Qualified Code(s): I10 - Essential (primary) hypertension (8) DVT prophylaxis Current Visit: Yes Status: Acute Assessment and plan: Due to anemia, Xarelto and aspirin have been stopped. Due to pain, edema, erythema, cellulitis to bilateral lower extremities calf pumps, foot pumps, and or OLGA LIDIA hose are not appropriate at this time. We will continue to monitor patient's condition and apply either pharmacologic or mechanical DVT prophylaxis as soon as feasible and appropriate. (9) COPD (chronic obstructive pulmonary disease) Current Visit: Yes Status: Chronic Assessment and plan: No acute exacerbation at this time. Continue telemetry, pulse ox with vital signs. Continue albuterol inhaler, DuoNeb nebs scheduled. Qualifiers: COPD type: unspecified COPD Qualified Code(s): J44.9 - Chronic obstructive pulmonary disease, unspecified (10) Thrombocytopenia Current Visit: Yes Status: Acute Assessment and plan: Patient has a significant decrease in platelets over the last month. During his last admission in February, platelets were 169 and within normal limits, today they are 87. Xarelto has been stopped. Will continue to monitor. Consult hematology oncology. Patient may need outpatient follow-up. - Time Spent With Patient less than 15 minutes - Subjective Interval history: Patient was seen and assessed at bedside at 1345 AM. Patient is alert and oriented. He reports right hand pain, and left fifth digit finger. He says he has had this pain for 20 years and he normally takes Tylenol for it. He denies need for any other pain medication. He has adequate range of motion to hands. He denies any abdominal pain, nausea, vomiting, diarrhea. He apparently did not start the bowel prep on time., Surgeon restarted it again today.. EGD and colonoscopy tomorrow. - Constitutional Vitals: Temp Pulse Resp BP Pulse Ox 99.2 F 80 16 126/66 98 04/06/17 15:47 04/06/17 15:47 04/06/17 16:05 04/06/17 15:47 04/06/17 16:05 General appearance: Present: cooperative, disheveled, A&O X 3, no acute distress , answers questions appropriately. Absent: pleasant - Head Head exam: Present: atraumatic, normal inspection, normocephalic - Eye Eye exam: Present: normal appearance, conjuntiva pink, sclera anicteric - Neck Neck exam general surgery: Present: normal inspection, supple, trachea midline. Absent: lymphadenopathy, tenderness - Respiratory Respiratory exam: Present: CTAB. Absent: accessory muscle use, chest wall tenderness, rales, respiratory distress, rhonchi, wheezes - Cardiovascular Cardiovascular exam: Present: RRR, +S1, +S2. Absent: diastolic murmur, gallop, rubs, systolic murmur - GI/Abdominal GI/Abdominal exam: Present: normal bowel sounds, soft, no peritoneal signs. Absent: distended, hepatomegaly, pulsatile mass, tenderness - Extremities Exam Extremities exam: Present: pedal edema, tenderness, warm, radial pulses palpable and symmetrical. Absent: calf tenderness, cyanotic, normal inspection - Neurological Exam Neurological exam: Present: alert, oriented X3, no focal deficits - Skin Skin exam: Present: dry, intact, pallor, warm. Absent: rash Internal Medicine: Result - Labs CBC & Chem 7: 04/06/17 06:40 04/06/17 06:40 Labs: Short CBC 04/06/17 Range/Units 06:40 WBC 11.7 H (4.3-11.1) K/mcL Hgb 7.3 L (12.9-16.9) g/dL Hct 22.9 L (37.5-50.1) % Plt Count 80 L (140-400) K/mcL Neutrophils # 10.2 H (1.6-8.9) K/mcL BMP 04/06/17 06:40 Sodium 138 Potassium 3.5 Chloride 107 Carbon Dioxide 23 BUN 50 H Creatinine 2.37 H Glucose 109 H Calcium 8.1 L Liver Function 04/06/17 Range/Units 06:40 Total Bilirubin 1.0 (0.2-1.2) mg/dL AST 9 (5-34) Units/L ALT 23 (0-55) Units/L Alkaline Phosphatase 59 (38-126) Units/L Albumin 2.4 L (3.5-5.0) g/dL - ABG Interpretation ABG results: PT/INR, D-dimer PT 15.1 Seconds (9.4-12.1) H 04/05/17 05:20 Consult Discharge Plan - Plan Referrals: Benoit Cosme Jr, MD [Primary Care Provider] -
[2017-04-06 18:14] LABS: Hematocrit 25.8 % (37.5-50.1); Hemoglobin 8.1 g/dL (12.9-16.9)
[2017-04-06] MEDS: Vancomycin 1 EACH in D5% in Water 250 ML IVPB SCH (18:42)
[2017-04-07] MEDS: Ipratropium/Albuterol Neb 3 ML IH SCH ×4 (03:30→22:43)
[2017-04-07 04:25] LABS: Basophils % 0.1 %; Eosinophils # 0.1 K/mcL (0.0-0.6); Eosinophils % 0.7 %; Hematocrit 23.3 % (37.5-50.1); Hemoglobin 7.4 g/dL (12.9-16.9); Immature Granulocytes % 0.6 % (0-4); Lymphocytes # 0.6 K/mcL (0.6-4.6); Lymphocytes % 5.1 %; Mean Corpuscular HGB Conc 31.8 g/dL (31.6-35.5); Mean Corpuscular Hemoglobin 29.2 pg (28.0-33.3); Mean Corpuscular Volume 92.1 fL (83.0-100.0); Mean Platelet Volume 11.9 fL (9.4-12.4); Monocytes # 0.8 K/mcL (0.0-1.3); Monocytes % 6.9 %; Neutrophils # 10.4 K/mcL (1.6-8.9); Red Blood Count 2.53 M/mcL (4.19-5.50); Red Cell Distribution Width 17.8 % (11.5-14.5); Segmented Neutrophils % 86.6 %
[2017-04-07 04:26] LABS: Platelet Count 83 K/mcL (140-400)
[2017-04-07 04:45] LABS: Albumin 2.2 g/dL (3.5-5.0); Albumin/Globulin Ratio 0.6 (1.1-2.2); Calcium 8.2 mg/dL (8.6-10.8); Globulin 3.6 g/dL (2.4-3.5); Potassium 3.6 mEq/L (3.5-4.5); Total Protein 5.8 g/dL (6.0-8.3)
[2017-04-07] MEDS ORDERED: Aminoglycoside Consult 1 EACH MC ONE (07:38)
[2017-04-07] MEDS: Furosemide 40 MG/4 ML VIAL IVP SCH ×2 (08:27→17:49)
[2017-04-07] MEDS: Pantoprazole 40 MG VIAL IVP SCH ×2 (08:27→21:54)
[2017-04-07] MEDS: amLODIPine 5 MG TABLET PO SCH ×2 (08:36→21:38)
[2017-04-07] MEDS: Renal Vitamin 1 MG CAPSULE PO SCH (08:36)
[2017-04-07] MEDS: Cholecalciferol (D-3) 1,000 UNIT TABLET PO SCH (08:36)
--- NOTE | 2017-04-07 09:50 | Anesthesia Evaluation PreOp ---
Date of Encounter: 04/07/17 Time of Encounter: 09:45 - Past History Planned Operation: EGD/Colonoscopy Cardiac History: Denies any Significant Hx, HTN, Hyperlipidemia, Arrhythmia ( 20AFib - Chronic), Other (PVD, anemia) Pulmonary History: Smoker, Pack/yr (1/2 ppd) [employer] History: Denies Any Significant HX Other Medical History: Renal (Acute on chronic renal failurwe), GERD Anesthesia History: No Prior Anesthetic Complications, Past Anesthesia ( carotid endarterectomy (Right), orthopedic, other (Left knee),) Alcohol Use: occasionally Drug use: none Medications and Allergies Aspirin 81 mg PO DAILY 11/01/15 [History] Cholecalciferol (D-3) [Vitamin D] 2,000 unit PO DAILY 11/01/15 [History] Metoprolol [Lopressor] 50 mg PO BID #60 tablet 11/02/15 [Rx] Acetaminophen [Tylenol] 1,000 mg PO BID 08/16/16 [History] Gluc Alvarez/Chondro Alvarez A/Vit C/Mn [Glucosamine Chondroitin Tab] 1 each PO DAILY [History] Rivaroxaban [Xarelto] 15 mg PO DAILY 08/16/16 [History] Albuterol Sulfate [Proair Hfa] 2 puff IH Q4H PRN 03/17/17 [History] Atorvastatin [Lipitor] 40 mg PO HS 03/17/17 [History] amLODIPine [Norvasc] 5 mg PO BID 03/17/17 [History] Ipratropium/Albuterol Neb [Duoneb] 3 ml IH Q6HR #120 inhsol 03/19/17 [Rx] Furosemide [Lasix] 20 mg PO DAILY 04/04/17 [History] 3 Allergy/AdvReac Type Severity Reaction Status Date / Time No Known Allergies Allergy Verified 11/01/15 00:22 - Meds/Allergy Pre-op Review Medications Reviewed: Yes Allergies Reviewed: Yes Beta Blockers on Current Med List: Yes If Beta Blockers taken, Date/Time (Last Dose taken): 20:46 04/06/2017 Anesthesia Results - Labs 04/07/17 04:10 04/07/17 04:10 - Imaging EKG: image reviewed (ATRIAL FIBRILLATION RIGHT BUNDLE BRANCH BLOCK) Anesthesia Exam O2 Sat Weight 103.419 kg O2 Sat by Pulse Oximetry 95 O2 Sat by Pulse Oximetry 96 O2 Sat by Pulse Oximetry 99 O2 Sat by Pulse Oximetry 98 O2 Sat by Pulse Oximetry 96 O2 Sat by Pulse Oximetry 98 O2 Sat by Pulse Oximetry 98 O2 Sat by Pulse Oximetry 95 O2 Sat by Pulse Oximetry 91 Vital Signs Temp Pulse Resp BP Pulse Ox 97.8 F 85 18 117/61 100 04/04/17 12:50 04/04/17 12:50 04/04/17 12:50 04/04/17 12:50 04/04/17 12:50 Vital Signs/O2 Sat, Most Current Temp Pulse Resp BP Pulse Ox 98.8 F 88 15 131/65 95 04/07/17 07:46 04/07/17 07:46 04/07/17 07:46 04/07/17 07:46 04/07/17 07:46 Height: 6'1'' Weight: 228# NPO (# of Hours): > 8 hrs Pain Scale: 0 Pain Scale Used: Numeric (1 - 10) - HEENT Pupil (Motor): Pupils equal, EOMI Mallampati: II Teeth: Poor dentition Oral Opening: Greater than 3 - [employer] LOC: Oriented [employer] Motor: Normal RUE, Normal LUE, Normal RLE, Normal LLE, Normal Face [employer] Sensory: Normal: RUE, LUE, RLE, LLE, Face - Cardiac Rhythm: Irregular Murmur: None JVD: No Carotid Bruit: No - Pulmonary Breath Sounds: bilateral Clear Respiratory Effort: Symmetrical Anesthesia Assess/Plan ASA Score: 3 Modified [place] Scale for Level of Consciousness: Cooperative, oriented, and tranquil Anesthetic Plan: MAC Autologous Blood: Yes Monitoring Plan: Standard Monitors Recovery Plan: Other
[2017-04-07] MEDS: 0.9 % Sodium Chloride 1,000 ML IVC SCH (11:15)
[2017-04-07] MEDS ORDERED: *HR* Propofol 500 MG/50 ML BOTTLE IVC ONE (12:19)
[2017-04-07] MEDS ORDERED: Lidocaine -MPF 2% 5 ML VIAL INFILT ONE (12:19)
--- NOTE | 2017-04-07 12:45 | Discharge Summary ---
Date of Encounter: 04/07/17 - Discharge Diagnosis (1) Cellulitis Status: Acute Qualifiers: Site of cellulitis: extremity Site of cellulitis of extremity: lower extremity Laterality: left Qualified Code(s): L03.116 - Cellulitis of left lower limb (2) Peripheral vascular disease Status: Chronic (3) Hdibi-yl-omyuvja kidney injury Status: Acute Qualifiers: Acute renal failure type: unspecified Chronic kidney disease stage: stage 3 (moderate) Qualified Code(s): N17.9 - Acute kidney failure, unspecified; N18.3 - Chronic kidney disease, stage 3 (moderate) (4) Anemia Status: Chronic Qualifiers: Anemia type: due to chronic kidney disease Chronic kidney disease stage: stage 4 (severe) Qualified Code(s): N18.4 - Chronic kidney disease, stage 4 ( severe); D63.1 - Anemia in chronic kidney disease; D63.1 - Anemia in chronic kidney disease (5) CAD (coronary artery disease) Status: Chronic Qualifiers: Coronary Disease-Associated Artery/Lesion type: [place] artery [place] vs. transplanted heart: [place] heart Associated angina: angina presence unspecified Qualified Code(s): I25.10 - Atherosclerotic heart disease of [place] coronary artery without angina pectoris (6) HLD (hyperlipidemia) Status: Chronic Qualifiers: Hyperlipidemia type: pure hypercholesterolemia Qualified Code(s): E78.00 - Pure hypercholesterolemia, unspecified; E78.0 - Pure hypercholesterolemia (7) HTN (hypertension) Status: Chronic Qualifiers: Hypertension type: essential hypertension Qualified Code(s): I10 - Essential (primary) hypertension (8) DVT prophylaxis Status: Acute (9) COPD (chronic obstructive pulmonary disease) Status: Chronic Qualifiers: COPD type: unspecified COPD Qualified Code(s): J44.9 - Chronic obstructive pulmonary disease, unspecified (10) Thrombocytopenia Status: Acute - Discharge Medications Home Medications: Aspirin 81 mg PO DAILY 11/01/15 [History] Cholecalciferol (D-3) [Vitamin D] 2,000 unit PO DAILY 11/01/15 [History] Metoprolol [Lopressor] 50 mg PO BID #60 tablet 11/02/15 [Rx] Acetaminophen [Tylenol] 1,000 mg PO BID 08/16/16 [History] Gluc Alvarez/Chondro Alvarez A/Vit C/Mn [Glucosamine Chondroitin Tab] 1 each PO DAILY [History] Rivaroxaban [Xarelto] 15 mg PO DAILY 08/16/16 [History] Albuterol Sulfate [Proair Hfa] 2 puff IH Q4H PRN 03/17/17 [History] Atorvastatin [Lipitor] 40 mg PO HS 03/17/17 [History] amLODIPine [Norvasc] 5 mg PO BID 03/17/17 [History] Ipratropium/Albuterol Neb [Duoneb] 3 ml IH Q6HR #120 inhsol 03/19/17 [Rx] Furosemide [Lasix] 20 mg PO DAILY 04/04/17 [History] Allergies/Adverse Reactions: 3 Allergy/AdvReac Type Severity Reaction Status Date / Time No Known Allergies Allergy Verified 11/01/15 00:22 Procedures/tests Complete & Pending: Procedures Performed prior 72 hours Category Date Time Status MR lower leg LT wo con [MR] Routine MRI 04/05/17 02:19 Completed EV echocardiogram Routine Y 04/05/17 10:27 Completed Date of admission: 04/04/17 22:55 Primary care physician: Benoit Cosme Jr, MD Consults: 04/05/17 11:10 Consult to Surgery [CONS] Routine Consulting Provider: [facility] Reason for Consult: Anemia. Guaiac +. Discussed with Dr. Reyes Time Notified: 11:11 Call Completed: Yes 04/06/17 13:26 Consult to Nutrition [CONS] Routine Comment: Consulting Provider: NUTRITION Reason for Dietary Consult: PO Supplementation 04/07/17 09:09 Consult to Infectious Diseases [CONS] Routine Consulting Provider: Infectious Disease [place] Reason for Consult: Recurrent cellulitis, not improving on current abx. Please evaluate for antibiotic recommendations. Thank you! Time Notified: 09:10 Call Completed: Yes - Patient Status Condition: Fair - Discharge Instructions Follow Up With: Benoit Cosme Jr, MD [Primary Care Provider] - Hospital course: Mr. Mcqueen is a 81 year old male - Time Spent with Patient Total time spent providing and/or coordinating discharge services: - Constitutional Vitals: Temp Pulse Resp BP Pulse Ox 98.6 F 100 18 135/72 96 04/07/17 11:28 04/07/17 11:54 04/07/17 11:54 04/07/17 11:54 04/07/17 11:54 General appearance: Present: cooperative, disheveled, A&O X 3, no acute distress , answers questions appropriately. Absent: pleasant
--- NOTE | 2017-04-07 12:48 | Internal Med Progress Note ---
Date of Encounter: 04/07/17 Time of Encounter: 09:00 - Assessment and plan (1) Cellulitis Current Visit: Yes Status: Acute Assessment and plan: Patient presents with bilateral pedal and lower extremity edema and erythema. Patient states that he has not been able to bear weight on either of his legs for last 2-3 days due to the pain. He reports he has a history of venous reflux in his lower extremities and has been seeing the wound care clinic. He states that they thought that they had solved the problem, however it has returned now. Patient was admitted with white count of 17.3, has decreased to 11.7 today. Patient is being treated with vancomycin IV with pharmacy dosing due to chronic renal disease. Zosyn ordered today due to missed order in [employer]. Patient has no fever, no tachycardia, no tachypnea, he is normotensive. Lactic acid was negative. Wound care consult is in, he has not been seen by them yet. Blood cultures were negative 2. ID consulted, I appreciate BREAKER MACHINE OPERATOR recommendations and consultation Continue to monitor patient condition, labs, and vital signs. Qualifiers: Site of cellulitis: extremity Site of cellulitis of extremity: lower extremity Laterality: left Qualified Code(s): L03.116 - Cellulitis of left lower limb (2) Peripheral vascular disease Current Visit: Yes Status: Chronic Assessment and plan: Per patient history. Plan as above. Patient to see wound care. Follows with them routinely for wound care/ cellulitis. (3) Acuxy-wa-yjxivoq kidney injury Current Visit: Yes Status: Acute Assessment and plan: Creatinine is 2.16 today, GFR is 30. This actually appears to be significantly lower the patient's baseline of 3.22 and higher. GFR baseline appears to be in mid teens to mid 20s. Patient states that he does not see nephrology and only follows with primary care. Avoid nephrotoxins, decrease Lasix dose Continue to monitor labs Consider nephrology consultation tomorrow. Qualifiers: Acute renal failure type: unspecified Chronic kidney disease stage: stage 3 (moderate) Qualified Code(s): N17.9 - Acute kidney failure, unspecified; N18.3 - Chronic kidney disease, stage 3 (moderate) (4) Anemia Current Visit: Yes Status: Chronic Assessment and plan: Patient does report dark tarry stools recently, stool occult blood from lab was negative. Patient was admitted recently and found to have iron deficiency anemia with an iron of 19 saturation of 5%, patient is unsure of his home medications at this time and is unsure if he is taking iron supplements at home. During this visit, iron level is 8, percent saturation is 4. Anemia also could be due to chronic disease, stage 3-4 renal failure. Hemoglobin 7.4 today, 8.1 after transfusion yesterday. Iron 8, % saturation 4. Ferrous Sulfate has been started. Xarelto and aspirin have been stopped. EGD and colonoscopy negative for bleeding, masses, or polyps. Stool occult blood from lab negative, bedside guaiac positive. Prepare to transfuse if hemoglobin less than 8 and symptomatic. Monitor labs Ferrous sulfate by mouth twice a day. Qualifiers: Anemia type: due to chronic kidney disease Chronic kidney disease stage: stage 4 (severe) Qualified Code(s): N18.4 - Chronic kidney disease, stage 4 ( severe); D63.1 - Anemia in chronic kidney disease; D63.1 - Anemia in chronic kidney disease (5) CAD (coronary artery disease) Current Visit: Yes Status: Chronic Assessment and plan: Patient denies chest pain. Continue telemetry. Xarelto and aspirin have been stopped due to anemia requiring transfusion of PRBCs. Continue Lipitor and beta samanta. Transfuse PRBCs if hemoglobin less than 8 patient symptomatic. Qualifiers: Coronary Disease-Associated Artery/Lesion type: [place] artery [place] vs. transplanted heart: [place] heart Associated angina: angina presence unspecified Qualified Code(s): I25.10 - Atherosclerotic heart disease of [place] coronary artery without angina pectoris (6) HLD (hyperlipidemia) Current Visit: Yes Status: Chronic Assessment and plan: Chronic. Continue Lipitor. Lipid panel is within normal limits. Qualifiers: Hyperlipidemia type: pure hypercholesterolemia Qualified Code(s): E78.00 - Pure hypercholesterolemia, unspecified; E78.0 - Pure hypercholesterolemia (7) HTN (hypertension) Current Visit: Yes Status: Chronic Assessment and plan: Blood pressure has been well controlled in the hospital. Continue home medications. Continue telemetry and to monitor vital signs. Qualifiers: Hypertension type: essential hypertension Qualified Code(s): I10 - Essential (primary) hypertension (8) DVT prophylaxis Current Visit: Yes Status: Acute Assessment and plan: Due to anemia, Xarelto and aspirin have been stopped. Due to pain, edema, erythema, cellulitis to bilateral lower extremities calf pumps, foot pumps, and or OLGA LIDIA hose are not appropriate at this time. We will continue to monitor patient's condition and apply either pharmacologic or mechanical DVT prophylaxis as soon as feasible and appropriate. (9) COPD (chronic obstructive pulmonary disease) Current Visit: Yes Status: Chronic Assessment and plan: No acute exacerbation at this time. Continue telemetry, pulse ox with vital signs. Continue albuterol inhaler, DuoNeb nebs scheduled. Qualifiers: COPD type: unspecified COPD Qualified Code(s): J44.9 - Chronic obstructive pulmonary disease, unspecified (10) Thrombocytopenia Current Visit: Yes Status: Acute Assessment and plan: Patient has a significant decrease in platelets over the last month. Most likely due to chronic disease. Will continue to monitor. Patient may need outpatient follow-up. - Time Spent With Patient less than 15 minutes - Subjective Interval history: Patient was seen and assessed at bedside [id number], daughter at bs. Patient is alert and oriented. I have made family aware that ID has been consulted. Questions answered. Pt denies abd pain, n/v/d, headache, blurred vision, reports mild pain to right ankle. He has completed bowel prep for scope and EGD. Pt has moist sounding cough today that he states is new. - Constitutional Vitals: Temp Pulse Resp BP Pulse Ox 98.6 F 100 18 135/72 96 04/07/17 11:28 04/07/17 11:54 04/07/17 11:54 04/07/17 11:54 04/07/17 11:54 General appearance: Present: cooperative, disheveled, A&O X 3, no acute distress , answers questions appropriately. Absent: pleasant - Head Head exam: Present: atraumatic, normal inspection, normocephalic - Eye Eye exam: Present: normal appearance, conjuntiva pink, sclera anicteric - Neck Neck exam general surgery: Present: supple, trachea midline. Absent: lymphadenopathy - Respiratory Respiratory exam: Present: CTAB, rhonchi. Absent: accessory muscle use, chest wall tenderness, rales, wheezes - Cardiovascular Cardiovascular exam: Present: RRR, +S1, +S2. Absent: diastolic murmur, gallop, rubs, systolic murmur - GI/Abdominal GI/Abdominal exam: Present: normal bowel sounds, soft, no peritoneal signs. Absent: distended, hepatomegaly, tenderness - Extremities Exam Extremities exam: Present: calf tenderness, tenderness, warm, radial pulses palpable and symmetrical. Absent: cyanotic, full ROM, normal capillary refill, normal inspection, pedal edema - Neurological Exam Neurological exam: Present: alert, oriented X3, no focal deficits - Skin Skin exam: Present: dry, intact, normal color, warm. Absent: rash Internal Medicine: Result - Labs CBC & Chem 7: 04/07/17 04:10 04/07/17 04:10 Labs: Short CBC 04/06/17 04/07/17 Range/Units 17:45 04:10 WBC 12.0 H (4.3-11.1) K/mcL Hgb 8.1 L 7.4 L (12.9-16.9) g/dL Hct 25.8 L 23.3 L (37.5-50.1) % Plt Count 83 L (140-400) K/mcL Neutrophils # 10.4 H (1.6-8.9) K/mcL BMP 04/07/17 04:10 Sodium 137 Potassium 3.6 Chloride 103 Carbon Dioxide 24 BUN 43 H Creatinine 2.16 H Glucose 123 H Calcium 8.2 L Liver Function 04/07/17 Range/Units 04:10 Total Bilirubin 1.0 (0.2-1.2) mg/dL AST 19 (5-34) Units/L ALT 26 (0-55) Units/L Alkaline Phosphatase 68 (38-126) Units/L Albumin 2.2 L (3.5-5.0) g/dL - ABG Interpretation ABG results: PT/INR, D-dimer PT 15.1 Seconds (9.4-12.1) H 04/05/17 05:20 Consult Discharge Plan - Plan Referrals: Benoit Cosme Jr, MD [Primary Care Provider] -
--- NOTE | 2017-04-07 12:54 | Event Note ---
Date of Encounter: 04/07/17 Time of Encounter: 12:53 EGD demonstrated mild granular mucosa of the stomach. No ulcers or bleeding. Biopsies obtained. Colonoscopy demonstrated diverticulum. No bleeding, masses , or polyps. Advance to soft diet. No need for outpatient follow up. Will call patient with biopsy results. Thank you.
[2017-04-07] MEDS: Piperacillin/Tazobactam 3.375 GM in D5% in Water (Mini-Bag+) 100 ML IVPB SCH ×2 (13:48→21:39)
--- NOTE | 2017-04-07 17:31 | Infectious Disease Consult ---
Date of Encounter: 04/07/17 Time of Encounter: 17:29 Assessment and Plan (1) Leukocytosis Status: Acute Assessment and plan: WBC elevated on admission. Etiology unclear: cellulitis vs. other. Continue to trend. Qualifiers: Leukocytosis type: unspecified Qualified Code(s): D72.829 - Elevated white blood cell count, unspecified (2) Bilateral lower extremity pain Status: Acute Assessment and plan: Etiology unclear. Multiple joints involved. Given that this is bilateral and multiple joints, consider non-infectious etiologies. MRI of the left LE showed findings consistent with cellulitis and a moderate tibiotalar joint effusion. The patient could not tolerate having the RLE MRI done. BLE venous doppler studies are negative. WBC has improved, but still elevated. Per the patient, his legs do not look/feel any better. Check inflammatory markers (ESR, CRP), rheumatoid factor, NAYELI. Check uric acid. Get bilateral hand x-rays. Request podiatry to evaluate the left tibiotalar joint effusion. Consider rheumatology consult given the multiple joint involvement. Continue Vancomycin IV for now. Pharmacy to dose. Goal trough ~15. Start cefepime 2 grams IV Q12H. We will ask pharmacy to assist with dosing. Duration of treatment depends on the clinical picture. Monitor renal function and for drug toxicity and dose-adjust antibiotics. (3) Cellulitis Status: Acute Assessment and plan: Location: BLE. Given the bilateral nature of the symptoms, consider other non-infectious etiologies. See additional recommendations as above. Qualifiers: Site of cellulitis: extremity Site of cellulitis of extremity: lower extremity Laterality: left Qualified Code(s): L03.116 - Cellulitis of left lower limb (4) Hand pain Status: Acute Assessment and plan: Etiology unclear. Get bilateral hand x-rays. See additional recommendations as above. Qualifiers: Laterality: bilateral Qualified Code(s): M79.641 - Pain in right hand; M79.642 - Pain in left hand; M79.642 - Pain in left hand (5) Venous insufficiency Status: Acute Assessment and plan: Location: BLE. Consider compression hose/dressings as the patient can tolerate. (6) Rrhpt-oh-irmkzkd kidney injury Status: Acute Assessment and plan: Improved. Continue to trend. Avoid nephrotoxins as able and dose-adjust antibiotics. Qualifiers: Acute renal failure type: unspecified Chronic kidney disease stage: stage 3 (moderate) Qualified Code(s): N17.9 - Acute kidney failure, unspecified; N18.3 - Chronic kidney disease, stage 3 (moderate); N18.3 - Chronic kidney disease, stage 3 (moderate) (7) Thrombocytopenia Status: Acute Assessment and plan: Etiology unclear. Recommend hem/onc to evaluate. (8) Anemia Status: Chronic Assessment and plan: EGD/C-scope negative. Further workup and evaluation by the primary team. Qualifiers: Anemia type: due to chronic kidney disease Chronic kidney disease stage: stage 4 (severe) Qualified Code(s): N18.4 - Chronic kidney disease, stage 4 ( severe); D63.1 - Anemia in chronic kidney disease; D63.1 - Anemia in chronic kidney disease (9) Atrial fibrillation Status: Chronic Qualifiers: Atrial fibrillation type: chronic Qualified Code(s): I48.2 - Chronic atrial fibrillation Infectious Disease HPI - Data of Consult Patient: new to practice Consult date: 04/07/17 Requesting Physician: Monique Orosco CNP Primary Care Provider: Benoit Cosme Jr, MD - Consult Narrative Reason for consult: BLE Cellulitis History of present illness: Mr. Mcqueen is a 81 year old male with a past medical history of venous stasis dermatitis with venous ulcers currently resolved and under the care of the [facility], CAD, A-fib, HLD, HTN, and CKD. The patient was admitted to the hospital 04/04/17 with BLE cellulitis. We are consulted 04/07/17 for further recommendations regarding BLE cellulitis. The patient is a81 year old male with a past medical history as stated above. The patient was admitted to the hospital with complaints of a two day history of increased pain, redness, and swelling of the BLE. He previously finished a 10 day course of doxycyline about two days prior to onset of symptoms. Upon arrival to the ED, the patient was afebrile and hemodynamically stable. He had a neutrophilic leukocytosis and SAMANTHA. X-rays of the BLE were normal. BLE venous dopplers were negative for DVT. Blood cultures were obtained x 2 sets and the patient was started on IV antibiotics and admitted for further evaluation. Since admission, the patient's WBC has improved. He has been afebrile. His BLE pain, redness, and swelling has not improved much. LLE MRI showed findings consistent with cellulitis and a left tibiotalar joint effusion. The patient refused to have the RLE MRI completed due to pain. The patient was noted to have anemia while here and has an EGD and colonoscopy earlier today. Currently, he is on day four of IV Vancomycin. We have been asked to evaluate and make further recommendations. During my exam today, the patient states that his legs are no better. He reports severe pain in the bilateral feet, bilateral lower legs, and in the right knee. He also complains of joint pain in the right index finger and left fourth and fifth digits. He reports fevers at home, denies chills or rigors. Denies chest pain, shortness of breath. Reports a chronic moist cough. Denies nausea, vomiting, diarrhea, or constipation. Denies urinary complaints. Denies back pain. Denies oral thrush or new skin lesions. CC: Monique Orosco, PROFESS[employer] Past Med Surg Social Fam HX - Past Medical History Attestation: Yes The following information was validated with the patient. Source: patient, old records reviewed, nursing notes reviewed Medical history: atrial fibrillation, coronary artery disease, hyperlipidemia, hypertension, renal disease, venous stasis Psychiatric history: no psych history - Past Surgical History Surgical History: no surgical history, carotid endarterectomy (Right), orthopedic, other (Left knee), other - Social History Smoking Status: Current every day smoker Packs per day: 1/2 PPD Smokeless Tobacco Status: No Alcohol use: occasionally Drug use: none Occupational status: retired Current living situation: Home - Independent Activity Level: Independent ambulation Recent Out of Country Travel Within the Last 8 Weeks: No Exposure or Possible Exposure to Illness During Travel: No - Family History Father Race: Family Member Ethnicity: Non- Living Status: Age at : 91 Cause of : Old age Hx Family Cardiac Disorders: No Hx Family Respiratory Disorders: No Hx Family Cancer: No Hx Family GI Disorders: No Hx Family Genitourinary Disorders: No Hx Family Endocrine Disorder: No Hx Family Musculoskeletal Disorders: Yes (RA) Hx Family Neuromuscular Disorders: No Hx Family Neurologic Disorders: No Hx Family HEENT Disorders: No Hx Family Autoimmune Disorders: No Hx Family Reproductive Disorders: No Hx Family Psychosocial Disorders: No Hx Family Medical Disorders: No Mother Race: Family Member Ethnicity: Non- Living Status: Age at : 70 Cause of : Heart failure Hx Family Cardiac Disorders: Yes (Heart Murmur) Hx Family Respiratory Disorders: No Hx Family Cancer: No Hx Family GI Disorders: No Hx Family Genitourinary Disorders: No Hx Family Endocrine Disorder: No Hx Family Musculoskeletal Disorders: Yes (RA) Hx Family Neuromuscular Disorders: No Hx Family Neurologic Disorders: No Hx Family HEENT Disorders: No Hx Family Autoimmune Disorders: No Hx Family Reproductive Disorders: No Hx Family Psychosocial Disorders: No Hx Family Medical Disorders: No Brother History Unknown: Yes Race: Family Member Ethnicity: Non- Living Status: Still Living Sister Race: Family Member Ethnicity: Non- Living Status: Age at : 82 Cause of : Heart failure Hx Family Cardiac Disorders: Yes (HF) Hx Family Musculoskeletal Disorders: Yes (Arthritis) Son Race: Family Member Ethnicity: Non- Living Status: Still Living Hx Family Cardiac Disorders: Yes Infectious Disease-CN:Meds Aspirin 81 mg PO DAILY 11/01/15 [History] Cholecalciferol (D-3) [Vitamin D] 2,000 unit PO DAILY 11/01/15 [History] Metoprolol [Lopressor] 50 mg PO BID #60 tablet 11/02/15 [Rx] Acetaminophen [Tylenol] 1,000 mg PO BID 08/16/16 [History] Gluc Alvarez/Chondro Alvarez A/Vit C/Mn [Glucosamine Chondroitin Tab] 1 each PO DAILY [History] Rivaroxaban [Xarelto] 15 mg PO DAILY 08/16/16 [History] Albuterol Sulfate [Proair Hfa] 2 puff IH Q4H PRN 03/17/17 [History] Atorvastatin [Lipitor] 40 mg PO HS 03/17/17 [History] amLODIPine [Norvasc] 5 mg PO BID 03/17/17 [History] Ipratropium/Albuterol Neb [Duoneb] 3 ml IH Q6HR #120 inhsol 03/19/17 [Rx] Furosemide [Lasix] 20 mg PO DAILY 04/04/17 [History] 3 Allergy/AdvReac Type Severity Reaction Status Date / Time No Known Allergies Allergy Verified 11/01/15 00:22 All systems: reviewed and no additional remarkable complaints except as stated Exam - Constitutional Vitals: Temp Pulse Resp BP Pulse Ox 98.4 F 93 18 122/66 98 04/07/17 14:49 04/07/17 14:49 04/07/17 16:13 04/07/17 14:49 04/07/17 16:13 General appearance: average body habitus, cooperative, no acute distress - Head Head exam: Present: atraumatic, normal inspection, normocephalic - Eye Eye exam: Present: EOMI, normal appearance, PERRL Pupils: Present: normal accommodation - ENT ENT exam: Present: mucous membranes moist - Neck Neck exam: Present: normal inspection - Respiratory Respiratory exam: Present: CTAB. Absent: rales, respiratory distress, rhonchi, wheezes - Cardiovascular Cardiovascular exam: Present: RRR, +S1, +S2 - GI/Abdominal GI/Abdominal exam: Present: normal bowel sounds, soft. Absent: distended, tenderness - Extremities Exam Extremities exam: Present: joint swelling (Right knee, left ankle), pedal edema (2+ BLE), tenderness (BLE) Additional comments: BLE erythema with underlying venous stasis dermatitis. Right knee tenderness and edema without erythema. Erythema and tenderness noted to the right index, left 4th, and left 5th digits. - Neurological Exam Neurological exam: Present: alert, oriented X3, no focal deficits - Psychiatric Psychiatric exam: Present: normal affect, normal mood - Skin Skin exam: Present: dry, intact, normal color, warm Infectious Disease CN: Results - Labs CBC & Chem 7: 04/08/17 03:45 04/08/17 03:45 Serology: Serology 04/06/17 Range/Units 22:01 Stool Occult Blood Negative (Negative) Consult Discharge Plan - Plan Referrals: Benoit Cosme Jr, MD [Primary Care Provider] - - Attending Attestation I examined this patient and my medical decision-making was reviewed with the Resident Physician. I agree with the documented findings, disposition and treatment plan as described except to the extent set forth below. This is an addendum to original report dictated by quinton QUINTANA, please refer to Hailee levi for full detail. Patient is a 81-year-old gentleman with extensive past medical history mentioned below including coronary artery disease , A. fib, hyperlipidemia and chronic kidney disease presented to [facility] on with bilateral lower 7 cellulitis. Patient apparently had recently had cellulitis and he was started on doxycycline by his PCP. Patient and that daughter who is in the room adamantly states that the redness bilaterally in the lower extremities was fully done while the patient was on doxycycline and it came back 2 days after detox second was stopped. The reason mentioning that is because the patients lower extremity erythema appears chronic and appears like venous stasis leg. Patient also had some erythematous nodules on his knuckles. On further questioning patient tells me that he had severe arthritis in multiple joints. Patient tells me that his mother had severe crippling arthritis and joint deformities. Patient was started on broad-spectrum antibiotics. An MRI of the left lower extremity was completed which revealed some fluid collection and joint effusion of the ankle. We are asked to evaluate the patient and make further recommendations. Currently the patient is on broad-spectrum antibiotics including vancomycin and he states that he is feeling better. I am concerned though that this could be inflammatory versus infectious versus other since he has polyarthritis, persistent leukocytosis and concern for autoimmune versus inflammatory arthritis. At this point will get bilateral hand x-rays, check inflammatory markers including ESR, CRP, rheumatoid factor and NAYELI. We will check uric acid level. Patient tells me he never had gout before. We will also ask rheumatology to evaluate. Monitor labs and for drug toxicity. Get blood cultures. Will probably need arthrocentesis of the ankle.
[2017-04-07] MEDS: Miconazole 2% ointment 114 GM TUBE TP SCH (17:45)
[2017-04-07] MEDS: Acetaminophen 325 MG TABLET PO PRN (21:38)
[2017-04-08 03:58] LABS: Basophils % 0.1 %; Monocytes % 6.4 %
[2017-04-08 04:00] LABS: Eosinophils # 0.2 K/mcL (0.0-0.6); Eosinophils % 1.7 %; Hematocrit 22.2 % (37.5-50.1); Hemoglobin 7.1 g/dL (12.9-16.9); Immature Granulocytes % 0.6 % (0-4); Immature Platelets 4.2 % (1.1-6.1); Lymphocytes # 0.7 K/mcL (0.6-4.6); Lymphocytes % 7.6 %; Mean Corpuscular Hemoglobin 29.3 pg (28.0-33.3); Mean Corpuscular Volume 91.7 fL (83.0-100.0); Mean Platelet Volume 11.4 fL (9.4-12.4); Monocytes # 0.6 K/mcL (0.0-1.3); Neutrophils # 7.8 K/mcL (1.6-8.9); Platelet Count 79 K/mcL (140-400); Red Blood Count 2.42 M/mcL (4.19-5.50); Red Cell Distribution Width 17.8 % (11.5-14.5); Segmented Neutrophils % 83.6 %
[2017-04-08 04:12] LABS: Albumin 2.1 g/dL (3.5-5.0); Albumin/Globulin Ratio 0.6 (1.1-2.2); Bilirubin,Total 0.9 mg/dL (0.2-1.2); Calcium 8.3 mg/dL (8.6-10.8); Globulin 3.5 g/dL (2.4-3.5); Potassium 3.3 mEq/L (3.5-4.5); Total Protein 5.6 g/dL (6.0-8.3)
[2017-04-08] MEDS: Ipratropium/Albuterol Neb 3 ML IH SCH ×5 (04:26→22:56)
[2017-04-08] MEDS: Piperacillin/Tazobactam 3.375 GM in D5% in Water (Mini-Bag+) 100 ML IVPB SCH (07:31)
[2017-04-08] MEDS: Pantoprazole 40 MG VIAL IVP SCH ×2 (07:51→22:23)
[2017-04-08] MEDS: Furosemide 40 MG/4 ML VIAL IVP SCH ×2 (07:51→18:17)
[2017-04-08] MEDS: Acetaminophen 325 MG TABLET PO PRN (07:51)
[2017-04-08] MEDS: Renal Vitamin 1 MG CAPSULE PO SCH (07:52)
[2017-04-08] MEDS: Cholecalciferol (D-3) 1,000 UNIT TABLET PO SCH (07:52)
[2017-04-08] MEDS: amLODIPine 5 MG TABLET PO SCH ×2 (07:52→22:23)
--- NOTE | 2017-04-08 09:13 | Internal Med Progress Note ---
Date of Encounter: 04/08/17 Time of Encounter: 09:11 - Assessment and plan (1) Cellulitis Current Visit: Yes Status: Acute Assessment and plan: Acute on chronic bilateral lower extremity cellulitis, patient has swelling on the fourth and fifth left fingers possibly not infected (suspicious for gout) *Prednisone, Check rheumatoid factor. Not useful to order uric acid in the acute setting has a history of venous reflux in his lower extremities and has been seeing the wound care clinic. Patient was admitted with white count of 17.3, Discontinue vancomycin IV (stopped after the 2nd day due to elevated levels) and Zosyn (did not get it every day due to missed order in [facility]) Start doxycycline IV Wound care consulted Blood cultures were negative 2. Qualifiers: Site of cellulitis: extremity Site of cellulitis of extremity: lower extremity Laterality: left Qualified Code(s): L03.116 - Cellulitis of left lower limb (2) Anemia Current Visit: Yes Status: Chronic Assessment and plan: Acute blood loss anemia likely secondary to GI bleed, unidentified at source, possibly related to chronic kidney disease exacerbated by aspirin and Xarelto dark tarry stools recently, stool occult blood from lab was negative. Received 1 unit of blood Iron 8, % saturation 4. Ferrous Sulfate has been started. Xarelto and aspirin have been stopped. EGD and colonoscopy negative for bleeding, masses, or polyps. Monitor CBC and transfuse as needed, might require a capsule study Stool occult blood from lab negative, bedside guaiac positive. Qualifiers: Anemia type: due to chronic kidney disease Chronic kidney disease stage: stage 4 (severe) Qualified Code(s): N18.4 - Chronic kidney disease, stage 4 ( severe); D63.1 - Anemia in chronic kidney disease; D63.1 - Anemia in chronic kidney disease (3) Atrial fibrillation Current Visit: Yes Status: Chronic Assessment and plan: Continue metoprolol, hold aspirin and Xarelto due to anemia Qualifiers: Atrial fibrillation type: chronic Qualified Code(s): I48.2 - Chronic atrial fibrillation (4) GERD (gastroesophageal reflux disease) Current Visit: Yes Status: Chronic Assessment and plan: Continue Protonix Qualifiers: Esophagitis presence: esophagitis presence not specified Qualified Code(s) : K21.9 - Gastro-esophageal reflux disease without esophagitis (5) 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 Continue telemetry. Xarelto and aspirin have been stopped due to anemia requiring transfusion of PRBCs. Continue Lipitor and beta samanta. . Qualifiers: Coronary Disease-Associated Artery/Lesion type: [place] artery [place] vs. transplanted heart: [place] heart Associated angina: angina presence unspecified Qualified Code(s): I25.10 - Atherosclerotic heart disease of [place] coronary artery without angina pectoris (7) HTN (hypertension) Current Visit: Yes Status: Chronic Assessment and plan: Blood pressure has been well controlled in the hospital. Continue home medications. Continue telemetry and to monitor vital signs. Qualifiers: Hypertension type: essential hypertension Qualified Code(s): I10 - Essential (primary) hypertension (8) COPD (chronic obstructive pulmonary disease) Current Visit: Yes Status: Chronic Assessment and plan: No acute exacerbation at this time. Continue telemetry, pulse ox with vital signs. Continue albuterol inhaler, DuoNeb nebs scheduled. Qualifiers: COPD type: unspecified COPD Qualified Code(s): J44.9 - Chronic obstructive pulmonary disease, unspecified (9) Thrombocytopenia Current Visit: Yes Status: Acute Assessment and plan: Patient has a significant decrease in platelets over the last month. Most likely due to chronic disease. Will continue to monitor. Patient may need outpatient follow-up. (10) Cellulitis of both lower extremities Current Visit: Yes Status: Acute (11) Chronic renal insufficiency Current Visit: Yes Status: Acute Qualifiers: Chronic kidney disease stage: stage 4 (severe) Qualified Code(s): N18.4 - Chronic kidney disease, stage 4 (severe) - Subjective Interval history: Complains of pain and tenderness on his fourth and fifth left fingers, both have been more swollen. Denies any chest pain or shortness of breath, complains of swelling on both lower extremities no fevers or chills, no dysuria - Constitutional Vitals: Temp Pulse Resp BP Pulse Ox 98.3 F 80 16 119/80 92 04/08/17 07:31 04/08/17 07:31 04/08/17 07:31 04/08/17 07:31 04/08/17 07:31 General appearance: Present: cooperative, disheveled, A&O X 3, no acute distress , answers questions appropriately. Absent: pleasant - Head Head exam: Present: atraumatic, normocephalic - Eye Eye exam: Present: PERRL, conjuntiva pink, sclera anicteric Pupils: Present: PERRL - Neck Neck exam general surgery: Present: supple, trachea midline. Absent: lymphadenopathy - Respiratory Respiratory exam: Present: decreased breath sounds, CTAB. Absent: accessory muscle use, rales, rhonchi, wheezes - Cardiovascular Cardiovascular exam: Present: RRR, +S1, +S2. Absent: diastolic murmur, gallop, rubs, systolic murmur - GI/Abdominal GI/Abdominal exam: Present: normal bowel sounds, soft, no peritoneal signs. Absent: distended, tenderness - Extremities Exam Extremities exam: Present: pedal edema (+2 pitting edema in both lower extremities), warm, radial pulses palpable and symmetrical. Absent: calf tenderness, cyanotic - Neurological Exam Neurological exam: Present: CN II-XII intact, oriented X3, no focal deficits. Absent: pronater drift, facial droop, speech deficit - Skin Skin exam: Present: dry. Absent: intact Additional comments: Left fifth finger's joints are swollen, mild erythema noticed. Severe erythema both lower extremities below the knee Internal Medicine: Result - Labs CBC & Chem 7: 04/08/17 03:45 04/08/17 03:45 Labs: Short CBC 04/08/17 Range/Units 03:45 WBC 9.3 (4.3-11.1) K/mcL Hgb 7.1 L (12.9-16.9) g/dL Hct 22.2 L (37.5-50.1) % Plt Count 79 L (140-400) K/mcL Neutrophils # 7.8 (1.6-8.9) K/mcL BMP 04/08/17 03:45 Sodium 136 Potassium 3.3 L Chloride 101 Carbon Dioxide 26 BUN 45 H Creatinine 2.33 H Glucose 120 H Calcium 8.3 L Liver Function 04/08/17 Range/Units 03:45 Total Bilirubin 0.9 (0.2-1.2) mg/dL AST 28 (5-34) Units/L ALT 33 (0-55) Units/L Alkaline Phosphatase 71 (38-126) Units/L Albumin 2.1 L (3.5-5.0) g/dL - ABG Interpretation ABG results: PT/INR, D-dimer PT 15.1 Seconds (9.4-12.1) H 04/05/17 05:20 - Impressions Impressions Chest X-Ray 04/07/17 12:49 IMPRESSION: Stable cardiomegaly. Pulmonary vascular congestion. Superimposed pneumonia is difficult to exclude. D/ / Hardik Martines MD / Hardik Martines MD Interpreting Provider: Hardik Martines MD Consult Discharge Plan - Plan Referrals: Benoit Cosme Jr, MD [Primary Care Provider] -
[2017-04-08] MEDS: Miconazole 2% ointment 114 GM TUBE TP SCH (11:24)
[2017-04-08] MEDS: Doxycycline 100 MG in 0.9 % Sodium Chloride Mini Bag 100 ML IVPB SCH ×2 (12:22→18:16)
[2017-04-08] MEDS: predniSONE 20 MG TABLET PO SCH (12:23)
--- NOTE | 2017-04-08 13:33 | Infectious Disease Progress No ---
Date of Encounter: 04/08/17 Time of Encounter: 13:29 - Assessment and Plan (1) Leukocytosis Current Visit: Yes Status: Acute WBC elevated on admission. Etiology unclear: cellulitis vs. other. Resolved. Continue to trend. Qualifiers: Leukocytosis type: unspecified Qualified Code(s): D72.829 - Elevated white blood cell count, unspecified (2) Bilateral lower extremity pain Current Visit: Yes Status: Acute Etiology unclear. Multiple joints involved including the BLE and bilateral hands. Given that this is bilateral and multiple joints, consider non-infectious etiologies. MRI of the left LE showed findings consistent with cellulitis and a moderate tibiotalar joint effusion. The patient could not tolerate having the RLE MRI done. BLE venous doppler studies are negative. WBC has normalized. Per the patient, his legs do not look/feel any better. Check inflammatory markers (ESR, CRP), rheumatoid factor, NAYELI. Check uric acid. Request podiatry to evaluate the left tibiotalar joint effusion. Consult rheumatology. Discussed with Dr. Magdaleno. Recommend continuing IV Vancomycin. Duration of treatment depends on the clinical picture. Monitor renal function and for drug toxicity and dose-adjust antibiotics. Antibiotics switched to doxycycline by the primary team. (3) Cellulitis Current Visit: Yes Status: Acute Location: BLE. Given the bilateral nature of the symptoms, consider other non-infectious etiologies. See additional recommendations as above. Qualifiers: Site of cellulitis: extremity Site of cellulitis of extremity: lower extremity Laterality: left Qualified Code(s): L03.116 - Cellulitis of left lower limb (4) Hand pain Current Visit: Yes Status: Acute Etiology unclear. Consult rheumatology. See additional recommendations as above. Qualifiers: Laterality: bilateral Qualified Code(s): M79.641 - Pain in right hand; M79.642 - Pain in left hand; M79.642 - Pain in left hand (5) Venous insufficiency Current Visit: Yes Status: Acute Location: BLE. Consider compression hose/dressings as the patient can tolerate. Wound care consulted and following. (6) Ayeoq-fw-szkktwi kidney injury Current Visit: Yes Status: Acute Improved. Continue to trend. Avoid nephrotoxins as able and dose-adjust antibiotics. Qualifiers: Acute renal failure type: unspecified Chronic kidney disease stage: stage 3 (moderate) Qualified Code(s): N17.9 - Acute kidney failure, unspecified; N18.3 - Chronic kidney disease, stage 3 (moderate); N18.3 - Chronic kidney disease, stage 3 (moderate) (7) Thrombocytopenia Current Visit: Yes Status: Acute Etiology unclear. Recommend hem/onc to evaluate. (8) Anemia Current Visit: Yes Status: Chronic EGD/C-scope negative. Further workup and evaluation by the primary team. Qualifiers: Anemia type: due to chronic kidney disease Chronic kidney disease stage: stage 4 (severe) Qualified Code(s): N18.4 - Chronic kidney disease, stage 4 ( severe); D63.1 - Anemia in chronic kidney disease; D63.1 - Anemia in chronic kidney disease (9) Atrial fibrillation Current Visit: Yes Status: Chronic Qualifiers: Atrial fibrillation type: chronic Qualified Code(s): I48.2 - Chronic atrial fibrillation - Subjective Interval history: Patient seen and examined with family at the bedside. No acute events noted overnight. Patient states that overall he feels okay today. States that his legs are not painful as long as he does not move them. He complains of right hand pain with movement as well. He complains of left hand pain even at rest. He denies fevers, chills, or rigors. Denies chest pain or shortness of breath. Reports a moist chronic cough. Denies nausea, vomiting, or diarrhea. Denies abdominal pain and states his appetite is good. Denies oral thrush or new skin lesions. Infect Dis PN-Objective Data - Labs CBC & Chem 7: 04/08/17 03:45 04/08/17 03:45 Labs: Laboratory Results - last 24 hr 04/08/17 04/08/17 03:45 03:45 WBC 9.3 RBC 2.42 L Hgb 7.1 L Hct 22.2 L MCV 91.7 MCH 29.3 MCHC 32.0 RDW 17.8 H Plt Count 79 L MPV 11.4 Immature Gran % 0.6 Seg Neutrophils % 83.6 Lymphocytes % 7.6 Monocytes % 6.4 Eosinophils % 1.7 Basophils % 0.1 Neutrophils # 7.8 Lymphocytes # 0.7 Monocytes # 0.6 Eosinophils # 0.2 Basophils # 0.0 Immature Plt Fraction 4.2 Sodium 136 Potassium 3.3 L Chloride 101 Carbon Dioxide 26 BUN 45 H Creatinine 2.33 H Est GFR ( Amer) 33 L Est GFR (Non-Af Amer) 27 L BUN/Creatinine Ratio 19 Glucose 120 H Calculated Osmolality 295 Calcium 8.3 L Total Bilirubin 0.9 AST 28 ALT 33 Alkaline Phosphatase 71 Serum Total Protein 5.6 L Albumin 2.1 L Globulin 3.5 Albumin/Globulin Ratio 0.6 L Cultures: Serology 04/06/17 Range/Units 22:01 Stool Occult Blood Negative (Negative) - Impressions Impressions Chest X-Ray 04/07/17 12:49 IMPRESSION: Stable cardiomegaly. Pulmonary vascular congestion. Superimposed pneumonia is difficult to exclude. D/ / Hardik Martines MD / Hardik Martines MD Interpreting Provider: Hardik Martines MD Exam - Constitutional Vitals: Temp Pulse Resp BP Pulse Ox 98.1 F 83 16 116/68 97 04/08/17 11:59 04/08/17 11:59 04/08/17 11:59 04/08/17 11:59 04/08/17 11:59 General appearance: average body habitus, cooperative, no acute distress - Head Head exam: Present: atraumatic, normal inspection, normocephalic - Eye Eye exam: Present: EOMI, normal appearance, PERRL Pupils: Present: normal accommodation - ENT ENT exam: Present: mucous membranes moist - Neck Neck exam: Present: normal inspection - Respiratory Respiratory exam: Present: CTAB. Absent: rales, respiratory distress, rhonchi, wheezes - Cardiovascular Cardiovascular exam: Present: RRR, +S1, +S2 - GI/Abdominal GI/Abdominal exam: Present: normal bowel sounds, soft. Absent: distended, tenderness - Extremities Exam Additional comments: Erythema and tenderness noted to the BLE. 2+ edema noted bilaterally. Erythema noted to the left hand fourth and fifth digits with tenderness and decreased ROM. Erythema noted to the right index finger, improved since yesterday. - Neurological Exam Neurological exam: Present: alert, oriented X3, no focal deficits - Psychiatric Psychiatric exam: Present: normal affect, normal mood - Skin Skin exam: Present: dry, intact, normal color, warm Consult Discharge Plan - Plan Referrals: Benoit Cosme Jr, MD [Primary Care Provider] -
[2017-04-08 14:31] LABS: Uric Acid 8.1 mg/dL (3.5-7.2)
--- NOTE | 2017-04-08 17:55 | Rheumatology Consult Note ---
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 He reports he has had swelling in the toes, ankles, knees, wrists and fingers. - Workup thus far for infectious etiologies has not been revealing. He has had a leukocytosis among other abnormalities. - Uric acid elevated even in the setting of an acute attack; has history of CKD , my suspicion is that he is having a polyarticular gout attack. - He had some palpable fluid on the right knee that I could have considered an arthrocentesis, but in the middle of explaining condition, workup and treatment , his meal tray arrived he asked me to leave so he could eat dinner in peace. I will come back tomorrow and he was agreeable. - I spoke to Dr. Garces about my sucpicion for polyarticular gout, which with the polyarticular involvement could possible explain the leukocytosis. - If not improving clinically, would then proceed with further workup and will the press the issue of arthrocentesis further. - I agree with his initiation of prednisone 40 mg; can continue for 4 days. - I discussed that he should be seen as an outpatient for further evaluation or treatment of gout; he declined needing of my follow-up and wished to return to the care of Dr. Cosme. - I will though stop by tomorrow to perform a clinical exam and if no improvement, revisit further workup. (2) On prednisone therapy Current Visit: Yes Status: Acute Given use of anticoagulation, anemia, ensure gastric protection while on prednisone (3) Leukocytosis Current Visit: Yes Status: Acute Possible related to inflammatory arthritis. Has improved and normalized today. Qualifiers: Leukocytosis type: bandemia Qualified Code(s): D72.825 - Bandemia (4) Hyperuricemia Current Visit: Yes Status: Acute I suspect he has had gouty arthritis for some time. Needs outpatient follow-up once resolved. As above, wishes to return to the care of his PCP. Rheumatology HPI Consult date: 04/08/17 Requesting physician: Hailee Hunt Consult reason: Arthritis Chief complaint: Arthritis History of present illness: Mr. Mcqueen is a 81 year old male with PMH of atrial fibrillation on anticoagulation, HTN, HLT, CKD IV, venous stasis who presented to the hospitalization with swelling, erythema and pain in his lower extremities. He states that this started about 2 days prior to admission, he then had a swelling to his right knee, left hand 4,5th PIP. He states the pain is severe and worse with movement. He reports he has episodes of migrating "arthritis" for years. He has treated this with his PCP with tylenol and prednisone, he reports in the past which has helped. He has not necessarily ever been told he has gout. Throughout his hospialization he had a workup with negative blood cultures, MR showing diffuse edema with a tibial talar joint effusion, negative dopplar of legs and xrays showing degenerative changes. He presented with a leukocytosis, with an anemia, thrombocytopenia. Uric acid checked at 8.1. he has been started on prednisone per primary team. Past Med Surg Social Fam HX - Past Medical History Medical history: atrial fibrillation, coronary artery disease, hyperlipidemia, hypertension, renal disease, venous stasis Psychiatric history: no psych history - Past Surgical History Surgical History: no surgical history, carotid endarterectomy (Right), orthopedic, other (Left knee), other - Social History Smoking Status: Current every day smoker Packs per day: 1/2 PPD Smokeless Tobacco Status: No Alcohol use: occasionally Drug use: none - Family History Father Race: Family Member Ethnicity: Non- Living Status: Age at : 91 Cause of : Old age Hx Family Cardiac Disorders: No Hx Family Respiratory Disorders: No Hx Family Cancer: No Hx Family GI Disorders: No Hx Family Genitourinary Disorders: No Hx Family Endocrine Disorder: No Hx Family Musculoskeletal Disorders: Yes (RA) Hx Family Neuromuscular Disorders: No Hx Family Neurologic Disorders: No Hx Family HEENT Disorders: No Hx Family Autoimmune Disorders: No Hx Family Reproductive Disorders: No Hx Family Psychosocial Disorders: No Hx Family Medical Disorders: No Mother Race: Family Member Ethnicity: Non- Living Status: Age at : 70 Cause of : Heart failure Hx Family Cardiac Disorders: Yes (Heart Murmur) Hx Family Respiratory Disorders: No Hx Family Cancer: No Hx Family GI Disorders: No Hx Family Genitourinary Disorders: No Hx Family Endocrine Disorder: No Hx Family Musculoskeletal Disorders: Yes (RA) Hx Family Neuromuscular Disorders: No Hx Family Neurologic Disorders: No Hx Family HEENT Disorders: No Hx Family Autoimmune Disorders: No Hx Family Reproductive Disorders: No Hx Family Psychosocial Disorders: No Hx Family Medical Disorders: No Brother History Unknown: Yes Race: Family Member Ethnicity: Non- Living Status: Still Living Sister Race: Family Member Ethnicity: Non- Living Status: Age at : 82 Cause of : Heart failure Hx Family Cardiac Disorders: Yes (HF) Hx Family Musculoskeletal Disorders: Yes (Arthritis) Son Race: Family Member Ethnicity: Non- Living Status: Still Living Hx Family Cardiac Disorders: Yes Medications and Allergies Aspirin 81 mg PO DAILY 11/01/15 [History] Cholecalciferol (D-3) [Vitamin D] 2,000 unit PO DAILY 11/01/15 [History] Metoprolol [Lopressor] 50 mg PO BID #60 tablet 11/02/15 [Rx] Acetaminophen [Tylenol] 1,000 mg PO BID 08/16/16 [History] Gluc Alvarez/Chondro Alvarez A/Vit C/Mn [Glucosamine Chondroitin Tab] 1 each PO DAILY [History] Rivaroxaban [Xarelto] 15 mg PO DAILY 08/16/16 [History] Albuterol Sulfate [Proair Hfa] 2 puff IH Q4H PRN 03/17/17 [History] Atorvastatin [Lipitor] 40 mg PO HS 03/17/17 [History] amLODIPine [Norvasc] 5 mg PO BID 03/17/17 [History] Ipratropium/Albuterol Neb [Duoneb] 3 ml IH Q6HR #120 inhsol 03/19/17 [Rx] Furosemide [Lasix] 20 mg PO DAILY 04/04/17 [History] 3 Allergy/AdvReac Type Severity Reaction Status Date / Time No Known Allergies Allergy Verified 11/01/15 00:22 All Systems Review: General - no recent weight loss, weight gain, fatigue or fevers Eyes - no redness, loss of vision ENT - + intermittent dryness of mouth, no oral ulcerations, nasal ulcerations Cardiovascular - no chest pain, palpitations, lightheadedness, syncope; + lower extremity swelling and edema Respiratory - no shortness of breath, difficulty breathing at night, pleuritic chest pain and no cough Gastrointestinal - no nausea, vomiting, diarrhea, bloating; negative hemoccult here Genitourinary - no pain on urination, hematuria, frothy urine or ulcerations. Musculoskeletal - + painful and swollen joints to knee, hands, legs. Reports decreased ROM due to pain in his extremities. Integumentary - Reports wounds on lower extremities with erythema and swelling. He reports redness to his hands. No history of psoriasis. Neurological - no muscle weakness or paresthesias Hematologic/lymphatic - no tender or swollen glands, + history of anemia and no recent blood clots Rheumatology Exam Vital Signs, Last 4 Hours Temp Pulse Resp BP Pulse Ox 04/08/17 17:36 107 16 125/64 92 04/08/17 16:36 98.4 F 107 16 125/64 92 04/08/17 16:14 16 97 Exam: General - Alert and oriented x 3, no acute distress and appears comfortable HEENT - Conjunctiva clear, no alopecia or hair thinning, no facial rash, no nasal or oral mucosal lesions/ulcerations Heme/Lymph - No cervical or supraclavicular lymph node enlargement or tenderness. No pallor. Heart - S1S2 auscultated without murmurs, clicks or rubs. + pitting peripheral edema. Lungs - Unlabored breathing, clear to auscultation bilaterally without wheezes or crackles on anterior exam; no obvious decrease in chest expansion Abdomen - Soft, nontender, nondistended. Unable to palpate any hepatosplenomegaly Skin - No clubbing, nodules, tophi, psoriasis, petichiae, malar rash, telangiectasias, sclerodactyly, digital ulcers. Skin exam on lower extremities limited due to wrapping; he did not wish for me to remove. Neurological - Gait not assess as in bed, muscle strength 5/5 in all four extremities Musculoskeletal - Unable to assess ROM due to pain and his refusal. Synovitis to left hand 4,5th digit with erythema overlying. Right knee small effusion. Ankles unable to assess due to wraps and requested I do not remove them and that he wished to eat. Rheumatology Results 04/09/17 05:06 04/09/17 05:06 Immunology Rheumatoid Factor < 15 IU/mL (0-29) 04/08/17 11:00 All other labs normal. Consult Discharge Plan - Plan Referrals: Benoit Cosme Jr, MD [Primary Care Provider] -
[2017-04-08] MEDS: Vancomycin 1 EACH in D5% in Water 250 ML IVPB SCH (22:17)
[2017-04-09] MEDS: Ipratropium/Albuterol Neb 3 ML IH SCH ×4 (03:54→22:22)
[2017-04-09 05:24] LABS: Basophils % 0.1 %
[2017-04-09] MEDS: Doxycycline 100 MG in 0.9 % Sodium Chloride Mini Bag 100 ML IVPB SCH (05:24)
[2017-04-09 05:26] LABS: Eosinophils % 0.2 %; Hematocrit 22.1 % (37.5-50.1); Hemoglobin 6.9 g/dL (12.9-16.9); Immature Granulocytes % 0.7 % (0-4); Immature Platelets 4.3 % (1.1-6.1); Lymphocytes # 0.5 K/mcL (0.6-4.6); Lymphocytes % 5.4 %; Mean Corpuscular HGB Conc 31.2 g/dL (31.6-35.5); Mean Corpuscular Hemoglobin 28.4 pg (28.0-33.3); Mean Corpuscular Volume 90.9 fL (83.0-100.0); Mean Platelet Volume 11.8 fL (9.4-12.4); Monocytes # 0.5 K/mcL (0.0-1.3); Neutrophils # 7.8 K/mcL (1.6-8.9); Red Blood Count 2.43 M/mcL (4.19-5.50); Red Cell Distribution Width 17.5 % (11.5-14.5); Segmented Neutrophils % 87.6 %
[2017-04-09 05:31] LABS: Albumin 2.1 g/dL (3.5-5.0); Albumin/Globulin Ratio 0.6 (1.1-2.2); Bilirubin,Total 0.5 mg/dL (0.2-1.2); Calcium 8.5 mg/dL (8.6-10.8); Globulin 3.8 g/dL (2.4-3.5); Platelet Count 88 K/mcL (140-400); Potassium 3.9 mEq/L (3.5-4.5); Total Protein 5.9 g/dL (6.0-8.3)
--- NOTE | 2017-04-09 07:59 | Internal Med Progress Note ---
Date of Encounter: 04/09/17 Time of Encounter: 07:52 - Assessment and plan (1) Cellulitis Current Visit: Yes Status: Acute Assessment and plan: Acute on chronic bilateral lower extremity cellulitis, patient has swelling on the fourth and fifth left fingers possibly not infected (suspicious for gout arthitis) * COntinue Prednisone, rheumatoid factor was negative. has a history of venous reflux in his lower extremities and has been seeing the wound care clinic. Patient was admitted with white count of 17.3, Discontinued vancomycin IV (stopped after the 2nd day due to elevated levels) and Zosyn (did not get it every day due to missed order in [facility] Improving on doxycycline IV day 2 Wound care consulted Blood cultures were negative 2. Qualifiers: Site of cellulitis: extremity Site of cellulitis of extremity: lower extremity Laterality: left Qualified Code(s): L03.116 - Cellulitis of left lower limb (2) Anemia Current Visit: Yes Status: Chronic Assessment and plan: Acute blood loss anemia likely secondary to GI bleed, unidentified at source, possibly related to chronic kidney disease exacerbated by aspirin and Xarelto dark tarry stools recently, stool occult blood from lab was negative. Received 1 unit of blood, order another transfusion Iron 8, % saturation 4. Ferrous Sulfate has been started. Xarelto and aspirin have been stopped. EGD and colonoscopy negative for bleeding, masses, or polyps. Monitor CBC and transfuse as needed, might require a capsule study Stool occult blood from lab negative, bedside guaiac positive. Qualifiers: Anemia type: due to chronic kidney disease Chronic kidney disease stage: stage 4 (severe) Qualified Code(s): N18.4 - Chronic kidney disease, stage 4 ( severe); D63.1 - Anemia in chronic kidney disease; D63.1 - Anemia in chronic kidney disease (3) Atrial fibrillation Current Visit: Yes Status: Chronic Assessment and plan: Continue metoprolol, hold aspirin and Xarelto due to anemia Qualifiers: Atrial fibrillation type: chronic Qualified Code(s): I48.2 - Chronic atrial fibrillation (4) GERD (gastroesophageal reflux disease) Current Visit: Yes Status: Chronic Assessment and plan: Continue Protonix Qualifiers: Esophagitis presence: esophagitis presence not specified Qualified Code(s) : K21.9 - Gastro-esophageal reflux disease without esophagitis (5) 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 Continue telemetry. Xarelto and aspirin have been stopped due to anemia requiring transfusion of PRBCs. Continue Lipitor and beta samanta. . Qualifiers: Coronary Disease-Associated Artery/Lesion type: [place] artery [place] vs. transplanted heart: [place] heart Associated angina: angina presence unspecified Qualified Code(s): I25.10 - Atherosclerotic heart disease of [place] coronary artery without angina pectoris (7) HTN (hypertension) Current Visit: Yes Status: Chronic Assessment and plan: Blood pressure has been well controlled in the hospital. Continue home medications. Continue telemetry and to monitor vital signs. Qualifiers: Hypertension type: essential hypertension Qualified Code(s): I10 - Essential (primary) hypertension (8) COPD (chronic obstructive pulmonary disease) Current Visit: Yes Status: Chronic Assessment and plan: No acute exacerbation at this time. Continue telemetry, pulse ox with vital signs. Continue albuterol inhaler, DuoNeb nebs scheduled. Qualifiers: COPD type: unspecified COPD Qualified Code(s): J44.9 - Chronic obstructive pulmonary disease, unspecified (9) Thrombocytopenia Current Visit: Yes Status: Acute Assessment and plan: Patient has a significant decrease in platelets over the last month. Most likely due to chronic disease. Will continue to monitor. Patient may need outpatient follow-up. (10) Cellulitis of both lower extremities Current Visit: Yes Status: Acute (11) Chronic renal insufficiency Current Visit: Yes Status: Acute Qualifiers: Chronic kidney disease stage: stage 4 (severe) Qualified Code(s): N18.4 - Chronic kidney disease, stage 4 (severe) (12) Acute gouty arthritis Current Visit: Yes Status: Acute Assessment and plan: continue prednisone uric acid miguel been above 10 in the past rheumatology recommendations appreciated may start allopurinol after the acute attack is controlled - Subjective Interval history: Complains of less pain and tenderness on his fourth and fifth left fingers, both are less swollen. Denies any chest pain or shortness of breath, swelling on both lower extremities has improved no fevers or chills, no dysuria - Constitutional Vitals: Temp Pulse Resp BP Pulse Ox 98.1 F 88 16 121/64 96 04/09/17 07:27 04/09/17 07:27 04/09/17 07:27 04/09/17 07:27 04/09/17 07:27 General appearance: Present: cooperative, disheveled, A&O X 3, no acute distress , answers questions appropriately. Absent: pleasant Exam: Head Head exam: Present: atraumatic, normocephalic - Eye Eye exam: Present: PERRL, conjuntiva pink, sclera anicteric Pupils: Present: PERRL - Neck Neck exam general surgery: Present: supple, trachea midline. Absent: lymphadenopathy - Respiratory Respiratory exam: Present: decreased breath sounds, CTAB. Absent: accessory muscle use, rales, rhonchi, wheezes - Cardiovascular Cardiovascular exam: Present: RRR, +S1, +S2. Absent: diastolic murmur, gallop, rubs, systolic murmur - GI/Abdominal GI/Abdominal exam: Present: normal bowel sounds, soft, no peritoneal signs. Absent: distended, tenderness - Extremities Exam Extremities exam: Present: pedal edema (+2 pitting edema in both lower extremities), warm, radial pulses palpable and symmetrical. Absent: calf tenderness, cyanotic - Neurological Exam Neurological exam: Present: CN II-XII intact, oriented X3, no focal deficits. Absent: pronater drift, facial droop, speech deficit - Skin Skin exam: Present: dry. Absent: intact Additional comments: Left fifth finger's joints are swollen, mild erythema noticed. erythema in both lower extremities below the knee has improved Internal Medicine: Result - Labs CBC & Chem 7: 04/09/17 05:06 04/09/17 05:06 Labs: Short CBC 04/09/17 Range/Units 05:06 WBC 8.9 (4.3-11.1) K/mcL Hgb 6.9 L (12.9-16.9) g/dL Hct 22.1 L (37.5-50.1) % Plt Count 88 L (140-400) K/mcL Neutrophils # 7.8 (1.6-8.9) K/mcL BMP 04/09/17 05:06 Sodium 136 Potassium 3.9 Chloride 100 Carbon Dioxide 26 BUN 54 H Creatinine 2.41 H Glucose 146 H Calcium 8.5 L Liver Function 04/09/17 Range/Units 05:06 Total Bilirubin 0.5 (0.2-1.2) mg/dL AST 48 H (5-34) Units/L ALT 53 (0-55) Units/L Alkaline Phosphatase 83 (38-126) Units/L Albumin 2.1 L (3.5-5.0) g/dL - ABG Interpretation ABG results: PT/INR, D-dimer PT 15.1 Seconds (9.4-12.1) H 04/05/17 05:20 Consult Discharge Plan - Plan Referrals: Benoit Cosme Jr, MD [Primary Care Provider] -
[2017-04-09] MEDS: Cholecalciferol (D-3) 1,000 UNIT TABLET PO SCH (08:25)
[2017-04-09] MEDS: predniSONE 20 MG TABLET PO SCH (08:25)
[2017-04-09] MEDS: amLODIPine 5 MG TABLET PO SCH ×2 (08:25→21:06)
[2017-04-09] MEDS: Renal Vitamin 1 MG CAPSULE PO SCH (08:25)
[2017-04-09] MEDS: Pantoprazole 40 MG VIAL IVP SCH ×2 (08:26→21:06)
[2017-04-09] MEDS: Furosemide 40 MG/4 ML VIAL IVP SCH ×2 (08:26→18:42)
[2017-04-09] MEDS: Acetaminophen 325 MG TABLET PO PRN ×2 (08:48→21:07)
[2017-04-09] MEDS ORDERED: 0.9 % Sodium Chloride 250 ML ONE (11:40)
[2017-04-09] MEDS: Miconazole 2% ointment 114 GM TUBE TP SCH (14:33)
--- NOTE | 2017-04-09 14:33 | Rheumatology Progress Note ---
Date of Encounter: 04/09/17 Time of Encounter: 14:05 Rheumatology Assess and Plan (1) Inflammatory arthritis Current Visit: Yes Status: Acute - Stable and mildly improved - Again, I approached aspiration of the knee; I explained the need given his acute illness to examine the fluid and he declined. - Given the previous uric acid elevations and current elevation, this is most likely polyarticular gout - I recommend continuation of prednisone 20 mg x 5 days or till resolved but no more than 2 weeks then a taper would be needed - He should be started on allopurinol in the outpatient once no inflammatory arthritis symptoms; again I offered rheumatology follow-up but he declined. - I did speak with Dr. Dong and Dr. Jenkins regarding his care (2) On prednisone therapy Current Visit: Yes Status: Acute Given use of anticoagulation, anemia, ensure gastric protection while on prednisone - Subjective Interval history: Since yesterday, he was started on prednisone. He reports that his right knee, left ankle and hands has mildly improved. He states as long as he is not moving he feels ok. He has not had any fevers, no rashes. Reports the redness in his leg has improve. No shortness of breath No chest pain. No new skin lesions. Exam Vital Signs, Last 4 Hours Temp Pulse Resp BP Pulse Ox 04/09/17 14:21 98.3 F 86 16 125/75 92 04/09/17 12:14 97.6 F 76 16 130/62 93 04/09/17 11:22 98.2 F 85 17 121/63 97 04/09/17 10:42 16 91 Exam: General - Alert and oriented, appears comfortable and without distress Eyes - Conjunctiva clear Skin - Right lower extremity examined (Left dressing had just been changed); erythema noted Cardiac - 2+ pitting edema in the right lower extremity MSK - Right small/medium sized effusion with pain on ROM, left 2nd,3rd PIP with synovitis and tenderness. Pain on ROM. Objective Data 04/09/17 05:06 04/09/17 05:06 Immunology Rheumatoid Factor < 15 IU/mL (0-29) 04/08/17 11:00 All other labs normal. Consult Discharge Plan - Plan Referrals: Benoit Cosme Jr, MD [Primary Care Provider] -
--- NOTE | 2017-04-09 15:03 | Infectious Disease Progress No ---
Date of Encounter: 04/09/17 Time of Encounter: 15:00 - Assessment and Plan (1) Leukocytosis Current Visit: Yes Status: Acute WBC elevated on admission. Etiology unclear: cellulitis vs. other. Resolved. Continue to trend. Qualifiers: Leukocytosis type: bandemia Qualified Code(s): D72.825 - Bandemia (2) Bilateral lower extremity pain Current Visit: Yes Status: Acute Likely secondary to inflammatory arthritis/gout flare. Multiple joints involved including the BLE and bilateral hands. MRI of the left LE showed findings consistent with cellulitis and a moderate tibiotalar joint effusion. The patient could not tolerate having the RLE MRI done. BLE venous doppler studies are negative. WBC has normalized. Per the patient, his legs are improved since prednisone and doxycycline started. Uric acid elevated at 8. ESR and CRP elevated as well. Rheumatoid factor normal. NAYELI pending. Rheumatology consulted and assisting with management. Continue doxycycline 100mg BID, but can change to oral form. The patient is likely benefiting from the anti-inflammatory properties of the doxycycline more so than the antibiotic effects. Monitor renal function and dose-adjust antibiotics. Duration of treatment depends on the clinical picture, but recommend a total of 14 days. (3) Acute gouty arthritis Current Visit: Yes Status: Acute Uric acid 8.1. Likely contributing to the patient's joint and BLE pain. Continue management per the primary and rheumatology teams. (4) Cellulitis Current Visit: Yes Status: Ruled-out Qualifiers: Site of cellulitis: extremity Site of cellulitis of extremity: lower extremity Laterality: left Qualified Code(s): L03.116 - Cellulitis of left lower limb (5) Hand pain Current Visit: Yes Status: Acute Likely secondary to gout. Rheumatology following. Qualifiers: Laterality: bilateral Qualified Code(s): M79.641 - Pain in right hand; M79.642 - Pain in left hand; M79.642 - Pain in left hand (6) Venous insufficiency Current Visit: Yes Status: Acute Location: BLE. Consider compression hose/dressings as the patient can tolerate. Wound care consulted and following. (7) Rssal-az-[id number] kidney injury Current Visit: Yes Status: Acute Improved. Continue to trend. Avoid nephrotoxins as able and dose-adjust antibiotics. Qualifiers: Acute renal failure type: unspecified Chronic kidney disease stage: stage 3 (moderate) Qualified Code(s): N17.9 - Acute kidney failure, unspecified; N18.3 - Chronic kidney disease, stage 3 (moderate); N18.3 - Chronic kidney disease, stage 3 (moderate) (8) Thrombocytopenia Current Visit: Yes Status: Acute Etiology unclear. Recommend hem/onc to evaluate. (9) Anemia Current Visit: Yes Status: Chronic EGD/C-scope negative. Hgb down to 6.9 this morning. Further workup and evaluation by the primary team. Qualifiers: Anemia type: due to chronic kidney disease Chronic kidney disease stage: stage 4 (severe) Qualified Code(s): N18.4 - Chronic kidney disease, stage 4 ( severe); D63.1 - Anemia in chronic kidney disease; D63.1 - Anemia in chronic kidney disease (10) Atrial fibrillation Current Visit: Yes Status: Chronic Qualifiers: Atrial fibrillation type: chronic Qualified Code(s): I48.2 - Chronic atrial fibrillation (11) On prednisone therapy Current Visit: Yes Status: Acute - Subjective Interval history: Patient seen and examined. No acute events noted overnight. Patient states that overall he feels okay today. States that his legs are not painful as long as he does not move them, but the pain when he does move them are improved. He also continues to report improved pain in his bilateral hands. He denies fevers, chills, or rigors. Denies chest pain or shortness of breath. Reports a moist chronic cough. Denies nausea, vomiting, or diarrhea. Denies abdominal pain and states his appetite is good. Denies oral thrush or new skin lesions. Infect Dis PN-Objective Data - Labs CBC & Chem 7: 04/09/17 05:06 04/09/17 05:06 Labs: Laboratory Results - last 24 hr 04/09/17 04/09/17 04/09/17 05:06 05:06 08:15 WBC 8.9 RBC 2.43 L Hgb 6.9 L Hct 22.1 L MCV 90.9 MCH 28.4 MCHC 31.2 L RDW 17.5 H Plt Count 88 L MPV 11.8 Immature Gran % 0.7 Seg Neutrophils % 87.6 Lymphocytes % 5.4 Monocytes % 6.0 Eosinophils % 0.2 Basophils % 0.1 Neutrophils # 7.8 Lymphocytes # 0.5 L Monocytes # 0.5 Eosinophils # 0.0 Basophils # 0.0 Immature Plt Fraction 4.3 Sodium 136 Potassium 3.9 Chloride 100 Carbon Dioxide 26 BUN 54 H Creatinine 2.41 H Est GFR ( Amer) 32 L Est GFR (Non-Af Amer) 26 L BUN/Creatinine Ratio 22 Glucose 146 H Calculated Osmolality 299 Calcium 8.5 L Total Bilirubin 0.5 AST 48 H ALT 53 Alkaline Phosphatase 83 Serum Total Protein 5.9 L Albumin 2.1 L Globulin 3.8 H Albumin/Globulin Ratio 0.6 L Specimen Rejected Labelling Blood Type Antibody Screen Crossmatch 04/09/17 09:10 WBC RBC Hgb Hct MCV MCH MCHC RDW Plt Count MPV Immature Gran % Seg Neutrophils % Lymphocytes % Monocytes % Eosinophils % Basophils % Neutrophils # Lymphocytes # Monocytes # Eosinophils # Basophils # Immature Plt Fraction Sodium Potassium Chloride Carbon Dioxide BUN Creatinine Est GFR ( Amer) Est GFR (Non-Af Amer) BUN/Creatinine Ratio Glucose Calculated Osmolality Calcium Total Bilirubin AST ALT Alkaline Phosphatase Serum Total Protein Albumin Globulin Albumin/Globulin Ratio Specimen Rejected Blood Type O POSITIVE Antibody Screen NEGATIVE Crossmatch See Detail Cultures: Serology 04/06/17 Range/Units 22:01 Stool Occult Blood Negative (Negative) Exam - Constitutional Vitals: Temp Pulse Resp BP Pulse Ox 98.3 F 86 16 125/75 92 04/09/17 14:21 04/09/17 14:21 04/09/17 14:21 04/09/17 14:21 04/09/17 14:21 General appearance: average body habitus, cooperative, no acute distress - Head Head exam: Present: atraumatic, normal inspection, normocephalic - Eye Eye exam: Present: EOMI, normal appearance, PERRL Pupils: Present: normal accommodation - ENT ENT exam: Present: mucous membranes moist - Neck Neck exam: Present: normal inspection - Respiratory Respiratory exam: Present: CTAB. Absent: rales, respiratory distress, rhonchi, wheezes - Cardiovascular Cardiovascular exam: Present: RRR, +S1, +S2 - GI/Abdominal GI/Abdominal exam: Present: normal bowel sounds, soft. Absent: distended, tenderness - Extremities Exam Additional comments: Erythema to the BLE improved, but chip bin conveyor tender. No warmth on palpation. Left knee edema and tenderness improved as well. No warmth or erythema noted. Erythema and tenderness noted to the left hand fourth and fifth digits and right hand index finger. - Neurological Exam Neurological exam: Present: alert, oriented X3, no focal deficits - Psychiatric Psychiatric exam: Present: normal affect, normal mood - Skin Skin exam: Present: dry, intact, normal color, warm Consult Discharge Plan - Plan Referrals: Benoit Cosme Jr, MD [Primary Care Provider] - - Attending Attestation I examined this patient and my medical decision-making was reviewed with the Resident Physician. I agree with the documented findings, disposition and treatment plan as described except to the extent set forth below.
[2017-04-09] MEDS: Doxycycline 100 MG CAPSULE PO SCH (21:06)
[2017-04-09 22:24] LABS: Hemoglobin 7.5 g/dL (12.9-16.9)
[2017-04-10] MEDS: Ipratropium/Albuterol Neb 3 ML IH SCH ×2 (03:45→09:33)
[2017-04-10 04:28] LABS: Hematocrit 24.7 % (37.5-50.1); Hemoglobin 7.8 g/dL (12.9-16.9); Immature Platelets 3.9 % (1.1-6.1); Mean Corpuscular HGB Conc 31.6 g/dL (31.6-35.5); Mean Corpuscular Hemoglobin 28.6 pg (28.0-33.3); Mean Corpuscular Volume 90.5 fL (83.0-100.0); Red Blood Count 2.73 M/mcL (4.19-5.50); Red Cell Distribution Width 17.9 % (11.5-14.5)
[2017-04-10] MEDS: Methyl Salicylate/Menthol 28 GM TUBE TP PRN ×2 (04:34→09:20)
[2017-04-10 04:42] LABS: Calcium 8.9 mg/dL (8.6-10.8); Potassium 4.1 mEq/L (3.5-4.5)
--- NOTE | 2017-04-10 08:48 | Discharge Summary ---
Date of Encounter: 04/10/17 Time of Encounter: 08:41 - Discharge Diagnosis (1) Cellulitis Priority: Primary Status: Ruled-out Comments: Acute on chronic bilateral lower extremity cellulitis, patient has swelling on the fourth and fifth left fingers likely gouty arthritis Qualifiers: Site of cellulitis: extremity Site of cellulitis of extremity: lower extremity Laterality: left Qualified Code(s): L03.116 - Cellulitis of left lower limb (2) Anemia Priority: Primary Status: Chronic Comments: Acute blood loss anemia likely secondary to GI bleed, unidentified source, possibly related to chronic kidney disease exacerbated by aspirin and Xarelto Qualifiers: Anemia type: due to chronic kidney disease Chronic kidney disease stage: stage 4 (severe) Qualified Code(s): N18.4 - Chronic kidney disease, stage 4 ( severe); D63.1 - Anemia in chronic kidney disease; D63.1 - Anemia in chronic kidney disease (3) Atrial fibrillation Priority: Secondary Status: Chronic Qualifiers: Atrial fibrillation type: chronic Qualified Code(s): I48.2 - Chronic atrial fibrillation (4) GERD (gastroesophageal reflux disease) Priority: Secondary Status: Chronic Qualifiers: Esophagitis presence: esophagitis presence not specified Qualified Code(s) : K21.9 - Gastro-esophageal reflux disease without esophagitis (5) 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 transplanted heart: [place] heart Associated angina: angina presence unspecified Qualified Code(s): I25.10 - Atherosclerotic heart disease of [place] coronary artery without angina pectoris (7) HTN (hypertension) Priority: Secondary Status: Chronic Qualifiers: Hypertension type: essential hypertension Qualified Code(s): I10 - Essential (primary) hypertension (8) COPD (chronic obstructive pulmonary disease) Priority: Secondary Status: Chronic Qualifiers: COPD type: unspecified COPD Qualified Code(s): J44.9 - Chronic obstructive pulmonary disease, unspecified (9) Thrombocytopenia Priority: Secondary Status: Acute (10) Cellulitis of both lower extremities Priority: Primary Status: Acute (11) Chronic renal insufficiency Priority: Secondary Status: Acute Qualifiers: Chronic kidney disease stage: stage 4 (severe) Qualified Code(s): N18.4 - Chronic kidney disease, stage 4 (severe) (12) Acute gouty arthritis Priority: Secondary Status: Acute - Discharge Medications Prescriptions: Allopurinol [Zyloprim 100 MG] 100 mg PO DAILY #30 tablet Doxycycline 100 mg PO BID #22 capsule HYDROcodone/Acet 5/325 mg [[place] 5-325 mg] 1 tab PO Q6H PRN #20 tablet PRN Reason: Moderate Pain (4-6) Omeprazole [PriLOSEC] 40 mg PO DAILY #30 cap predniSONE [PredniSONE] 40 mg PO DAILY #5 tablet Home Medications: Cholecalciferol (D-3) [Vitamin D] 2,000 unit PO DAILY 11/01/15 [History] Metoprolol [Lopressor] 50 mg PO BID #60 tablet 11/02/15 [Rx] Acetaminophen [Tylenol] 1,000 mg PO BID 08/16/16 [History] Gluc Alvarez/Chondro Alvarez A/Vit C/Mn [Glucosamine Chondroitin Tab] 1 each PO DAILY [History] Albuterol Sulfate [Proair Hfa] 2 puff IH Q4H PRN 03/17/17 [History] Atorvastatin [Lipitor] 40 mg PO HS 03/17/17 [History] amLODIPine [Norvasc] 5 mg PO BID 03/17/17 [History] Ipratropium/Albuterol Neb [Duoneb] 3 ml IH Q6HR #120 inhsol 03/19/17 [Rx] Furosemide [Lasix] 20 mg PO DAILY 04/04/17 [History] Allopurinol [Zyloprim 100 MG] 100 mg PO DAILY #30 tablet 04/10/17 [Rx] Doxycycline 100 mg PO BID #22 capsule 04/10/17 [Rx] HYDROcodone/Acet 5/325 mg [[place] 5-325 mg] 1 tab PO Q6H PRN #20 tablet 04/10/17 [Rx] Omeprazole [PriLOSEC] 40 mg PO DAILY #30 cap 04/10/17 [Rx] predniSONE [PredniSONE] 40 mg PO DAILY #5 tablet 04/10/17 [Rx] Allergies/Adverse Reactions: 3 Allergy/AdvReac Type Severity Reaction Status Date / Time No Known Allergies Allergy Verified 11/01/15 00:22 Date of admission: 04/04/17 22:55 Primary care physician: Benoit Cosme Jr, MD Consults: 04/05/17 11:10 Consult to Surgery [CONS] Routine Consulting Provider: Surgery [facility] Reason for Consult: Anemia. Guaiac +. Discussed with Dr. Reyes Time Notified: 11:11 Call Completed: Yes 04/06/17 13:26 Consult to Nutrition [CONS] Routine Comment: Consulting Provider: NUTRITION Reason for Dietary Consult: PO Supplementation 04/07/17 09:09 Consult to Infectious Diseases [CONS] Routine Consulting Provider: Infectious Disease [facility] Reason for Consult: Recurrent cellulitis, not improving on current abx. Please evaluate for antibiotic recommendations. Thank you! Time Notified: 09:10 Call Completed: Yes 04/08/17 13:53 Consult to Physician [CONS] Routine Consulting Provider: Surjit Manriquez Reason for Consult: Polyarthralgia Time Notified: 13:54 Call Completed: Yes - Patient Status Disposition: Transfer SNF Condition: Fair Overall status at discharge: patient is progressing back to baseline - Discharge Instructions Follow Up With: Benoit Cosme Jr, MD [Primary Care Provider] - Additional Instructions: Complete 11 more days of doxycycline complete 5 more days of prednisone. Start allopurinol 100 mg daily on 04/14/2017. Follow-up with rheumatology within the next 2 weeks. Hold Xarelto, may restart aspirin in a week 81 mg daily. Continue omeprazole daily, quit smoking. Follow up with GI within the next week to consider a capsule study - Diet and Activity Activity: increase activity as tolerated Diet: low fat, low cholesterol Hospital course: Mr. Mcqueen is a 81 year old male with a past medical history of venous stasis dermatitis with venous ulcers under the care of the [facility], CAD, A- fib on Xarelto, HLD, HTN, gout, and CKD4. The patient was admitted to the hospital 04/04/17 with BLE cellulitis. Was admitted to the hospital with complaints of a two day history of increased pain, redness, and swelling of the BLE. He previously finished a 10 day course of doxycyline about two days prior to onset of symptoms. Upon arrival to the ED , the patient was afebrile and hemodynamically stable. He had a neutrophilic leukocytosis and SAMANTHA. X-rays of the BLE were normal. BLE venous dopplers were negative for DVT. Blood cultures were obtained x 2 sets and the patient was started on IV antibiotics and admitted for further evaluation. Since admission, the patient's WBC improved. He has been afebrile. LLE MRI showed findings consistent with cellulitis and a left tibiotalar joint effusion. The patient refused to have the RLE MRI completed due to pain. The patient was noted to have anemia while here and has an EGD and colonoscopy without finding a possible source of bleeding, has received 3 units of red blood cells. Was kept on Protonix IV. No demonstration of active bleeding. Hemoglobin is 7.8, stable from the prior day's and will receiving another unit of blood. Xarelto and aspirin have been held, the patient has no history of CVAs. Initially he was given IV Vancomycin and Zosyn. Was switched to doxycycline, the patient's leg erythema improved. Was also evaluated by rheumatology, was started on prednisone for gouty arthritis. Uric acid has been high in the past more than 10 noted beginning of this year, during this hospitalization his uric acid level was 8.1. The patient has responded appropriately today prednisone treatment and prefers to be discharged. The patient refused to have a right knee arthrocentesis. Risks were explained. Time spent discussing smoking cessation with patient: 3 to 10 minutes - Time Spent with Patient Total time spent providing and/or coordinating discharge services: Greater than 30 minutes (40 min) - Constitutional Vitals: Temp Pulse Resp BP Pulse Ox 98.3 F 88 17 135/69 96 04/10/17 07:16 04/10/17 07:16 04/10/17 07:16 04/10/17 07:16 04/10/17 07:16 General appearance: Present: cooperative, disheveled, A&O X 3, no acute distress , answers questions appropriately. Absent: pleasant Exam: General - Alert and oriented x 3, no acute distress and appears comfortable HEENT - Conjunctiva clear, no alopecia or hair thinning, no facial rash, no nasal or oral mucosal lesions/ulcerations Heme/Lymph - No cervical or supraclavicular lymph node enlargement or tenderness. No pallor. Heart - S1S2 auscultated without murmurs, clicks or rubs. + pitting peripheral edema. Lungs - Unlabored breathing, clear to auscultation bilaterally without wheezes or crackles on anterior exam; no obvious decrease in chest expansion Abdomen - Soft, nontender, nondistended. Unable to palpate any hepatosplenomegaly Skin - No clubbing, nodules, tophi, psoriasis, petichiae, malar rash, telangiectasias, sclerodactyly, digital ulcers. Skin exam on lower extremities limited due to wrapping; he did not wish for me to remove. Neurological - Gait not assess as in bed, muscle strength 5/5 in all four extremities Musculoskeletal - Unable to assess ROM due to pain and his refusal. Synovitis to left hand 4,5th digit with erythema overlying. Right knee small effusion. Ankles unable to assess due to wraps and requested I do not remove them
--- NOTE | 2017-04-10 09:08 | Physician Discharge Referral ---
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 Status: Chronic (6) CAD (coronary artery disease) Status: Chronic (7) HTN (hypertension) Status: Chronic (8) COPD (chronic obstructive pulmonary disease) Status: Chronic (9) Thrombocytopenia Status: Acute (10) Cellulitis of both lower extremities Status: Acute (11) Chronic renal insufficiency Status: Acute (12) Acute gouty arthritis Status: Acute - Transfer Medications Prescriptions: Allopurinol [Zyloprim 100 MG] 100 mg PO DAILY #30 tablet Doxycycline 100 mg PO BID #22 capsule HYDROcodone/Acet 5/325 mg [[place] 5-325 mg] 1 tab PO Q6H PRN #20 tablet PRN Reason: Moderate Pain (4-6) Omeprazole [PriLOSEC] 40 mg PO DAILY #30 cap predniSONE [PredniSONE] 40 mg PO DAILY #5 tablet Home Medications: Cholecalciferol (D-3) [Vitamin D] 2,000 unit PO DAILY 11/01/15 [History] Metoprolol [Lopressor] 50 mg PO BID #60 tablet 11/02/15 [Rx] Acetaminophen [Tylenol] 1,000 mg PO BID 08/16/16 [History] Gluc Alvarez/Chondro Alvarez A/Vit C/Mn [Glucosamine Chondroitin Tab] 1 each PO DAILY [History] Albuterol Sulfate [Proair Hfa] 2 puff IH Q4H PRN 03/17/17 [History] Atorvastatin [Lipitor] 40 mg PO HS 03/17/17 [History] amLODIPine [Norvasc] 5 mg PO BID 03/17/17 [History] Ipratropium/Albuterol Neb [Duoneb] 3 ml IH Q6HR #120 inhsol 03/19/17 [Rx] Furosemide [Lasix] 20 mg PO DAILY 04/04/17 [History] Allopurinol [Zyloprim 100 MG] 100 mg PO DAILY #30 tablet 04/10/17 [Rx] Doxycycline 100 mg PO BID #22 capsule 04/10/17 [Rx] HYDROcodone/Acet 5/325 mg [[place] 5-325 mg] 1 tab PO Q6H PRN #20 tablet 04/10/17 [Rx] Omeprazole [PriLOSEC] 40 mg PO DAILY #30 cap 04/10/17 [Rx] predniSONE [PredniSONE] 40 mg PO DAILY #5 tablet 04/10/17 [Rx] Allergies/Adverse Reactions: 3 Allergy/AdvReac Type Severity Reaction Status Date / Time No Known Allergies Allergy Verified 11/01/15 00:22 - Respiratory Orders Smoking Cessation: Smoking cessation has been advised. For more information, call the [place] [employer] Quit Line at 0-347-QDGO-NOW. - Advance Directives Code Status: DNR-Arrest/Don't Intubate - Treatments List/Other: Complete 11 more days of doxycycline complete 5 more days of prednisone. Start allopurinol 100 mg daily on 04/14/2017. Follow-up with rheumatology within the next 2 weeks. Hold Xarelto, may restart aspirin in a week 81 mg daily. Continue omeprazole daily, quit smoking. Follow up with GI within the next week to consider a capsule study. Wound care CERTIFICATION: I certify that the transfer of the above named patient to an Extended Care Facility is necessary for the continuing treatment of the diagnosis listed. The above information is true and accurate reflection of patient's current condition. Confidential - Redisclosure prohibited without a patient's written consent.
[2017-04-10] MEDS ORDERED: 0.9 % Sodium Chloride 250 ML ONE (09:17)
[2017-04-10] MEDS: Cholecalciferol (D-3) 1,000 UNIT TABLET PO SCH (09:19)
[2017-04-10] MEDS: Doxycycline 100 MG CAPSULE PO SCH (09:19)
[2017-04-10] MEDS: Pantoprazole 40 MG VIAL IVP SCH (09:19)
[2017-04-10] MEDS: Furosemide 40 MG/4 ML VIAL IVP SCH (09:19)
[2017-04-10] MEDS: Renal Vitamin 1 MG CAPSULE PO SCH (09:19)
[2017-04-10] MEDS: predniSONE 20 MG TABLET PO SCH (09:19)
[2017-04-10] MEDS: amLODIPine 5 MG TABLET PO SCH (09:19)
[2017-04-10] MEDS: Miconazole 2% ointment 114 GM TUBE TP SCH (09:21)
[2017-04-10 12:20] VITALS: BP 132/76
[2017-04-10 14:45] LABS: ANA IgG by ELISA NONE DETECTED (None Detected)
--- NOTE | 2017-04-10 16:02 | Infectious Disease Progress No ---
Date of Encounter: 04/10/17 Time of Encounter: 10:30 - Assessment and Plan (1) Leukocytosis Status: Acute WBC elevated on admission. Etiology unclear: cellulitis vs. other. Resolved. Continue to trend. Qualifiers: Leukocytosis type: bandemia Qualified Code(s): D72.825 - Bandemia (2) Bilateral lower extremity pain Status: Acute Likely secondary to inflammatory arthritis/gout flare. Multiple joints involved including the BLE and bilateral hands. MRI of the left LE showed findings consistent with cellulitis and a moderate tibiotalar joint effusion. The patient could not tolerate having the RLE MRI done. BLE venous doppler studies are negative. WBC has normalized. Per the patient, his legs are improved since prednisone and doxycycline started. Uric acid elevated at 8. ESR and CRP elevated as well. Rheumatoid factor normal. NAYELI pending. Rheumatology consulted and assisting with management. Continue doxycycline 100mg BID PO. The patient is likely benefiting from the anti-inflammatory properties of the doxycycline more so than the antibiotic effects. Monitor renal function and dose-adjust antibiotics. Duration of treatment depends on the clinical picture, but recommend a total of 14 days. (3) Acute gouty arthritis Status: Acute Uric acid 8.1. Likely contributing to the patient's joint and BLE pain. Continue management per the primary and rheumatology teams. (4) Cellulitis Status: Ruled-out Location: BLE. Given the bilateral nature of the symptoms, consider other non-infectious etiologies. See additional recommendations as above. Qualifiers: Site of cellulitis: extremity Site of cellulitis of extremity: lower extremity Laterality: left Qualified Code(s): L03.116 - Cellulitis of left lower limb (5) Hand pain Status: Acute Likely secondary to gout. Rheumatology following. Qualifiers: Laterality: bilateral Qualified Code(s): M79.641 - Pain in right hand; M79.642 - Pain in left hand; M79.642 - Pain in left hand (6) Venous insufficiency Status: Acute Location: BLE. Consider compression hose/dressings as the patient can tolerate. Wound care consulted and following. (7) Zemvi-ix-iikozsm kidney injury Status: Acute Improved. Continue to trend. Avoid nephrotoxins as able and dose-adjust antibiotics. Qualifiers: Acute renal failure type: unspecified Chronic kidney disease stage: stage 3 (moderate) Qualified Code(s): N17.9 - Acute kidney failure, unspecified; N18.3 - Chronic kidney disease, stage 3 (moderate); N18.3 - Chronic kidney disease, stage 3 (moderate) (8) Thrombocytopenia Status: Acute Etiology unclear. Recommend hem/onc to evaluate. (9) Anemia Status: Chronic EGD/C-scope negative. Hgb down to 7.8 this morning. Further workup and evaluation by the primary team. Qualifiers: Anemia type: due to chronic kidney disease Chronic kidney disease stage: stage 4 (severe) Qualified Code(s): N18.4 - Chronic kidney disease, stage 4 ( severe); D63.1 - Anemia in chronic kidney disease; D63.1 - Anemia in chronic kidney disease (10) Atrial fibrillation Status: Chronic Qualifiers: Atrial fibrillation type: chronic Qualified Code(s): I48.2 - Chronic atrial fibrillation (11) On prednisone therapy Status: Acute - Subjective Interval history: Patient seen and examined. No acute events noted overnight. Patient states that overall he feels okay today. States that his legs are not painful as long as he does not move them, but the pain when he does move them are improved. He also continues to report improved pain in his bilateral hands. He denies fevers, chills, or rigors. Denies chest pain or shortness of breath. Reports a moist chronic cough. Denies nausea, vomiting, or diarrhea. Denies abdominal pain and states his appetite is good. Denies oral thrush or new skin lesions. Infect Dis PN-Objective Data - Labs CBC & Chem 7: 04/10/17 04:15 04/10/17 04:15 Labs: Laboratory Results - last 24 hr 04/08/17 04/09/17 04/09/17 13:50 09:10 22:08 WBC RBC Hgb 7.5 L Hct 24.0 L MCV MCH MCHC RDW Plt Count MPV Immature Plt Fraction Sodium Potassium Chloride Carbon Dioxide BUN Creatinine Est GFR ( Amer) Est GFR (Non-Af Amer) BUN/Creatinine Ratio Glucose Calculated Osmolality Calcium NAYELI Screen NONE DETECTED Blood Type O POSITIVE Antibody Screen NEGATIVE Crossmatch See Detail 04/10/17 04/10/17 04:15 04:15 WBC 10.4 RBC 2.73 L Hgb 7.8 L Hct 24.7 L MCV 90.5 MCH 28.6 MCHC 31.6 RDW 17.9 H Plt Count 105 L MPV 11.0 Immature Plt Fraction 3.9 Sodium 138 Potassium 4.1 Chloride 101 Carbon Dioxide 26 BUN 67 H Creatinine 2.82 H Est GFR ( Amer) 26 L Est GFR (Non-Af Amer) 22 L BUN/Creatinine Ratio 24 Glucose 174 H Calculated Osmolality 310 H Calcium 8.9 NAYELI Screen Blood Type Antibody Screen Crossmatch Cultures: Serology 04/06/17 Range/Units 22:01 Stool Occult Blood Negative (Negative) Exam - Constitutional Vitals: Temp Pulse Resp BP Pulse Ox 98.1 F 85 16 132/76 92 04/10/17 12:19 04/10/17 12:19 04/10/17 12:19 04/10/17 12:19 04/10/17 12:19 General appearance: average body habitus, cooperative, no acute distress - Head Head exam: Present: atraumatic, normal inspection, normocephalic - Eye Eye exam: Present: EOMI, normal appearance, PERRL Pupils: Present: normal accommodation - ENT ENT exam: Present: mucous membranes moist - Neck Neck exam: Present: normal inspection - Respiratory Respiratory exam: Present: CTAB. Absent: rales, respiratory distress, rhonchi, wheezes - Cardiovascular Cardiovascular exam: Present: irregular rhythm. Absent: tachycardia - GI/Abdominal GI/Abdominal exam: Present: normal bowel sounds, soft. Absent: distended, tenderness - Extremities Exam Extremities exam: Present: joint swelling (Right knee, left 4th and 5th MCP and PIP joints), pedal edema (1+ BLE), tenderness (BLE, Left hand, right hand) Additional comments: BLE erythema and edema markedly improved. Left hand fourth and fifth digits remain erythematous and edematous. - Neurological Exam Neurological exam: Present: alert, oriented X3, no focal deficits - Psychiatric Psychiatric exam: Present: normal affect, normal mood - Skin Skin exam: Present: dry, intact, normal color, warm Consult Discharge Plan - Plan Additional Instructions: Complete 11 more days of doxycycline complete 5 more days of prednisone. Start allopurinol 100 mg daily on 04/14/2017. Follow-up with rheumatology within the next 2 weeks. Hold Xarelto, may restart aspirin in a week 81 mg daily. Continue omeprazole daily, quit smoking. Follow up with GI within the next week to consider a capsule study Referrals: Benoit Cosme Jr, MD [Primary Care Provider] - Prescriptions: Allopurinol [Zyloprim 100 MG] 100 mg PO DAILY #30 tablet Doxycycline 100 mg PO BID #22 capsule HYDROcodone/Acet 5/325 mg [[place] 5-325 mg] 1 tab PO Q6H PRN #20 tablet PRN Reason: Moderate Pain (4-6) Omeprazole [PriLOSEC] 40 mg PO DAILY #30 cap predniSONE [PredniSONE] 40 mg PO DAILY #5 tablet
== END 2017-04-10 12:54 | DRG 554 ==
LOC: 3BNU 12:33 → EMEROO 12:33 → 3BNU 19:31 → SUATTDRO 22:55 → 3BNU 04-09 17:15
PROVIDERS: ADMIT Registered Nurse; ATTEND Internal Medicine

== ENCOUNTER 2017-07-29 15:54 | Inpatient (IN) ==
[2017-07-29] MEDS ORDERED: Furosemide 40 MG/4 ML VIAL IVP ONE (16:50)
--- NOTE | 2017-07-29 16:57 | Emergency Department Note ---
Disposition Clinical Impression: Acute exacerbation of chronic obstructive airways disease CHF exacerbation Qualifiers: Congestive heart failure type: unspecified Qualified Code(s): I50.9 - Heart failure, unspecified Disposition: Admitted As Inpatient Condition: Fair Time of Disposition: 18:36 SOB HPI - General Chief Complaint: ED Shortness of Breath/Dyspnea Stated Complaint: CHF exacerbation/sob Time Seen by Provider: 07/29/17 16:20 Source: patient Limitations: no limitations Nursing Notes Reviewed: Yes Vital Signs Reviewed: Yes - History of Present Illness 81-year-old male presents complaining of shortness of breath he has a history of CHF, COPD, non-oxygen dependent at baseline, CK D, he was sent in by his renewals specialist due to peripheral edema, worsening exertion, concern for volume overload and heart failure. The patient is seen by Dr. Jones earlier today. The patient currently states that he has been more short of breath last few days although he denies chest pain, hemoptysis, he does report increased leg swelling, and weight gain of about 12 pounds in one week. Pt Subjective Complaint: shortness of breath Onset (ago): minute(s) Severity: moderate Consistency/Duration: intermittent Improves with: oxygen Worsens with: lying flat, exertion Known history of: COPD, congestive heart failure Associated symptoms: Denies: chest pain, pain with inspiration, fever, cough, wheezing Treatment prior to arrival: oxygen Cough present: Yes Cough Description: Voluntary - Related Data Home oxygen amount: 2 liters Home Medications Medication Instructions Recorded Confirmed Cholecalciferol (D-3) [Vitamin D] 2,000 unit PO DAILY 11/01/15 05/23/17 Acetaminophen [Tylenol] 1,000 mg PO BID 08/16/16 05/23/17 Gluc Alvarez/Chondro Alvarez A/Vit C/Mn 1 each PO DAILY 08/16/16 05/23/17 [Glucosamine Chondroitin Tab] Albuterol Sulfate [Proair Hfa] 2 puff IH Q4H PRN 03/17/17 05/23/17 Atorvastatin [Lipitor] 40 mg PO HS 03/17/17 05/23/17 amLODIPine [Norvasc] 5 mg PO BID 03/17/17 05/23/17 Furosemide [Lasix] 20 mg PO DAILY 04/04/17 05/23/17 Previous Rx's Medication Instructions Recorded Metoprolol [Lopressor] 50 mg PO BID #60 tablet 11/02/15 Ipratropium/Albuterol Neb [Duoneb] 3 ml IH Q6HR #120 inhsol 03/19/17 Allopurinol [Zyloprim 100 MG] 100 mg PO DAILY #30 tablet 04/10/17 Omeprazole [PriLOSEC] 40 mg PO DAILY #30 cap 04/10/17 predniSONE [PredniSONE] 40 mg PO DAILY #5 tablet 04/10/17 Allergies Allergy/AdvReac Type Severity Reaction Status Date / Time No Known Allergies Allergy Verified 07/29/17 16:10 All systems ED: reviewed and negative except as stated. Review of Systems: As Per HPI Constitutional: Denies: fever, chills Eyes: Denies: eye pain ENT ED: Denies: ear pain, throat pain Cardiovascular: Denies: chest pain, palpitations Respiratory: Reports: as per HPI, dyspnea. Denies: cough Gastrointestinal: Denies: abdominal pain, nausea Genitourinary: Denies: urgency Musculoskeletal: Denies: back pain Integumentary: Denies: rash, abrasion Neurological: Denies: headache Psychiatric: Denies: anxiety Endocrine: Denies: fatigue Past Medical History - Past Medical History Attestation: Yes The following information was validated with the patient. Source: patient Medical history: Reports: atrial fibrillation, CHF, coronary artery disease, hyperlipidemia, hypertension, renal disease, venous stasis Surgical history: Reports: no surgical history, carotid endarterectomy, orthopedic, other, other Psychiatric history: Reports: no psych history - Social History Smoking Status: Current every day smoker Smokeless Tobacco Status: No Alcohol use: Reports: occasionally Drug use: Reports: none Physical Exam Constitutional: Elderly gentleman with profound exertional and conversational dyspnea Neck: normal inspection, neck is supple, no JVD Resp: Diminished breath sounds at the bases bilaterally. Inspiratory and expiratory wheezes. CV: RRR, no murmurs/gallops/rubs, S1 and S2 heard Extremity: +2 bilateral radial and posterial tibial pulses, +4 pedal edema, +3 edema in the thighs bilaterally GI: normal inspection, Soft, NTND, no peritoneal signs, no palpable abdominal aortic aneurysm Back: normal inspection, no tenderness to palpation Neuro: A&O3, no gross motor or sensory deficits bilaterally MSK: normal inspection, bilateral UE and LE with normal ROM Skin: Erythematous legs consistent with venous stasis dermatitis - General Limitations: no limitations General appearance: alert Course Course Narrative: 81-year-old male with what appears to be volume overload, 12 pounds weight gain , profound pitting edema bilaterally up to the thighs, to manage breath sounds, conversational dyspnea will place on oxygen, patient was sent by the renewals specialist for plan for diuresis in the hospital, plan is for likely admission checking CBC BMP basic lab work reassess. - Reevaluation(s) Reevaluation #1: I reevaluated the patient, plan is for admission to the hospitalist service, I spoke with the nurse practitioner Yasmani Oconnor who agreed to admit the patient at this time, diuresis also had did do an absolute wheezing on exam. An history of COPD. Vital Signs Temperature 98 F 07/29/17 16:11 Pulse Rate 129 07/29/17 16:11 Respiratory Rate 28 07/29/17 16:11 Blood Pressure 115/66 07/29/17 16:11 O2 Sat by Pulse Oximetry 97 07/29/17 16:11 Temperature 98 F 07/29/17 16:11 Pulse Rate 73 07/29/17 18:14 Respiratory Rate 16 07/29/17 18:14 Blood Pressure 131/78 07/29/17 18:14 O2 Sat by Pulse Oximetry 93 07/29/17 18:14 Oxygen Delivery Oxygen Delivery Nasal Cannula Shortness of Breath/Dyspnea - [facility] Narrative Medical decision making narrative: This documentation is done with the assistance of Dragon dictation. There may be inaccuracies in senior web architect or spelling and typographical errors. I examined this patient and my medical decision-making was reviewed with the Resident Physician. I agree with the documented findings, disposition and treatment plan as described except to the extent set forth below. Patient seen and evaluated today by Dr. Franco and myself, I agree with his evaluation and management plan, I supervised the care of the patient's stay. Patient is a history of CHF he has had a 12 pound weight gain or last week. His visor swollen. There are renewals specialist sent him in to be seen Las[facility] lab work and admission. He is in agreement with this plan. He denies any chest pain at this time. Chest X-Ray 07/29/17 16:16 IMPRESSION: Findings of CHF with small pleural effusions. D/ / Aroldo Epstein MD / Aroldo Epstein MD Interpreting Provider: Aroldo Epstein MD 1730 hrs.: Patient does have CHF clinically and on chest x-ray. We will go and bring him into the hospital. - Differential Diagnosis Likely: congestive heart failure, pneumonia, asthma with exacerbation, pulmonary embolism - Medical Records Medical records reviewed: Yes I reviewed the patient's medical records. - Lab Data Lab results reviewed: Yes I reviewed the patient's lab results. Result diagrams: 07/29/17 16:56 07/29/17 16:56 Lab Results 07/29/17 07/29/17 07/29/17 Range/Units 16:56 16:56 16:56 WBC 9.7 (4.3-11.1) K/mcL RBC 3.35 L (4.19-5.50) M/mcL Hgb 10.2 L (12.9-16.9) g/dL Hct 33.6 L (37.5-50.1) % MCV 100.3 H (83.0-100.0) fL MCH 30.4 (28.0-33.3) pg MCHC 30.4 L (31.6-35.5) g/dL RDW 16.4 H (11.5-14.5) % Plt Count 160 (140-400) K/mcL MPV 11.4 (9.4-12.4) fL Immature Gran % 0.4 (0-4) % Seg Neutrophils % 73.2 % Lymphocytes % 9.9 % Monocytes % 7.0 % Eosinophils % 9.0 % Basophils % 0.5 % Neutrophils # 7.1 (1.6-8.9) K/mcL Lymphocytes # 1.0 (0.6-4.6) K/mcL Monocytes # 0.7 (0.0-1.3) K/mcL Eosinophils # 0.9 H (0.0-0.6) K/mcL Basophils # 0.1 (0.0-0.2) K/mcL Sodium 143 (136-145) mEq/L Potassium 4.5 (3.5-5.1) mEq/L Chloride 112 H (98-107) mEq/L Carbon Dioxide 21 L (23-29) mEq/L BUN 62 H (8-23) mg/dL Creatinine 2.79 H (0.70-1.30) mg/dL Est GFR ( Amer) 27 L (> 60) Est GFR (Non-Af Amer) 22 L (> 60) BUN/Creatinine Ratio 22 (6-26) Glucose 104 (70-105) mg/dL Calculated Osmolality 314 H (280-300) Calcium 9.2 (8.6-10.3) mg/dL Total Bilirubin 0.7 (0.3-1.0) mg/dL AST 15 (13-39) Units/L ALT 12 (7-52) Units/L Alkaline Phosphatase 104 (34-104) Units/L Troponin I < 0.03 (< 0.04) ng/mL B-Natriuretic Peptide (Less than 100) pg/mL Serum Total Protein 7.1 (6.4-8.9) g/dL Albumin 4.0 (3.5-5.7) g/dL Globulin 3.1 (2.4-3.5) g/dL Albumin/Globulin Ratio 1.3 (1.1-2.2) 07/29/17 Range/Units 16:56 WBC (4.3-11.1) K/mcL RBC (4.19-5.50) M/mcL Hgb (12.9-16.9) g/dL Hct (37.5-50.1) % MCV (83.0-100.0) fL MCH (28.0-33.3) pg MCHC (31.6-35.5) g/dL RDW (11.5-14.5) % Plt Count (140-400) K/mcL MPV (9.4-12.4) fL Immature Gran % (0-4) % Seg Neutrophils % % Lymphocytes % % Monocytes % % Eosinophils % % Basophils % % Neutrophils # (1.6-8.9) K/mcL Lymphocytes # (0.6-4.6) K/mcL Monocytes # (0.0-1.3) K/mcL Eosinophils # (0.0-0.6) K/mcL Basophils # (0.0-0.2) K/mcL Sodium (136-145) mEq/L Potassium (3.5-5.1) mEq/L Chloride (98-107) mEq/L Carbon Dioxide (23-29) mEq/L BUN (8-23) mg/dL Creatinine (0.70-1.30) mg/dL Est GFR ( Amer) (> 60) Est GFR (Non-Af Amer) (> 60) BUN/Creatinine Ratio (6-26) Glucose (70-105) mg/dL Calculated Osmolality (280-300) Calcium (8.6-10.3) mg/dL Total Bilirubin (0.3-1.0) mg/dL AST (13-39) Units/L ALT (7-52) Units/L Alkaline Phosphatase (34-104) Units/L Troponin I (< 0.04) ng/mL B-Natriuretic Peptide 375 H (Less than 100) pg/mL Serum Total Protein (6.4-8.9) g/dL Albumin (3.5-5.7) g/dL Globulin (2.4-3.5) g/dL Albumin/Globulin Ratio (1.1-2.2) - Radiology Data Radiology results reviewed: Yes I reviewed the patient's radiology results. Chest X-Ray 07/29/17 16:16 IMPRESSION: Findings of CHF with small pleural effusions. D/ / Aroldo Epstein MD / Aroldo Epstein MD Interpreting Provider: Aroldo Epstein MD - EKG Data EKG attestation: Yes I reviewed and interpreted this EKG. EKG shows normal: Reports: sinus rhythm Rate: Reports: tachycardia Rhythm: Reports: A.Fib (70 bpm respiratory QTc 475 atrial fibrillation with no acute ischemic changes.)
[2017-07-29 17:07] LABS: Basophils # 0.1 K/mcL (0.0-0.2); Basophils % 0.5 %; Eosinophils # 0.9 K/mcL (0.0-0.6); Hematocrit 33.6 % (37.5-50.1); Hemoglobin 10.2 g/dL (12.9-16.9); Immature Granulocytes % 0.4 % (0-4); Lymphocytes % 9.9 %; Mean Corpuscular HGB Conc 30.4 g/dL (31.6-35.5); Mean Corpuscular Hemoglobin 30.4 pg (28.0-33.3); Mean Corpuscular Volume 100.3 fL (83.0-100.0); Mean Platelet Volume 11.4 fL (9.4-12.4); Monocytes # 0.7 K/mcL (0.0-1.3); Neutrophils # 7.1 K/mcL (1.6-8.9); Platelet Count 160 K/mcL (140-400); Red Blood Count 3.35 M/mcL (4.19-5.50); Red Cell Distribution Width 16.4 % (11.5-14.5); Segmented Neutrophils % 73.2 %
[2017-07-29 17:18] LABS: Bilirubin,Total 0.7 mg/dL (0.3-1.0); Calcium 9.2 mg/dL (8.6-10.3); Potassium 4.5 mEq/L (3.5-5.1)
[2017-07-29 17:24] LABS: Albumin/Globulin Ratio 1.3 (1.1-2.2); Globulin 3.1 g/dL (2.4-3.5); Total Protein 7.1 g/dL (6.4-8.9)
[2017-07-29] MEDS ORDERED: predniSONE 20 MG TABLET PO ONE (18:10)
[2017-07-29] MEDS ORDERED: Ipratropium/Albuterol Neb 3 ML IH ONE (18:10)
[2017-07-29] MEDS ORDERED: Naloxone 0.4 MG/ML INJ IVP PRN (21:15)
--- NOTE | 2017-07-29 21:25 | Internal Med History&Physical ---
<Yasmani Oconnor - Last Filed: 07/29/17 21:22> Date of Encounter: 07/29/17 Time of Encounter: 21:22 Assessment and Plan (1) COPD with acute exacerbation Current visit: Yes Status: Acute ASSESSMENT: SOB due to an acute exacerbation of COPD secondary to bronchitis and pulmonary vascular congestion secondary to CHF At baseline he reports he is not oxygen dependent, he is requiring 2 L nasal cannula for respiratory support - Continue doxycycline, he was recently prescribed this for bronchitis and has 6 more doses until he is finished - CBCD, CMP in AM - Duo nebs every 4 hours scheduled - Prednisone 40 mg by mouth daily - Resume home medications - Heparin 5000 U SQ BID - Respiratory support per nasal cannula; titrate to maintain SPO2 greater than 92% - Continuous telemetry and SPO2 monitoring (2) Acute CHF Current visit: Yes Status: Acute Acute CHF with chest x-ray showing pulmonary vascular congestion and small pleural effusions Patient is resting comfortable in 2 L nasal cannula is mildly Tachypneic maintaining SPO2 greater than 93% -Continue diuretics and 20 mg IV push daily, the patient does have chronic kidney disease -Continue to closely monitor renal function Qualifiers: Congestive heart failure type: unspecified Qualified Code(s): I50.9 - Heart failure, unspecified (3) Acute kidney injury superimposed on chronic kidney disease Current visit: Yes Status: Acute Creatinine increased from 2.05-2.79 however upon review of prior labs creatinine averages 2.5. GFR also at baseline -Continue to closely monitor renal function as we are giving the patient IV diuretics for CHF, BMP in the a.m. (4) Atrial fibrillation Current visit: Yes Status: Chronic Stable, rate controlled, not on anticoagulation. Qualifiers: Atrial fibrillation type: chronic Qualified Code(s): I48.2 - Chronic atrial fibrillation (5) Bilateral lower extremity edema Current visit: Yes Status: Chronic Secondary to fluid overload and peripheral vascular disease -Continue diuretics (6) CAD (coronary artery disease) Current visit: Yes Status: Chronic Continue aspirin, calcium samanta, beta samanta and statin Qualifiers: Coronary Disease-Associated Artery/Lesion type: [place] artery [place] vs. transplanted heart: [place] heart Associated angina: angina presence unspecified Qualified Code(s): I25.10 - Atherosclerotic heart disease of [place] coronary artery without angina pectoris (7) HLD (hyperlipidemia) Current visit: Yes Status: Chronic Qualifiers: Hyperlipidemia type: pure hypercholesterolemia Qualified Code(s): E78.00 - Pure hypercholesterolemia, unspecified; E78.0 - Pure hypercholesterolemia (8) HTN (hypertension) Current visit: Yes Status: Chronic Stable, continue antihypertensives Qualifiers: Hypertension type: essential hypertension Qualified Code(s): I10 - Essential (primary) hypertension (9) Peripheral vascular disease Current visit: Yes Status: Chronic History of peripheral vascular disease resulting venous stasis dermatitis -Continue diuretics (10) DVT prophylaxis Current visit: Yes Status: Acute Heparin 5000 units SC BID Internal Medicine - H&P: HPI Chief complaint: Shortness of breath and bilateral lower extremity 3+ pitting edema Admitted From: Home Plans for Post Hospital Care: Home History of present illness: Mr. Mcqueen is a 81 year old male with a PMH of CHF, COPD and CKD. Patient reports that for the last 2 weeks of increasing shortness of breath and bilateral lower extremity swelling as well as 12 pound increase in weight. He was at his executive vice president of sales's appointment today and the executive vice president of sales noticed 3+ bilateral lower extremity pitting edema all the way up to his current requested the patient come to the emergency department for admission. He denies any fevers, chills, chest pain, abdominal pain, nausea vomiting diarrhea. He notes that he is not on oxygen at baseline. Initial troponin negative, BNP 375, chest x-ray shows congestion and small pleural effusions Past Med Surg Social Fam HX - Past Medical History Medical history: atrial fibrillation, CHF, coronary artery disease, hyperlipidemia, hypertension, renal disease, venous stasis Psychiatric history: no psych history - Past Surgical History Surgical History: no surgical history, carotid endarterectomy, orthopedic, other , other - Social History Smoking Status: Current every day smoker Smokeless Tobacco Status: No Alcohol use: occasionally Drug use: none - Family History Father Family Member Ethnicity: Non- Living Status: Hx Family Cardiac Disorders: Yes Hx Family Respiratory Disorders: No Hx Family Cancer: No Hx Family GI Disorders: No Hx Family Endocrine Disorder: No Hx Family Neuromuscular Disorders: No Hx Family Neurologic Disorders: No Hx Family HEENT Disorders: No Hx Family Autoimmune Disorders: No Mother Family Member Ethnicity: Non- Living Status: Hx Family Cardiac Disorders: Yes (Heart Murmur) Hx Family Respiratory Disorders: No Hx Family Cancer: No Hx Family GI Disorders: No Hx Family Endocrine Disorder: No Hx Family Neuromuscular Disorders: No Hx Family Neurologic Disorders: No Hx Family HEENT Disorders: No Hx Family Autoimmune Disorders: No Brother Family Member Ethnicity: Non- Living Status: Still Living Sister Family Member Ethnicity: Non- Living Status: Hx Family Cardiac Disorders: Yes (HF) Son Family Member Ethnicity: Non- Living Status: Still Living Hx Family Cardiac Disorders: Yes Internal Medicine - H&P: Meds RX: Cholecalciferol (D-3) [Vitamin D] 2,000 unit PO DAILY 11/01/15 [History] RX: Metoprolol [Lopressor] 50 mg PO BID #60 tablet 11/02/15 [Rx] RX: Acetaminophen [Tylenol] 1,000 mg PO BID 08/16/16 [History] RX: Gluc Alvarez/Chondro Alvarez A/Vit C/Mn [Glucosamine Chondroitin Tab] 1 each PO DAILY 08/16/16 [History] RX: Albuterol Sulfate [Proair Hfa] 2 puff IH Q4H PRN 03/17/17 [History] RX: Atorvastatin [Lipitor] 40 mg PO HS 03/17/17 [History] RX: amLODIPine [Norvasc] 5 mg PO BID 03/17/17 [History] RX: Furosemide [Lasix] 20 mg PO DAILY 04/04/17 [History] Aspirin Enteric Coated [Aspirin EC] 81 mg PO DAILY 07/29/17 [History] Doxycycline Hyclate [Morgidox] 100 mg PO BID 07/29/17 [History] RX: Allopurinol [Zyloprim 100 MG] 200 mg PO DAILY 07/29/17 [History] RX: Ipratropium/Albuterol Neb [Duoneb] 3 ml IH Q6HR PRN 07/29/17 [History] 3 Allergy/AdvReac Type Severity Reaction Status Date / Time No Known Allergies Allergy Verified 07/29/17 16:10 All Systems PM: A 10-system review of systems was performed and is negative for pertinent findings except as documented above in the HPI. - Constitutional Constitutional: as per HPI - EENT Eyes: as per HPI - Cardiovascular Cardiovascular ROS IM: as per HPI, dyspnea, edema, no chest pain, no diaphoresis , no lightheadedness, no palpitations, no syncope - Respiratory Respiratory: as per HPI - Gastrointestinal Gastrointestinal: no abdominal pain, no diarrhea, no hematemesis, no hematochezia, no melena, no nausea, no vomiting - Musculoskeletal Musculoskeletal ROS IM: as per HPI, no numbness, no tingling - Integumentary Integumentary IM: no rash, no unusual bruising - Neurological Neurological ROS: no confusion, no convulsions, no focal weakness, no numbness, no tingling, no tremor(s) - Constitutional Vitals: Temp Pulse Resp BP Pulse Ox 98 F 73 18 138/65 93 07/29/17 16:11 07/29/17 18:14 07/29/17 19:04 07/29/17 19:04 07/29/17 18:53 General appearance: Present: cooperative, A&O X 3, no acute distress, obese, answers questions appropriately - Head Head exam: Present: atraumatic, normocephalic - Eye Eye exam: Present: PERRL, conjuntiva pink, sclera anicteric Pupils: Present: PERRL - Neck Neck exam general surgery: Present: supple, trachea midline. Absent: lymphadenopathy - Respiratory Respiratory exam: Present: prolonged expiratory phase, rales, wheezes, tachypnea. Absent: accessory muscle use, chest wall tenderness, respiratory distress, rhonchi - Cardiovascular Cardiovascular exam: Present: irregular rhythm - GI/Abdominal GI/Abdominal exam: Present: normal bowel sounds, soft. Absent: firm, guarding, rebound, rigid, splenomegaly, tenderness - Extremities Exam Extremities exam: Absent: tenderness - Expanded Lower Extremities Exam Lower Leg exam: Present: erythema, swelling. Absent: tenderness Ankle exam: Present: erythema, swelling. Absent: tenderness 1 - 3+ pitting edema, and erythema - Neurological Exam Neurological exam: Present: CN II-XII intact, oriented X3, no focal deficits. Absent: pronater drift, facial droop, speech deficit - Skin Skin exam: Present: dry, intact Internal Med - H&P Results - Labs CBC & Chem 7: 07/29/17 16:56 07/29/17 16:56 - EKG Data -: EKG Interpreted by Myself - EKG Data EKG comments: Atrial fibrillation with rate control 07/29/17 21:28 - Impressions Impressions Chest X-Ray 07/29/17 16:16 IMPRESSION: Findings of CHF with small pleural effusions. D/ / Aroldo Epstein MD / Aroldo Epstein MD Interpreting Provider: Aroldo Epstein MD <Jorge Caro - Last Filed: 07/30/17 01:12> Date of Encounter: 07/30/17 Internal Medicine - H&P: HPI History of present illness: Mr. Mcqueen is a 81 year old male All Systems PM: A 10-system review of systems was performed and is negative for pertinent findings except as documented above in the HPI. - Constitutional Vitals: Temp Pulse Resp BP Pulse Ox 98.4 F 81 16 142/72 94 07/29/17 19:40 07/29/17 19:40 07/29/17 23:48 07/29/17 19:40 07/29/17 23:48 Internal Med - H&P Results - Labs CBC & Chem 7: 07/29/17 16:56 07/29/17 16:56 Labs: Cardiac Enzymes 07/29/17 Range/Units 22:51 Troponin I < 0.03 (< 0.04) ng/mL - Attending Attestation I have seen and examined this pt independently. I have discussed with [employer] Mr Oconnor regarding the management plan. Agree with the documentation. Pt has A Fib not on any AC b/o recent bleeding. On ASA
[2017-07-29] MEDS: Ipratropium/Albuterol Neb 3 ML IH SCH (23:47)
[2017-07-30] MEDS ORDERED: MethylPREDNISolone 40 MG/ML VIAL IVP SCH
[2017-07-30] MEDS: Ipratropium/Albuterol Neb 3 ML IH SCH ×6 (03:40→23:32)
[2017-07-30] MEDS: *HR* Heparin 5,000 UNIT/ML VIAL SQ SCH ×2 (05:56→16:54)
[2017-07-30 06:02] LABS: Hematocrit 31.3 % (37.5-50.1); Hemoglobin 9.5 g/dL (12.9-16.9); Mean Corpuscular HGB Conc 30.4 g/dL (31.6-35.5); Mean Corpuscular Hemoglobin 30.5 pg (28.0-33.3); Mean Corpuscular Volume 100.6 fL (83.0-100.0); Mean Platelet Volume 12.2 fL (9.4-12.4); Platelet Count 140 K/mcL (140-400); Red Blood Count 3.11 M/mcL (4.19-5.50); Red Cell Distribution Width 16.3 % (11.5-14.5)
[2017-07-30 06:25] LABS: Potassium 4.2 mEq/L (3.5-5.1)
[2017-07-30] MEDS ORDERED: Albuterol 2.5 MG/3 ML NEBULIZER IH PRN (08:17)
[2017-07-30] MEDS ORDERED: Furosemide 40 MG/4 ML VIAL IVP SCH (09:00)
[2017-07-30] MEDS ORDERED: Furosemide 20 MG/2 ML VIAL IVP SCH (09:00)
[2017-07-30] MEDS: amLODIPine 5 MG TABLET PO SCH ×2 (09:26→20:42)
[2017-07-30] MEDS: Cholecalciferol (D-3) 1,000 UNIT TABLET PO SCH (09:26)
[2017-07-30] MEDS: Doxycycline 100 MG CAPSULE PO SCH ×2 (09:26→20:42)
[2017-07-30] MEDS: predniSONE 20 MG TABLET PO SCH (09:26)
[2017-07-30] MEDS: Aspirin Enteric Coated 81 MG Tablet PO SCH (09:27)
[2017-07-30] MEDS ORDERED: Furosemide 20 MG/2 ML VIAL IVP ONE (10:13)
--- NOTE | 2017-07-30 12:19 | Electrocardiograph Report ---
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
--- NOTE | 2017-07-30 13:23 | Internal Med Progress Note ---
Date of Encounter: 07/30/17 Time of Encounter: 13:21 - Assessment and plan (1) Acute CHF Current Visit: Yes Status: Acute Assessment and plan: will continue IV diuresis monitor I/Os, fluid restriction diet, daily weight O2 supplementation as needed Qualifiers: Congestive heart failure type: unspecified Qualified Code(s): I50.9 - Heart failure, unspecified (2) Acute kidney injury superimposed on chronic kidney disease Current Visit: Yes Status: Acute Assessment and plan: renal function appears to be at baseline will continue to monitor (3) Atrial fibrillation Current Visit: Yes Status: Chronic Assessment and plan: rate controlled with BB not on anticoagulation due to history of bleeding Qualifiers: Atrial fibrillation type: chronic Qualified Code(s): I48.2 - Chronic atrial fibrillation (4) CAD (coronary artery disease) Current Visit: Yes Status: Chronic Assessment and plan: no signs of angina present continue home meds (ASA, BB, Statin) Qualifiers: Coronary Disease-Associated Artery/Lesion type: [place] artery [place] vs. transplanted heart: [place] heart Associated angina: angina presence unspecified Qualified Code(s): I25.10 - Atherosclerotic heart disease of [place] coronary artery without angina pectoris (5) COPD with acute exacerbation Current Visit: Yes Status: Acute Assessment and plan: continue prednisone bronchodilator support O2 supplementation pt will need O2 qualification testing for home oxygen prior to discharge pt refuses to quit smoking (6) DVT prophylaxis Current Visit: Yes Status: Acute Assessment and plan: Heparin sQ (7) HLD (hyperlipidemia) Current Visit: Yes Status: Chronic Assessment and plan: continue statin therapy Qualifiers: Hyperlipidemia type: pure hypercholesterolemia Qualified Code(s): E78.00 - Pure hypercholesterolemia, unspecified; E78.0 - Pure hypercholesterolemia (8) Peripheral vascular disease Current Visit: Yes Status: Chronic - Subjective Interval history: Patient seen and examined with family present at bedside. Pt currently saturating well on nasal cannula. Reports of not being on home oxygen and is an every day smoker and is not ready to quit. As per patient and family, pt's b/l LE have been worsening with edema for the last two weeks. - Constitutional Vitals: Temp Pulse Resp BP Pulse Ox 99.0 F 92 18 137/79 95 07/30/17 11:59 07/30/17 11:59 07/30/17 11:59 07/30/17 11:59 07/30/17 11:59 General appearance: Present: A&O X 3, no acute distress, obese, answers questions appropriately - Head Head exam: Present: atraumatic, normocephalic - Eye Eye exam: Present: conjuntiva pink, sclera anicteric - Respiratory Respiratory exam: Absent: respiratory distress, wheezes (coarse breath sounds diffusely with scattered rales ) - Cardiovascular Cardiovascular exam: Present: RRR, +S1, +S2. Absent: diastolic murmur, gallop, rubs, systolic murmur - GI/Abdominal GI/Abdominal exam: Present: normal bowel sounds, soft, no peritoneal signs. Absent: distended, tenderness - Extremities Exam Extremities exam: Present: warm, radial pulses palpable and symmetrical (b/l LE edema (proximal and distal lower extremities)). Absent: calf tenderness - Neurological Exam Neurological exam: Present: alert, oriented X3 - Psychiatric Psychiatric exam: Present: normal affect, normal mood Internal Medicine: Result - Labs CBC & Chem 7: 07/30/17 05:09 07/30/17 05:09 Labs: Short CBC 07/30/17 Range/Units 05:09 WBC 5.5 (4.3-11.1) K/mcL Hgb 9.5 L (12.9-16.9) g/dL Hct 31.3 L (37.5-50.1) % Plt Count 140 (140-400) K/mcL BMP 07/30/17 05:09 Sodium 140 Potassium 4.2 Chloride 111 H Carbon Dioxide 21 L BUN 63 H Creatinine 2.72 H Glucose 227 H Calcium 9.0 Cardiac Enzymes 07/29/17 Range/Units 22:51 Troponin I < 0.03 (< 0.04) ng/mL Consult Discharge Plan - Plan Referrals: Benoit Cosme Jr, MD [Primary Care Provider] - (no one in office at this time)
[2017-07-30] MEDS: Furosemide 40 MG/4 ML VIAL IVP SCH (16:55)
[2017-07-30] MEDS: GuaiFENesin Liq 200 MG/10 ML UDC PO PRN (20:43)
[2017-07-31] MEDS: Ipratropium/Albuterol Neb 3 ML IH SCH ×6 (03:33→23:33)
[2017-07-31 04:33] LABS: Hematocrit 32.9 % (37.5-50.1); Hemoglobin 9.9 g/dL (12.9-16.9); Immature Granulocytes % 0.5 % (0-4); Lymphocytes # 0.8 K/mcL (0.6-4.6); Lymphocytes % 6.2 %; Mean Corpuscular HGB Conc 30.1 g/dL (31.6-35.5); Mean Corpuscular Hemoglobin 30.5 pg (28.0-33.3); Mean Corpuscular Volume 101.2 fL (83.0-100.0); Mean Platelet Volume 11.6 fL (9.4-12.4); Monocytes # 1.1 K/mcL (0.0-1.3); Monocytes % 8.9 %; Neutrophils # 10.2 K/mcL (1.6-8.9); Platelet Count 156 K/mcL (140-400); Red Blood Count 3.25 M/mcL (4.19-5.50); Red Cell Distribution Width 16.4 % (11.5-14.5); Segmented Neutrophils % 84.4 %
[2017-07-31 04:59] LABS: Calcium 9.2 mg/dL (8.6-10.3); Magnesium 2.5 mg/dL (1.6-2.6); Phosphorous 6.3 mg/dL (2.7-4.5); Potassium 4.3 mEq/L (3.5-5.1)
[2017-07-31] MEDS: *HR* Heparin 5,000 UNIT/ML VIAL SQ SCH ×2 (05:22→17:11)
[2017-07-31] MEDS ORDERED: Furosemide 40 MG/4 ML VIAL IVP SCH (09:00)
[2017-07-31] MEDS: Aspirin Enteric Coated 81 MG Tablet PO SCH (09:32)
[2017-07-31] MEDS: Cholecalciferol (D-3) 1,000 UNIT TABLET PO SCH (09:32)
[2017-07-31] MEDS: predniSONE 20 MG TABLET PO SCH (09:32)
[2017-07-31] MEDS: Doxycycline 100 MG CAPSULE PO SCH ×2 (09:32→20:49)
[2017-07-31] MEDS: amLODIPine 5 MG TABLET PO SCH ×2 (09:33→20:49)
[2017-07-31] MEDS: Furosemide 40 MG/4 ML VIAL IVP SCH ×2 (09:33→17:11)
[2017-07-31] MEDS: GuaiFENesin Liq 200 MG/10 ML UDC PO PRN (09:33)
--- NOTE | 2017-07-31 15:39 | Internal Med Progress Note ---
Date of Encounter: 07/31/17 Time of Encounter: 14:05 - Assessment and plan (1) Acute CHF Current Visit: Yes Status: Acute Assessment and plan: will continue IV diuresis monitor I/Os, fluid restriction diet, daily weight O2 supplementation as needed Qualifiers: Congestive heart failure type: unspecified Qualified Code(s): I50.9 - Heart failure, unspecified (2) Acute kidney injury superimposed on chronic kidney disease Current Visit: Yes Status: Resolved Assessment and plan: renal function appears to be at baseline will continue to monitor (3) Atrial fibrillation Current Visit: Yes Status: Chronic Assessment and plan: rate controlled with BB not on anticoagulation due to history of bleeding Qualifiers: Atrial fibrillation type: chronic Qualified Code(s): I48.2 - Chronic atrial fibrillation (4) CAD (coronary artery disease) Current Visit: Yes Status: Chronic Assessment and plan: no signs of angina present continue home meds (ASA, BB, Statin) Qualifiers: Coronary Disease-Associated Artery/Lesion type: [place] artery [place] vs. transplanted heart: [place] heart Associated angina: angina presence unspecified Qualified Code(s): I25.10 - Atherosclerotic heart disease of [place] coronary artery without angina pectoris (5) COPD with acute exacerbation Current Visit: Yes Status: Acute Assessment and plan: continue prednisone bronchodilator support O2 supplementation pt will need O2 qualification testing for home oxygen prior to discharge pt refuses to quit smoking (6) DVT prophylaxis Current Visit: Yes Status: Acute Assessment and plan: Heparin sQ (7) HLD (hyperlipidemia) Current Visit: Yes Status: Chronic Assessment and plan: continue statin therapy Qualifiers: Hyperlipidemia type: pure hypercholesterolemia Qualified Code(s): E78.00 - Pure hypercholesterolemia, unspecified; E78.0 - Pure hypercholesterolemia (8) Peripheral vascular disease Current Visit: Yes Status: Chronic - Subjective Interval history: Patient seen and examined at bedside. Resting in bed and reports of feeling better compared to previous day Noted to be saturating 97-99% on nasal cannula, will titrate off O2 therapy to maintain o2 between 88-92% will continue IV diuresis for another day tentative d/c in am if remains clinically stable - Constitutional Vitals: Temp Pulse Resp BP Pulse Ox 97.5 F L 92 16 125/71 93 07/31/17 10:17 07/31/17 10:17 07/31/17 10:51 07/31/17 10:17 07/31/17 10:51 General appearance: Present: A&O X 3, no acute distress, obese, answers questions appropriately - Head Head exam: Present: atraumatic, normocephalic - Eye Eye exam: Present: conjuntiva pink, sclera anicteric - Respiratory Respiratory exam: Absent: respiratory distress, wheezes (equal air entry bilaterally ) - Cardiovascular Cardiovascular exam: Present: RRR, +S1, +S2. Absent: diastolic murmur, gallop, rubs, systolic murmur - GI/Abdominal GI/Abdominal exam: Present: normal bowel sounds, soft, no peritoneal signs. Absent: distended, tenderness - Extremities Exam Extremities exam: Present: warm, radial pulses palpable and symmetrical (b/l LE edema ). Absent: calf tenderness - Neurological Exam Neurological exam: Present: alert, oriented X3 - Psychiatric Psychiatric exam: Present: normal affect, normal mood Internal Medicine: Result - Labs CBC & Chem 7: 07/31/17 03:46 07/31/17 03:46 Labs: Short CBC 07/31/17 Range/Units 03:46 WBC 12.1 H D (4.3-11.1) K/mcL Hgb 9.9 L (12.9-16.9) g/dL Hct 32.9 L (37.5-50.1) % Plt Count 156 (140-400) K/mcL Neutrophils # 10.2 H (1.6-8.9) K/mcL BMP 07/31/17 03:46 Sodium 141 Potassium 4.3 Chloride 111 H Carbon Dioxide 20 L BUN 66 H Creatinine 2.62 H Glucose 128 H Calcium 9.2 Consult Discharge Plan - Plan Referrals: Benoit Cosme Jr, MD [Primary Care Provider] - (no one in office at this time)
[2017-08-01] MEDS: Ipratropium/Albuterol Neb 3 ML IH SCH ×3 (03:18→11:02)
[2017-08-01 03:36] LABS: Basophils % 0.1 %; Hematocrit 30.4 % (37.5-50.1); Hemoglobin 9.4 g/dL (12.9-16.9); Immature Granulocytes % 0.5 % (0-4); Lymphocytes # 0.6 K/mcL (0.6-4.6); Mean Corpuscular HGB Conc 30.9 g/dL (31.6-35.5); Mean Corpuscular Hemoglobin 30.8 pg (28.0-33.3); Mean Corpuscular Volume 99.7 fL (83.0-100.0); Mean Platelet Volume 11.2 fL (9.4-12.4); Monocytes # 0.4 K/mcL (0.0-1.3); Monocytes % 4.3 %; Neutrophils # 8.9 K/mcL (1.6-8.9); Platelet Count 128 K/mcL (140-400); Red Blood Count 3.05 M/mcL (4.19-5.50); Red Cell Distribution Width 16.1 % (11.5-14.5); Segmented Neutrophils % 89.1 %
[2017-08-01 03:58] LABS: Calcium 9.1 mg/dL (8.6-10.3); Magnesium 2.4 mg/dL (1.6-2.6); Phosphorous 5.9 mg/dL (2.7-4.5); Potassium 4.4 mEq/L (3.5-5.1)
[2017-08-01] MEDS: *HR* Heparin 5,000 UNIT/ML VIAL SQ SCH (05:40)
[2017-08-01] MEDS: Aspirin Enteric Coated 81 MG Tablet PO SCH (10:18)
[2017-08-01] MEDS: Furosemide 40 MG/4 ML VIAL IVP SCH (10:18)
[2017-08-01] MEDS: amLODIPine 5 MG TABLET PO SCH (10:18)
[2017-08-01] MEDS: predniSONE 20 MG TABLET PO SCH (10:19)
[2017-08-01] MEDS: Cholecalciferol (D-3) 1,000 UNIT TABLET PO SCH (10:20)
[2017-08-01 11:33] VITALS: BP 146/70
--- NOTE | 2017-08-01 12:54 | Discharge Summary ---
Date of Encounter: 08/01/17 Time of Encounter: 12:35 - Discharge Diagnosis (1) Acute kidney injury superimposed on chronic kidney disease Priority: Secondary Status: Resolved (2) Atrial fibrillation Priority: Secondary Status: Chronic Qualifiers: Atrial fibrillation type: chronic Qualified Code(s): I48.2 - Chronic atrial fibrillation (3) CAD (coronary artery disease) Priority: Secondary Status: Chronic Qualifiers: Coronary Disease-Associated Artery/Lesion type: [place] artery [place] vs. transplanted heart: [place] heart Associated angina: angina presence unspecified Qualified Code(s): I25.10 - Atherosclerotic heart disease of [place] coronary artery without angina pectoris (4) COPD with acute exacerbation Priority: Primary Status: Acute (5) DVT prophylaxis Priority: Secondary Status: Acute (6) HLD (hyperlipidemia) Priority: Secondary Status: Chronic Qualifiers: Hyperlipidemia type: pure hypercholesterolemia Qualified Code(s): E78.00 - Pure hypercholesterolemia, unspecified; E78.0 - Pure hypercholesterolemia (7) Peripheral vascular disease Priority: Secondary Status: Chronic (8) Acute exacerbation of CHF (congestive heart failure) Priority: Primary Status: Acute Qualifiers: Qualified Code(s): I50.9 - Heart failure, unspecified - Discharge Medications Prescriptions: Budesonide/Formoterol 160/4.5 [Symbicort 160/4.5] 1 puff IH BIDR #1 hfa.aer.ad Furosemide [Lasix] 40 mg PO BID #60 tablet predniSONE [PredniSONE] 40 mg PO DAILY #3 tablet Home Medications: Cholecalciferol (D-3) [Vitamin D] 2,000 unit PO DAILY 11/01/15 [History] Metoprolol [Lopressor] 50 mg PO BID #60 tablet 11/02/15 [Rx] Acetaminophen [Tylenol] 1,000 mg PO BID 08/16/16 [History] Gluc Alvarez/Chondro Alvarez A/Vit C/Mn [Glucosamine Chondroitin Tab] 1 each PO DAILY [History] Albuterol Sulfate [Proair Hfa] 2 puff IH Q4H PRN 03/17/17 [History] Atorvastatin [Lipitor] 40 mg PO HS 03/17/17 [History] amLODIPine [Norvasc] 5 mg PO BID 03/17/17 [History] Allopurinol [Zyloprim 100 MG] 200 mg PO DAILY 07/29/17 [History] Aspirin Enteric Coated [Aspirin EC] 81 mg PO DAILY 07/29/17 [History] Ipratropium/Albuterol Neb [Duoneb] 3 ml IH Q6HR PRN 07/29/17 [History] Budesonide/Formoterol 160/4.5 [Symbicort 160/4.5] 1 puff IH BIDR #1 hfa.aer.ad 08/01/17 [Rx] Furosemide [Lasix] 40 mg PO BID #60 tablet 08/01/17 [Rx] predniSONE [PredniSONE] 40 mg PO DAILY #3 tablet 08/01/17 [Rx] Allergies/Adverse Reactions: 3 Allergy/AdvReac Type Severity Reaction Status Date / Time No Known Allergies Allergy Verified 07/29/17 16:10 Date of admission: 07/29/17 21:15 Primary care physician: Benoit Cosme Jr, MD Discharging clinician: Marry Ordoñez Anticipated date of discharge: 08/01/17 - Patient Status Disposition: Home, Self-Care Condition: Good Functional capacity at discharge: independent ambulation - Discharge Instructions Follow Up With: Benoit Cosme Jr, MD [Primary Care Provider] - (no one in office at this time called and no one answered) Mars Jones DO [Partnered Physician] - (Cardio will call patient for an appt.) Additional Instructions: Please follow up with your primary care physician within five days after your discharge from the hospital. Please follow up with pulmonology and cardiology within one to two weeks after your discharge from the hospital. Your home dose of lasix has been increased to 40mg twice a day. Continue Prednisone for three more days. You have finished your ten days of Doxycycline. Symbicort inhaler twice a day has been added to your home medications. Resume all other medications as prescribed by your primary care physician. Please adhere to a 2L fluid restriction diet after discharge. - Diet and Activity Activity: resume usual activities as tolerated Diet: low fat, low cholesterol, low salt diet Hospital course: Mr. Mcqueen is a 81 year old male with PMH of CHF, COPD and CKD was admitted for acute respiratory distress secondary to CHF exacerbation and COPD exacerbation. He was started on IV diuretics and systemic steroids. He responded appropriately to therapy. He initially required O2 supplementation but was able to be titrated off the O2 therapy as his symptoms improved. He underwent 6 minute O2 qualification testing and did not qualify for home oxygen. At this time he is back to his baseline respiratory status. He will be discharged to home with follow up with PCP, pulm, and cardiology. - Time Spent with Patient Total time spent providing and/or coordinating discharge services: - Constitutional Vitals: Temp Pulse Resp BP Pulse Ox 97.2 F L 94 18 146/70 94 08/01/17 11:30 08/01/17 11:30 08/01/17 11:30 08/01/17 11:30 08/01/17 11:30 General appearance: Present: A&O X 3, no acute distress, obese, answers questions appropriately - Head Head exam: Present: atraumatic, normocephalic - Eye Eye exam: Present: conjuntiva pink, sclera anicteric - Respiratory Respiratory exam: Absent: rales (equal air entry bilaterally ), respiratory distress, wheezes - Cardiovascular Cardiovascular exam: Present: RRR, +S1, +S2. Absent: diastolic murmur, gallop, rubs, systolic murmur - GI/Abdominal GI/Abdominal exam: Present: normal bowel sounds, soft, no peritoneal signs. Absent: distended, tenderness - Extremities Exam Extremities exam: Present: pedal edema, warm, radial pulses palpable and symmetrical. Absent: calf tenderness - Neurological Exam Neurological exam: Present: alert, oriented X3 - Psychiatric Psychiatric exam: Present: normal affect, normal mood
== END 2017-08-01 13:56 | disposition home or self-care (01) | DRG 292 ==
LOC: EMEROO 15:54 → 2ANU 15:54
PROVIDERS: ADMIT Nurse Practitioner; ATTEND Internal Medicine

== ENCOUNTER 2020-04-11 09:25 | Inpatient (IN) ==
[2020-04-11] MEDS ORDERED: Tdap (Boostrix) Vaccine 0.5 ML SYRINGE IM ONE (09:39)
[2020-04-11 09:56] LABS: Basophils % 0.3 %; Eosinophils # 0.1 K/mcL (0.0-0.6); Eosinophils % 0.7 %; Hematocrit 45.7 % (37.5-50.1); Hemoglobin 13.7 g/dL (12.9-16.9); Immature Granulocytes % 0.8 % (0-4); Lymphocytes # 0.5 K/mcL (0.6-4.6); Lymphocytes % 3.5 %; Mean Corpuscular Hemoglobin 31.7 pg (28.0-33.3); Mean Corpuscular Volume 105.8 fL (83.0-100.0); Mean Platelet Volume 11.4 fL (9.4-12.4); Monocytes # 0.6 K/mcL (0.0-1.3); Monocytes % 4.6 %; Neutrophils # 12.6 K/mcL (1.6-8.9); Platelet Count 188 K/mcL (140-400); Red Blood Count 4.32 M/mcL (4.19-5.50); Red Cell Distribution Width 16.3 % (11.5-14.5); Segmented Neutrophils % 90.1 %
[2020-04-11 10:11] LABS: INR 1.1; Prothrombin Time 12.8 Seconds (9.4-12.1)
[2020-04-11 10:15] LABS: Calcium 9.4 mg/dL (8.6-10.3); Potassium 4.7 mEq/L (3.5-5.1)
[2020-04-11] MEDS ORDERED: Lidocaine/EPI 1:100k 2% 20 ML VIAL INFILT ONE (10:56)
[2020-04-11] MEDS ORDERED: Azithromycin 500 MG in 0.9 % Sodium Chloride 250 ML IVPB ONE (11:16)
[2020-04-11] MEDS ORDERED: cefTRIAXone 1,000 MG in 0.9 % Sodium Chloride Mini Bag 100 ML IVPB ONE (11:16)
[2020-04-11] MEDS ORDERED: Naloxone 0.4 MG/ML INJ IVP PRN (12:36)
[2020-04-11] MEDS ORDERED: Ondansetron 4 MG/2 ML VIAL IVP PRN (12:36)
[2020-04-11] MEDS ORDERED: Furosemide 40 MG/4 ML VIAL IVP ONE (14:17)
[2020-04-11] MEDS ORDERED: Vancomycin 1,500 MG/265 ML IV.SOLN IVPB ONE (15:00)
[2020-04-11] MEDS: Ipratropium/Albuterol Neb 3 ML IH SCH ×3 (15:52→22:46)
[2020-04-11 15:56] LABS: ABG Base Excess -2 mEq/L (-2 to 3); ABG HCO3 27 mEq/L (21-27); ABG Oxygen Saturation 90 % (95-98); ABG PCO2 63 mmHg (35-45); ABG PH 7.25 pH Units (7.32-7.45); ABG PO2 70 mmHg (85-104); ABG TCO2 29 mEq/L (20-26)
[2020-04-11] MEDS ORDERED: methylPREDNISolone 125 MG/2 ML VIAL IVP ONE (16:02)
[2020-04-11] MEDS: *HR* Heparin 5,000 UNIT/ML VIAL SQ SCH (17:54)
[2020-04-11] MEDS: Piperacillin/Tazobactam 3.375 GM in 0.9 % Sodium Chloride Mini Bag 100 ML IVPB SCH (17:54)
[2020-04-11] MEDS ORDERED: MethylPREDNISolone 40 MG/ML VIAL IVP SCH (18:00)
[2020-04-11 20:54] LABS: ABG Base Excess -1 mEq/L (-2 to 3); ABG HCO3 26 mEq/L (21-27); ABG Oxygen Saturation 95 % (95-98); ABG PCO2 52 mmHg (35-45); ABG PH 7.31 pH Units (7.32-7.45); ABG PO2 85 mmHg (85-104); ABG TCO2 28 mEq/L (20-26)
[2020-04-11] MEDS ORDERED: *HR* Metoprolol 5 MG/5 ML VIAL IVP ONE (22:09)
[2020-04-11] MEDS ORDERED: *HR* LORazepam 2 MG/ML VIAL IVP ONE (22:54)
[2020-04-12] MEDS: Piperacillin/Tazobactam 3.375 GM in 0.9 % Sodium Chloride Mini Bag 100 ML IVPB SCH ×3 (00:34→15:56)
[2020-04-12 00:44] LABS: ABG Base Excess -1 mEq/L (-2 to 3); ABG HCO3 29 mEq/L (21-27); ABG Oxygen Saturation 88 % (95-98); ABG PCO2 73 mmHg (35-45); ABG PH 7.21 pH Units (7.32-7.45); ABG PO2 69 mmHg (85-104); ABG TCO2 32 mEq/L (20-26)
[2020-04-12] MEDS: Ipratropium/Albuterol Neb 3 ML IH SCH ×4 (04:06→22:16)
[2020-04-12] MEDS: *HR* Heparin 5,000 UNIT/ML VIAL SQ SCH ×2 (06:16→16:59)
[2020-04-12] MEDS: MethylPREDNISolone 40 MG/ML VIAL IVP SCH ×2 (06:20→16:59)
[2020-04-12] MEDS ORDERED: *HR* LORazepam 2 MG/ML VIAL IVP ONE (06:44)
[2020-04-12 07:47] LABS: ABG Base Excess -2 mEq/L (-2 to 3); ABG HCO3 26 mEq/L (21-27); ABG Oxygen Saturation 95 % (95-98); ABG PCO2 60 mmHg (35-45); ABG PH 7.25 pH Units (7.32-7.45); ABG PO2 89 mmHg (85-104); ABG TCO2 28 mEq/L (20-26)
[2020-04-12] MEDS ORDERED: Azithromycin 500 MG in 0.9 % Sodium Chloride 250 ML IVPB SCH (09:00)
[2020-04-12 10:12] LABS: Calcium 8.6 mg/dL (8.6-10.3); Magnesium 2.6 mg/dL (1.6-2.6)
[2020-04-12 12:26] LABS: Basophils % 0.1 %; Hematocrit 44.8 % (37.5-50.1); Hemoglobin 13.3 g/dL (12.9-16.9); Immature Granulocytes % 0.7 % (0-4); Lymphocytes # 0.3 K/mcL (0.6-4.6); Mean Corpuscular HGB Conc 29.7 g/dL (31.6-35.5); Mean Corpuscular Hemoglobin 31.3 pg (28.0-33.3); Mean Corpuscular Volume 105.4 fL (83.0-100.0); Mean Platelet Volume 11.6 fL (9.4-12.4); Monocytes # 0.3 K/mcL (0.0-1.3); Monocytes % 2.2 %; Platelet Count 167 K/mcL (140-400); Red Blood Count 4.25 M/mcL (4.19-5.50); White Blood Count 13.7 K/mcL (4.3-11.1)
[2020-04-12 13:13] LABS: Adenovirus Not Detected (Not Detect); Bordetella Pertussis Not Detected (Not Detect); Chlamydophila pneumoniae Not Detected (Not Detect); Coronavirus 229E Not Detected (Not Detect); Coronavirus HKU1 Not Detected (Not Detect); Coronavirus NL63 Not Detected (Not Detect); Coronavirus OC43 Not Detected (Not Detect); Human Metapneumovirus Not Detected (Not Detect); Human Rhinovirus/Enterovirus Not Detected (Not Detect); Influenza A Subtype 2009 H1 Not Detected (Not Detect); Influenza B Not Detected (Not Detect); Mycoplasma pneumoniae Not Detected (Not Detect); Parainfluenza Virus 1 Not Detected (Not Detect); Parainfluenza Virus 2 Not Detected (Not Detect); Parainfluenza Virus 3 Not Detected (Not Detect); Parainfluenza Virus 4 Not Detected (Not Detect); Respiratory Syncytial Virus Not Detected (Not Detect); SARS-CoV-2 Not Detected (Not Detect)
[2020-04-12] MEDS: Azithromycin 500 MG in 0.9 % Sodium Chloride 250 ML IVPB SCH (14:31)
[2020-04-12] MEDS: Vancomycin 1,500 MG/265 ML IV.SOLN IVPB SCH (16:59)
[2020-04-13] MEDS: Piperacillin/Tazobactam 3.375 GM in 0.9 % Sodium Chloride Mini Bag 100 ML IVPB SCH ×3 (00:49→18:31)
[2020-04-13] MEDS: Ipratropium/Albuterol Neb 3 ML IH SCH ×2 (04:07→11:10)
[2020-04-13] MEDS: *HR* Heparin 5,000 UNIT/ML VIAL SQ SCH ×2 (04:55→17:58)
[2020-04-13] MEDS: MethylPREDNISolone 40 MG/ML VIAL IVP SCH ×2 (05:02→18:32)
[2020-04-13 05:24] LABS: Basophils % 0.1 %; Hematocrit 40.6 % (37.5-50.1); Hemoglobin 12.3 g/dL (12.9-16.9); Immature Granulocytes % 1.2 % (0-4); Lymphocytes # 0.2 K/mcL (0.6-4.6); Lymphocytes % 1.4 %; Mean Corpuscular HGB Conc 30.3 g/dL (31.6-35.5); Mean Corpuscular Hemoglobin 32.3 pg (28.0-33.3); Mean Corpuscular Volume 106.6 fL (83.0-100.0); Mean Platelet Volume 11.7 fL (9.4-12.4); Monocytes # 0.8 K/mcL (0.0-1.3); Monocytes % 5.1 %; Neutrophils # 14.8 K/mcL (1.6-8.9); Nucleated Red Blood Cells 0.1 /100 WBC (0); Platelet Count 161 K/mcL (140-400); Red Blood Count 3.81 M/mcL (4.19-5.50); Red Cell Distribution Width 16.1 % (11.5-14.5); Segmented Neutrophils % 92.2 %
[2020-04-13 05:42] LABS: Calcium 8.8 mg/dL (8.6-10.3); Magnesium 2.7 mg/dL (1.6-2.6); Phosphorous 4.9 mg/dL (2.7-4.5); Potassium 4.6 mEq/L (3.5-5.1)
[2020-04-13] MEDS: Nicotine 14 MG PATCH.TD24 TD SCH (08:27)
[2020-04-13] MEDS: Cholecalciferol (D-3) 1,000 UNIT (25MCG) TABLET PO SCH (08:27)
[2020-04-13] MEDS: allopurinoL 300 MG TABLET PO SCH (08:28)
[2020-04-13] MEDS: calcitrioL 0.25 MCG CAPSULE PO SCH (08:28)
[2020-04-13] MEDS: Aspirin Enteric Coated 81 MG Tablet PO SCH (08:28)
[2020-04-13] MEDS ORDERED: *HR* FentaNYL (PF) 100 MCG/2 ML VIAL ONE (10:29)
[2020-04-13] MEDS ORDERED: Ondansetron 4 MG/2 ML VIAL ONE (10:29)
[2020-04-13] MEDS ORDERED: *HR* Succinylcholine 200 MG/10 ML VIAL IVP ONE (10:29)
[2020-04-13] MEDS ORDERED: Dexamethasone 4 MG/ML VIAL ONE (10:29)
[2020-04-13] MEDS ORDERED: Lidocaine -MPF 2% 2 ML VIAL ONE (10:29)
[2020-04-13] MEDS ORDERED: *HR* Rocuronium Bromide 50 MG/5 ML VIAL ONE (10:29)
[2020-04-13] MEDS ORDERED: Lidocaine -MPF 4% 5 ML AMPUL ONE (10:29)
[2020-04-13] MEDS ORDERED: *HR* Propofol 200 MG/20 ML VIAL IVP ONE (10:30)
[2020-04-13] MEDS ORDERED: *HR* PHENYLEPHRINE 1,000 MCG/10 ML SYRINGE IVP ONE (11:01)
[2020-04-13] MEDS ORDERED: *HR* EPINEPHrine 1 MG/10 ML SYRINGE INTRATRACH PRN (11:17)
[2020-04-13] MEDS: Azithromycin 500 MG in 0.9 % Sodium Chloride 250 ML IVPB SCH (12:51)
[2020-04-13 14:24] LABS: Calcium 8.8 mg/dL (8.6-10.3); Magnesium 2.9 mg/dL (1.6-2.6); Potassium 5.5 mEq/L (3.5-5.1)
[2020-04-13] MEDS ORDERED: Calcium Gluconate 1gm/50mL 1 GM/50 ML BAG IVPB ONE (14:37)
[2020-04-13] MEDS ORDERED: Levalbuterol Neb 1.25 MG/3 ML ONE (14:40)
[2020-04-13 15:12] LABS: Troponin I 0.05 ng/mL (< 0.04)
[2020-04-13] MEDS: Ipratropium Neb 0.5 MG NEBULIZER IH SCH ×2 (17:11→22:22)
[2020-04-13] MEDS: Levalbuterol Neb 0.63 MG/3 ML IH SCH ×2 (17:11→22:22)
[2020-04-13] MEDS: Vancomycin 1,500 MG/265 ML IV.SOLN IVPB SCH (18:31)
[2020-04-13 19:32] LABS: Appearance of Body Fluid Cloudy (Clear); Volume of Body Fluid 25 mL
[2020-04-14 02:19] LABS: Basophils % 0.2 %; Hematocrit 42.5 % (37.5-50.1); Hemoglobin 12.6 g/dL (12.9-16.9); Immature Granulocytes % 1.1 % (0-4); Lymphocytes # 0.2 K/mcL (0.6-4.6); Lymphocytes % 1.2 %; Mean Corpuscular HGB Conc 29.6 g/dL (31.6-35.5); Mean Corpuscular Hemoglobin 32.2 pg (28.0-33.3); Mean Corpuscular Volume 108.7 fL (83.0-100.0); Mean Platelet Volume 11.8 fL (9.4-12.4); Monocytes # 1.3 K/mcL (0.0-1.3); Monocytes % 6.7 %; Neutrophils # 17.6 K/mcL (1.6-8.9); Nucleated Red Blood Cells 0.1 /100 WBC (0); Platelet Count 185 K/mcL (140-400); Red Blood Count 3.91 M/mcL (4.19-5.50); Red Cell Distribution Width 16.8 % (11.5-14.5); Segmented Neutrophils % 90.8 %; White Blood Count 19.4 K/mcL (4.3-11.1)
[2020-04-14 02:42] LABS: Calcium 8.9 mg/dL (8.6-10.3); Potassium 5.3 mEq/L (3.5-5.1)
[2020-04-14] MEDS: Ipratropium Neb 0.5 MG NEBULIZER IH SCH ×2 (03:54→10:37)
[2020-04-14] MEDS: Levalbuterol Neb 0.63 MG/3 ML IH SCH ×2 (03:54→10:37)
[2020-04-14 04:15] LABS: Troponin I 0.06 ng/mL (< 0.04)
[2020-04-14] MEDS: MethylPREDNISolone 40 MG/ML VIAL IVP SCH (04:54)
[2020-04-14] MEDS: *HR* Heparin 5,000 UNIT/ML VIAL SQ SCH (04:55)
[2020-04-14] MEDS: Piperacillin/Tazobactam 3.375 GM in 0.9 % Sodium Chloride Mini Bag 100 ML IVPB SCH ×2 (09:18)
[2020-04-14] MEDS: allopurinoL 300 MG TABLET PO SCH (09:19)
[2020-04-14] MEDS: Cholecalciferol (D-3) 1,000 UNIT (25MCG) TABLET PO SCH (09:20)
[2020-04-14] MEDS: calcitrioL 0.25 MCG CAPSULE PO SCH (09:20)
[2020-04-14] MEDS: Aspirin Enteric Coated 81 MG Tablet PO SCH (09:20)
[2020-04-14] MEDS: Nicotine 14 MG PATCH.TD24 TD SCH (09:21)
[2020-04-14] MEDS ORDERED: Vancomycin 1,500 MG/265 ML IV.SOLN IVPB SCH (10:00)
[2020-04-14] MEDS ORDERED: Vancomycin 1,500 MG/265 ML IV.SOLN IVPB ONE (10:00)
[2020-04-14 11:39] VITALS: BP 132/86
[2020-04-14] MEDS ORDERED: Haloperidol Oral Conc 10 MG/5 ML UDC PO PRN (14:18)
== END 2020-04-14 14:50 | disposition hospice, inpatient (51) | DRG 871 ==
LOC: 2ANU 09:25 → EMEROOARM 09:25 → SUATTDRO 13:59 → 2ANU 15:31 → 2NNU 04-13 20:12
PROVIDERS: ADMIT Internal Medicine; ATTEND Pharmacist

== ENCOUNTER 2020-04-14 13:51 | Inpatient (IN) ==
[2020-04-14] MEDS ORDERED: Bisacodyl 10 MG RECTAL SUPPOSITORY RC PRN (15:12)
[2020-04-14] MEDS ORDERED: *HR* FentaNYL (PF) 100 MCG/2 ML VIAL IVP ONE ×2 (15:15→15:44)
[2020-04-14] MEDS ORDERED: Scopolamine Patch 1.5 MG PATCH.TD72 TD SCH (15:15)
[2020-04-14] MEDS ORDERED: Haloperidol Oral Conc 10 MG/5 ML UDC PO PRN (15:16)
[2020-04-14] MEDS ORDERED: Atropine Sulfate 1% 40 DROP/2 ML BOTTLE SL PRN (15:23)
[2020-04-14] MEDS: *HR* LORazepam 2 MG/ML VIAL IVP PRN ×2 (15:41→15:58)
[2020-04-14] MEDS ORDERED: Glycopyrrolate 0.2 MG/ML VIAL IVP PRN (15:44)
== END 2020-04-14 15:56 | disposition expired | DRG 951 ==
LOC: 2ANU 15:22
PROVIDERS: ADMIT Internal Medicine Hospice and Palliative Medicine; ATTEND Internal Medicine Hospice and Palliative Medicine